=== PATIENT | female | born 1980 | race African-American/Black ===

== ENCOUNTER 2018-01-29 08:12 | Emergency (ER) | payer OTHER ==
[2018-01-29] MEDS ORDERED: MORPHINE 4 MG/ML SYR ONE (08:41)
[2018-01-29] MEDS ORDERED: ONDANSETRON 4 MG/2 ML VIAL ONE (08:41)
[2018-01-29] MEDS ORDERED: NA CHLORIDE 0.9% 1,000 ML ONE (08:41)
[2018-01-29 09:04] LABS: Absolute Lymphocytes (CBC) 1.5 K/uL (0.7-4.9); Absolute Monocytes 0.3 K/uL (0.1-1.3); Absolute Neutrophil 6.5 K/uL (1.8-8.0); Basophils % 0.9 % (0-1.3); Eosinophils % 0.2 % (0-4.4); Hematocrit 47.6 % (36.0-45.0); Lymphocytes % 18.1 % (15.3-44.8); MCH 31.6 pg (27.0-35.0); MCV 92.4 fL (80-100); MPV 8.3 fL (7.6-11.3); Monocytes % 4.1 % (3.3-12.3); RBC Red Blood Cell Count 5.15 M/uL (3.86-4.86)
[2018-01-29 09:43] LABS: ALT/SGPT 22 U/L (12-78); AST/SGOT 20 U/L (15-37); Albumin 4.5 g/dL (3.4-5.0); Alkaline Phosphatase 63 U/L (45-117); BUN Blood Urea Nitrogen 6 mg/dL (7-18); Bicarbonate 27 mmol/L (21-32); Bilirubin Direct < 0.1 mg/dL (0-0.2); Bilirubin Total 0.2 mg/dL (0.2-1.0); Glucose Level 119 mg/dL (74-106); Lipase 256 U/L (73-393); Potassium 3.9 mmol/L (3.5-5.1); Sodium Level 137 mmol/L (136-145)
--- NOTE | 2018-01-29 11:09 | RAD REPORT ---
EXAM DESCRIPTION: CT - Stone Protocol - 01/29/2018 11:00 am CLINICAL HISTORY: Flank pain. left sided abdominal pain COMPARISON: No comparisons TECHNIQUE: Axial images were obtained without oral or IV contrast. Lack of contrast limits solid org an and vascular assessment. The [id number] spans the entirety of the system partially obscuring uppermost abdomen and lung bases. Coronal reformatted images were obtained and reviewed. All CT scans are performed using dose optimization technique as appropriate and may include automated exposure control or mA/KV adjustment according to patient size. FINDINGS: The lower lung lopez are clear. Imaged portions of the liver and spleen show no suspicious findings on non-contrast imaging. The panc reas and adrenal glands are normal. No pathologic lymphadenopathy in the abdomen or pelvis. No urinary tract stones or obstructive uropathy. No bowel obstruction, free air, free fluid or abscess. Normal appendix noted. No significant bony abnormality. IMPRESSION: No urinary tract stones or obstructive uropathy.
[2018-01-29] MEDS ORDERED: LISINOPRIL 20 MG TAB ONE (11:14)
[2018-01-29] MEDS ORDERED: AMLODIPINE 5 MG TAB ONE (11:14)
--- NOTE | 2018-01-29 12:36 | ER ---
Nurse's Notes [facility] Name: Kaleigh Tellez Age: 37 yrs Sex: Female : 1980 Arrival Date: 01/29/2018 Time: 08:15 Bed 14 Private MD: None, None Diagnosis: Vomiting Presentation: 01/29 08:23 Presenting complaint: Patient states: has had left sided abd pain since , also iw has been vomiting, has not been able to keep BP med down, denies diarrhea, has been taking PO zofran and phenergan with no relief. Transition of care: patient was not received from another setting of care. Onset of symptoms was January 27, 2018. Risk Assessment: Do you want to hurt yourself or someone else? Patient reports no desire to harm self or others. Initial Sepsis Screen: Does the patient meet any 2 criteria? No. Patient's initial sepsis screen is negative. Does the patient have a suspected source of infection? No. Patient's initial sepsis screen is negative. Care prior to arrival: None. 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 - Social history:: Smoking status: Patient uses tobacco products, 1-2 cigarettes per day. - Ebola Screening: : Patient negative for fever greater than or equal to 101.5 degrees Fahrenheit, and additional compatible Ebola Virus Disease symptoms Patient denies exposure to infectious person Patient denies travel to an Ebola-affected area in the 21 days before illness onset No symptoms or risks identified at this time. Screenin:11 Abuse screen: Denies threats or abuse. Nutritional screening: No deficits noted. tw2 Tuberculosis screening: No symptoms or risk factors identified. Fall Risk None identified. Assessment: 08:30 General: Appears uncomfortable, Behavior is calm, cooperative, appropriate for age. tw2 Pain: Complains of pain in left upper quadrant. Neuro: Level of Consciousness is awake, alert, obeys commands, Oriented to person, place, time, situation. Cardiovascular: Heart tones S1 S2 Capillary refill < 3 seconds Patient's skin is warm and dry. Respiratory: Airway is patent Respiratory effort is even, unlabored, Respiratory pattern is regular, symmetrical, Breath sounds are clear bilaterally. GI: Abdomen is flat, Bowel sounds present X 4 quads. Abd is soft X 4 quads. : No signs and/or symptoms were reported regarding the genitourinary system. EENT: No signs and/or symptoms were reported regarding the EENT system. Derm: No signs and/or symptoms reported regarding the dermatologic system. Musculoskeletal: Capillary refill < 3 seconds, Range of motion: intact in all extremities. 10:05 Reassessment: Patient appears in no apparent distress at this time. Patient and/or tw2 family updated on plan of care and expected duration. Pain level reassessed. Patient is alert, oriented x 3, equal unlabored respirations, skin warm/dry/pink. Reassessment: provider notified iv infiltration, no iv access at this time, MARINA Morales unable to get iv at this time. 11:00 Reassessment: Patient appears in no apparent distress at this time. No changes from tw2 previously documented assessment. Patient and/or family updated on plan of care and expected duration. Pain level reassessed. Patient is alert, oriented x 3, equal unlabored respirations, skin warm/dry/pink. 12:00 Reassessment: Patient appears in no apparent distress at this time. No changes from tw2 previously documented assessment. Patient and/or family updated on plan of care and expected duration. Pain level reassessed. Patient is alert, oriented x 3, equal unlabored respirations, skin warm/dry/pink. 13:00 Reassessment: Patient appears in no apparent distress at this time. No changes from tw2 previously documented assessment. Patient and/or family updated on plan of care and expected duration. Pain level reassessed. Patient is alert, oriented x 3, equal unlabored respirations, skin warm/dry/pink. Vital Signs: 08:26 BP 200 / 139; Pulse 89; Resp 16; Temp 98.2(O); Pulse Ox 98% on R/A; Pain 10/10; iw 09:10 BP 193 / 101; Pulse 79; Resp 17; Pulse Ox 99% on R/A; tw2 11:00 BP 177 / 103; Pulse 79; Resp 17; Pulse Ox 99% on R/A; tw2 12:26 BP 178 / 114; Pulse 77; Resp 18; Pulse Ox 100% on R/A; tw2 ED Course: 08:15 Patient arrived in ED. sb2 08:15 None, None is Private Physician. sb2 08:18 [facility]. jmm 08:18 Loy Ya MD is Attending Physician. jmm 08:25 Triage completed. iw 08:25 Placed in gown. Bed in low position. Call light in reach. Adult w/ patient. Pulse ox tw2 on. NIBP on. Warm blanket given. 08:26 Arm band placed on. iw 08:27 Ann-Marie Page, MARINA is Primary Nurse. tw2 08:45 Missed attempt(s): 22 gauge in left antecubital area. Bleeding controlled, band aid tw2 applied, catheter tip intact. Missed attempt(s): 22 gauge in left antecubital area. Bleeding controlled, band aid applied, catheter tip intact. 08:50 Inserted saline lock: 22 gauge in right antecubital area, using aseptic technique. tw2 ,using aseptic technique. per MARINA Lind Blood collected. 09:55 IV discontinued, intact, bleeding controlled, Pressure dressing applied, iv infiltrated tw2 to RIGHT AC. 10:29 Missed attempt(s): 22 gauge in left antecubital area. using US guided technique by tw2 DAVID Wilson. Bleeding controlled, band aid applied, catheter tip intact. 10:35 Missed attempt(s): 18 gauge in right antecubital area. using US guided technique by tw2 DAVID Menjivar. Bleeding controlled, band aid applied, catheter tip intact. 11:01 CT Stone Protocol In Process Unspecified. EDMS 12:35 Hemant Huerta MD is Referral Physician. jmm 13:09 No provider procedures requiring assistance completed. tw2 Administered Medications: 08:55 Drug: Zofran 4 mg Route: IVP; Site: right antecubital; tw2 10:07 Follow up: Response: No adverse reaction; Nausea is decreased tw2 08:58 Drug: morphine 4 mg Route: IVP; Site: right antecubital; tw 09:45 Follow up: Response: No adverse reaction; Pain is decreased tw 09:01 Drug: NS 0.9% 1000 ml Route: IV; Rate: 1 bolus; Site: right antecubital; tw 11:08 Drug: amLODIPine 5 mg Route: PO; 11:09 Drug: Lisinopril 20 mg Route: PO; Outcome: 12:36 Discharge ordered by . zeny 13: Patient left the ED. 13: Discharged to home ambulatory. 13: Condition: stable 13: Discharge instructions given to patient, Instructed on discharge instructions, follow up and referral plans. medication usage, Demonstrated understanding of instructions, follow-up care, medications, Prescriptions given X 2. Signatures: Dispatcher [employer] EDMS Steve Mendoza PA PA jmm Williams, Irene, RN MARINA iw Ann-Marie Page RN RN tw2 Claudia Webb sb2 Corrections: (The following items were deleted from the chart) 08:30 08:23 Acuity: ARIANE 3 iw
--- NOTE | 2018-01-29 12:36 | EDPHYS ---
Physician Documentation [facility] Name: Kaleigh Tellez Age: 37 yrs Sex: Female : 1980 Arrival Date: 01/29/2018 Time: 08:15 Bed 14 Private MD: None, None ED Physician Loy Ya HPI: 01/29 08:29 This 37 yrs old Black Female presents to ER via Ambulatory with complaints of Abdominal jmm Pain. 08:29 The patient presents with abdominal pain in the left upper quadrant. Onset: The jmm symptoms/episode began/occurred gradually, 4 day(s) ago. Associated signs and symptoms: Pertinent positives: vomiting. The symptoms are described as achy. Modifying factors: The symptoms are alleviated by nothing. This is a 37 year old female with a history of of htn that presents to the ED with left sided abdominal pain and vomiting beginning this past thrusday. Denies diarrhea. Patient states she has had similar episodes in the past with no diagnosis. . 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 - Social history:: Smoking status: Patient uses tobacco products, 1-2 cigarettes per day. - Ebola Screening: : Patient negative for fever greater than or equal to 101.5 degrees Fahrenheit, and additional compatible Ebola Virus Disease symptoms Patient denies exposure to infectious person Patient denies travel to an Ebola-affected area in the 21 days before illness onset No symptoms or risks identified at this time. ROS: 08:29 Constitutional: Negative for fever, chills, and weight loss, Eyes: Negative for injury, jmm pain, redness, and discharge, Cardiovascular: Negative for chest pain, palpitations, and edema, Respiratory: Negative for shortness of breath, cough, wheezing, and pleuritic chest pain. 08:29 Abdomen/GI: Positive for abdominal pain, nausea and vomiting. 08:29 All other systems are negative. Exam: 08:29 Head/Face: atraumatic. Eyes: EOMI, no conjunctival erythema appreciated ENT: Moist [facility] Mucus Membranes Neck: Trachea midline, Supple Chest/axilla: Normal chest wall appearance and motion. Cardiovascular: Regular rate and rhythm. No edema appreciated Respiratory: Normal respirations, no respiratory distress appreciated 08:29 Constitutional: The patient appears alert, awake, uncomfortable. 08:29 Abdomen/GI: Inspection: abdomen appears normal, Bowel sounds: normal, Palpation: soft, mild abdominal tenderness, in the left upper quadrant. 08:29 Back: ROM is normal, CVA tenderness, is absent. 08:29 Musculoskeletal/extremity: ROM: intact in all extremities. 08:29 Skin: Appearance: Color: normal in color. 08:29 Neuro: Orientation: is normal, Mentation: is normal, Memory: is normal. 08:29 Psych: Behavior/mood is pleasant, cooperative. Vital Signs: 08:26 BP 200 / 139; Pulse 89; Resp 16; Temp 98.2(O); Pulse Ox 98% on R/A; Pain 10/10; iw 09:10 BP 193 / 101; Pulse 79; Resp 17; Pulse Ox 99% on R/A; tw2 11:00 BP 177 / 103; Pulse 79; Resp 17; Pulse Ox 99% on R/A; tw2 12:26 BP 178 / 114; Pulse 77; Resp 18; Pulse Ox 100% on R/A; tw2 MDM: 08:26 Patient medically screened. [facility] 10:58 Data reviewed: vital signs, nurses notes, lab test result(s). [facility] 12:35 Counseling: I had a detailed discussion with the patient and/or guardian regarding: the [facility] historical points, exam findings, and any diagnostic results supporting the discharge/admit diagnosis, lab results, the need for outpatient follow up, to return to the emergency department if symptoms worsen or persist or if there are any questions or concerns that arise at home. 12:35 ED course: Patient states feeling better after IVF and antiemetics. Abdomen is soft. CT [facility] negative. I do not currently suspect an acute intraabdominal process. Patient advised to follow up with GI and otherwise given strict return precautions. patient understood and agrees with the plan of care. . 01/29 08:27 Order name: Basic Metabolic Panel; Complete Time: 09:45 [facility] 01/29 08:27 Order name: CBC with Diff; Complete Time: 09:15 [facility] 01/29 08:27 Order name: Creatinine for Radiology; Complete Time: 09:22 [facility] 01/29 08:27 Order name: Hepatic Function; Complete Time: 09:45 [facility] 01/29 08:27 Order name: Lipase; Complete Time: 09:45 [facility] 01/29 08:27 Order name: Test, Serum; Complete Time: 09:37 [facility] 01/29 08:27 Order name: IV Saline Lock; Complete Time: 09:02 [facility] 01/29 10:46 Order name: CT Stone Protocol; Complete Time: 11:10 [facility] 01/29 08:27 Order name: Labs collected and sent; Complete Time: 09:02 [facility] 01/29 11:37 Order name: Vital Signs [facility] Administered Medications: 08:55 Drug: Zofran 4 mg Route: IVP; Site: right antecubital; tw2 10:07 Follow up: Response: No adverse reaction; Nausea is decreased tw2 08:58 Drug: morphine 4 mg Route: IVP; Site: right antecubital; tw2 09:45 Follow up: Response: No adverse reaction; Pain is decreased tw2 09:01 Drug: NS 0.9% 1000 ml Route: IV; Rate: 1 bolus; Site: right antecubital; tw2 11:08 Drug: amLODIPine 5 mg Route: PO; tw2 11:09 Drug: Lisinopril 20 mg Route: PO; tw2 Disposition: 16:39 Co-signature as Attending Physician, Loy Ya MD. rn Disposition: 01/29/18 12:36 Discharged to Home. Impression: Vomiting. - Condition is Stable. - Discharge Instructions: Nausea and Vomiting, Adult. - Prescriptions for Zofran ODT 4 mg Oral tablet,disintegrating - place 1 tablet by TRANSLINGUAL route every 6 hours; 20 tablet. promethazine 25 mg Rectal suppository - insert 1 suppository by RECTAL route every 4 hours; 12 suppository. - Medication Reconciliation Form, Thank You Letter, Antibiotic Education, Prescription Opioid Use form. - Follow up: Private Physician; When: 2 - 3 days; Reason: Recheck today's complaints, Continuance of care, Re-evaluation by your physician. Follow up: Hemant Huerta MD; When: As needed; Reason: Recheck today's complaints, Continuance of care, Re-evaluation by your physician. Signatures: Dispatcher [employer] [facility] Steve Mendoza PA PA jmm Williams, Irene, Loy Rowell RN, MD MD rn Wise, Tara, RN RN tw2 Corrections: (The following items were deleted from the chart) 11:00 09:16 Abdomen Pelvis W Con+CT.RAD.BRZ ordered. [facility] EDNH 13:09 12:36 01/29/2018 12:36 Discharged to Home. Impression: Vomiting. Condition is Stable. tw2 Forms are Medication Reconciliation Form, Thank You Letter, Antibiotic Education, Prescription Opioid Use. Follow up: Private Physician; When: 2 - 3 days; Reason: Recheck today's complaints, Continuance of care, Re-evaluation by your physician. Follow up: Hemant Huerta; When: As needed; Reason: Recheck today's complaints, Continuance of care, Re-evaluation by your physician. zeny
== END 2018-01-29 13:09 | disposition home or self-care (01) ==
LOC: ER 08:12
DX: R11.10 Vomiting, unspecified (principal); I10 Essential (primary) hypertension; F17.210 Nicotine dependence, cigarettes, uncomplicated; Z88.8 Allergy status to other drugs, medicaments and biological substances
CPT/HCPCS: 36415; 74176; 76377; 80048; 80076; 83690; 84703; 85025; 96374; 96375; 99284; J2405; J7030

== ENCOUNTER 2020-12-31 17:28 | Emergency (ER) | payer SELFPAY ==
[2020-12-31 18:58] LABS: Absolute Lymphocytes (CBC) 2.4 K/uL (0.7-4.9); Basophils % 0.7 % (0-1.3); Hematocrit 37.9 % (36.0-45.0); Lymphocytes % 30.7 % (15.3-44.8); MPV 8.6 fL (7.6-11.3); RBC Red Blood Cell Count 4.19 M/uL (3.86-4.86)
[2020-12-31 19:06] LABS: Urine Blood 3+ (Negative); Urine Glucose Negative (Negative); Urine Protein Negative (Negative); Urine Specific Gravity 1.015 (1.005-1.030); Urine pH 7.5 (5.0-7.0)
[2020-12-31 19:13] LABS: Urine Specific Gravity/Preg 1.015 (1.005-1.030)
[2020-12-31] MEDS ORDERED: NA CHLORIDE 0.9% 1,000 ML ONE (19:22)
[2020-12-31] MEDS ORDERED: ACETAMINOPHEN 500 MG TAB ONE (19:22)
[2020-12-31 19:37] LABS: ALT/SGPT 32 U/L (12-78); AST/SGOT 24 U/L (15-37); Albumin 3.7 g/dL (3.4-5.0); Alkaline Phosphatase 79 U/L (45-117); BUN Blood Urea Nitrogen 9 mg/dL (7-18); Bicarbonate 28 mmol/L (21-32); Bilirubin Direct < 0.1 mg/dL (0-0.2); Bilirubin Total 0.2 mg/dL (0.2-1.0); Glucose Level 82 mg/dL (74-106); Lipase 191 U/L (73-393); Potassium 4.4 mmol/L (3.5-5.1); Protein, Total 8.2 g/dL (6.4-8.2); Sodium Level 139 mmol/L (136-145)
[2020-12-31 19:37] LABS: Protime INR 1.08
[2020-12-31 19:55] LABS: Urine Amorphous Sediment 1+ /HPF (NONE SEEN); Urine Bacteria <20 /HPF (<20)
--- NOTE | 2020-12-31 20:09 | RAD REPORT ---
EXAM DESCRIPTION: US - Transvaginal Study Probe - 12/31/2020 7:49 pm CLINICAL HISTORY: left lower adnexal pain COMPARISON: No comparisonsStone Protocol dated 01/29/2018 FINDINGS: The uterus is normal in size, shape and echotexture. The uterus measures 9 cm The endometrial stripe measures 8 mm The right ovary was not visualized. Left ovary measures 2.6 x 3.5 x 1.5 cm with volume of 7 cc. Simpl e appearing left adnexal cyst. Vascular flow present within the left ovary. No significant pelvic ascites. IMPRESSION: The right ovary was not visualized. The left ovary is unremarkable.
--- NOTE | 2020-12-31 21:59 | RAD REPORT ---
EXAM DESCRIPTION: CTAbdomen Pelvis Wo Contrast - 12/31/2020 9:47 pm CLINICAL HISTORY: left lower abdomen pain COMPARISON: Stone Protocol dated 01/29/2018 TECHNIQUE: CT of the abdomen and pelvis was performed. All CT scans are performed using dose optimization technique as appropriate and may include automated exposure control or mA/KV adjustment according to patient size. FINDINGS: Lower chest: No acute abnormality. Liver: No acute abnormality or suspicious lesions. Biliary: No biliary ductal dilatation. Stomach: No significant focal abnormality. Duodenum: No significant focal abnormality. Pancreas: No significant abnormality. Spleen: No significant abnormality. Adrenal: No suspicious lesions. Kidney/ureter: No hydronephrosis. No renal calculi. Retroperitoneum: No retroperitoneal adenopathy. Vascular: No aneurysm. Bowel: No significant focal abnormality. Appendix not definitively identified. No secondary signs of acute appendicitis. Peritoneum: Bilateral inguinal lymphadenopathy, the largest on the left side measuring 2.5 cm. Tiny f at containing umbilical hernia. Bladder: Grossly unremarkable. Reproductive: No adnexal masses. Bones: No acute fracture. Other: n/a IMPRESSION: Inguinal lymphadenopathy, left greater than right. Also noted is inflammatory stranding around the left inguinal lymph node. This may represent lymphadenitis. No inciting etiology is identi fied. Suggest clinical follow-up to ensure resolution. Ultrasound-guided biopsy could be considered i f adenopathy persists.
--- NOTE | 2020-12-31 22:20 | EDPHYS ---
Physician Documentation [facility] Name: Kaleigh Tellez Age: 40 yrs Sex: Female : 1980 Arrival Date: 12/31/2020 Time: 17:33 Bed 8 Private MD: ED Physician Abiel Do HPI: 12/31 18:30 This 40 yrs old Black Female presents to ER via Ambulatory with complaints of Pelvic cp Pain. 18:30 The patient presents with vaginal bleeding that is with clots. Onset: The cp symptoms/episode began/occurred this morning. 18:30 Associated signs and symptoms: Pertinent positives: cramping, nausea, left lower cp abdomen pain that started yesterday, Pertinent negatives: constipation, diarrhea, fever, vomiting. Severity of symptoms: in the emergency department the symptoms are unchanged, despite home interventions. The patient's method of control includes nothing. Patient reports LMP 2 weeks ago, history of HTN but stopped taking prescribed meds. 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 - Social history:: Smoking status: Patient reports the use of cigarette tobacco products, denies chronic smoking, but will smoke occasionally. ROS: 18:35 Constitutional: Negative for body aches, chills, fever, poor PO intake. cp 18:35 Eyes: Negative for injury, pain, redness, and discharge. cp 18:35 ENT: Negative for ear pain, sore throat, difficulty swallowing, difficulty handling secretions. 18:35 Cardiovascular: Negative for chest pain, palpitations. 18:35 Respiratory: Negative for cough, shortness of breath, wheezing. 18:35 Abdomen/GI: Positive for abdominal pain, nausea, Negative for vomiting, diarrhea, constipation. 18:35 Back: Negative for radiated pain. 18:35 : Positive for vaginal bleeding, Negative for urinary symptoms. 18:35 Neuro: Negative for altered mental status, dizziness, headache, weakness. 18:35 All other systems are negative. Exam: 18:40 Constitutional: The patient appears in no acute distress, alert, awake, non-toxic, well cp developed, well nourished, uncomfortable. 18:40 Head/Face: Normocephalic, atraumatic. cp 18:40 Eyes: Periorbital structures: appear normal, Conjunctiva: normal, no exudate, no injection, Sclera: no appreciated abnormality, Lids and lashes: appear normal, bilaterally. 18:40 ENT: External ear(s): are unremarkable, Nose: is normal, Mouth: Lips: moist, Oral mucosa: moist, Posterior pharynx: Airway: no evidence of obstruction, patent. 18:40 Chest/axilla: Inspection: normal. 18:40 Cardiovascular: Rate: normal, Rhythm: regular. 18:40 Respiratory: the patient does not display signs of respiratory distress, Respirations: normal, no use of accessory muscles, no retractions, labored breathing, is not present, Breath sounds: are clear throughout, no decreased breath sounds, no stridor, no wheezing. 18:40 Abdomen/GI: Inspection: abdomen appears normal, Bowel sounds: active, all quadrants, Palpation: soft, in all quadrants, mild abdominal tenderness, in the left lower quadrant, rebound tenderness, is not appreciated, voluntary guarding, is elicited in the left lower quadrant. 18:40 Back: CVA tenderness, is absent. 18:40 Skin: cellulitis, is not appreciated, no rash present. 18:40 Neuro: Orientation: to person, place \T\ time. Mentation: is normal, Motor: moves all fours, strength is normal, Sensation: is normal. Vital Signs: 17:34 BP 208 / 125; Pulse 97; Resp 18; Temp 98.4; Pulse Ox 100% ; Weight 65.77 kg; Height 5 ch5 ft. 1 in. (154.94 cm); Pain 8/10; 19:01 BP 166 / 102; Pulse 94; Resp 16; Pulse Ox 99% on R/A; jt3 17:34 Body Mass Index 27.40 (65.77 kg, 154.94 cm) ch5 MDM: 18:03 Patient medically screened. cp 18:30 Differential diagnosis: dysmenorrhea, ectopic , Neoplasm ovarian cyst, pelvic cp inflammatory disease, ruptured ectopic , uterine fibroids, urinary tract infection, vaginosis. 22:10 Data reviewed: vital signs, nurses notes, lab test result(s), radiologic studies, CT cp scan, ultrasound. 22:10 Counseling: I had a detailed discussion with the patient and/or guardian regarding: the cp historical points, exam findings, and any diagnostic results supporting the discharge/admit diagnosis, lab results, radiology results, the need for outpatient follow up, an OB/Gyne specialist, to return to the emergency department if symptoms worsen or persist or if there are any questions or concerns that arise at home. Response to treatment: the patient's symptoms have mildly improved after treatment, and as a result, I will discharge patient. ED course: VSS. Labs reviewed and H/H stable. Discussed elevated blood pressure and need for f/u. Will treat enlarged lymph nodes with oral antibiotic. Discharge to home for continued monitoring and recommend gynecology f/u. 12/31 18:20 Order name: Basic Metabolic Panel; Complete Time: 20:01 cp 12/31 18:20 Order name: CBC with Diff; Complete Time: 19:20 cp 12/31 19:34 Interpretation: Reviewed. cp 12/31 18:20 Order name: Hepatic Function; Complete Time: 20:01 cp 12/31 20:01 Interpretation: Normal except: GLOB 4.5; A/G 0.8. cp 12/31 18:20 Order name: Lipase; Complete Time: 20:01 cp 12/31 18:20 Order name: PT-INR; Complete Time: 22:06 cp 12/31 18:20 Order name: Ptt, Activated; Complete Time: 22:06 cp 12/31 18:20 Order name: US Transvaginal Study (Probe); Complete Time: 20:11 cp 12/31 18:20 Order name: Urine Microscopic Only; Complete Time: 20:01 cp 12/31 20:01 Interpretation: Normal except: URBC 5-10; SQEPI 5-10. cp 12/31 18:20 Order name: Type And Screen; Complete Time: 22:06 cp 12/31 19:05 Order name: Urine Dipstick-Ancillary; Complete Time: 19:20 EDMS 12/31 19:34 Interpretation: Normal except: UBLD 3+; UPH 7.5. cp 12/31 19:06 Order name: Urine --Ancillary (enter results); Complete Time: 19:20 tt3 12/31 21:22 Order name: CT Abd/Pelvis - Without Contrast; Complete Time: 22:06 cp 12/31 18:20 Order name: IV Saline Lock; Complete Time: 19:23 cp 12/31 18:20 Order name: Labs collected and sent; Complete Time: 19:23 cp 12/31 18:20 Order name: Urine Dipstick-Ancillary (obtain specimen); Complete Time: 19:00 cp 12/31 18:20 Order name: Urine Test (obtain specimen); Complete Time: 19:00 cp Administered Medications: 18:59 Drug: Tylenol 1000 mg Route: PO; jt3 19:22 Drug: NS 0.9% 1000 ml Route: IV; Rate: 1000 ml/hr; Site: left hand; [facility] Disposition: 01/01 03:43 Co-signature as Attending Physician, Abiel Do MD. 7 Disposition Summary: 12/31/20 22:19 Discharge Ordered Location: Home cp Problem: new cp Symptoms: have improved cp Condition: Stable cp Diagnosis - Enlarged lymph nodes, unspecified - lower abdomen cp - Abnormal uterine and vaginal bleeding, unspecified cp - Hypertensive heart disease without heart failure cp Followup: cp - With: Olamide Zafar MD - When: 1 - 2 days - Reason: vaginal bleeding Discharge Instructions: - Discharge Summary Sheet cp - Abnormal Uterine Bleeding cp - Lymphadenopathy cp - Hypertension, Adult cp Forms: - Medication Reconciliation Form cp - Thank You Letter cp - Antibiotic Education cp - Prescription Opioid Use cp Prescriptions: - Clindamycin HCl 300 mg Oral Capsule - take 1 capsule by ORAL route every 6 hours for 10 days; 40 capsule; Refills: 0, cp Product Selection Permitted - Ibuprofen 800 mg Oral Tablet - take 1 tablet by ORAL route every 8 hours As needed take with food; 30 tablet; cp Refills: 0, Product Selection Permitted Signatures: Dispatcher [employer] EDVA Sarthak Lambert PA PA cp Leal, Jahala RN RN jl7 Abiel Do MD MD mh7 Jak Maier RN RN ch5 [facility] RN RN jt3 Corrections: (The following items were deleted from the chart) 12/31 21:22 20:21 Abdomen Pelvis W Con+CT.RAD.BRZ ordered. EDMS EDMS
--- NOTE | 2020-12-31 22:20 | ER ---
Nurse's Notes [facility] Name: Kaleigh Tellez Age: 40 yrs Sex: Female : 1980 Arrival Date: 12/31/2020 Time: 17:33 Bed 8 Private MD: Diagnosis: Enlarged lymph nodes, unspecified-lower abdomen;Abnormal uterine and vaginal bleeding, unspecified;Hypertensive heart disease without heart failure Presentation: 12/31 17:34 Chief complaint: Patient states: Lower abd pain starting yesterday. " I think it is ch5 ovarian cyst" woke up with Vag bleeding. Coronavirus screen: Vaccine status: Patient reports being unvaccinated. Ebola Screen: Patient negative for fever greater than or equal to 101.5 degrees Fahrenheit, and additional compatible Ebola Virus Disease symptoms Patient denies exposure to infectious person. Patient denies travel to an Ebola-affected area in the 21 days before illness onset. No symptoms or risks identified at this time. Initial Sepsis Screen: Does the patient meet any 2 criteria? No. Patient's initial sepsis screen is negative. Does the patient have a suspected source of infection? No. Patient's initial sepsis screen is negative. Risk Assessment: Do you want to hurt yourself or someone else? Patient reports no desire to harm self or others. Onset of symptoms was December 30, 2020. 17:34 Method Of Arrival: Ambulatory [facility] 17:34 Acuity: ARIANE 3 ch5 Triage Assessment: 17:38 General: Appears uncomfortable, Behavior is anxious, crying. Pain: Complains of pain in ch5 right lower quadrant and more severe left lower quadrant. 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 - Social history:: Smoking status: Patient reports the use of cigarette tobacco products, denies chronic smoking, but will smoke occasionally. Screenin:56 Abuse screen: Denies threats or abuse. Denies injuries from another. Nutritional jl7 screening: No deficits noted. Tuberculosis screening: No symptoms or risk factors identified. Fall Risk IV access (20 points). Total Ayala Fall Scale indicates No Risk (0-24 pts). Assessment: 18:59 General: Appears in no apparent distress. Behavior is calm. Pain: Complains of pain in jt3 pelvis Pain radiates to pelvis Pain currently is 6 out of 10 on a pain scale. Quality of pain is described as sharp. : Reports cramping, Pain on the left pelvic region. Pt. endorses vaginal bleeding since yesterday. Denies dizziness. Vital Signs: 17:34 BP 208 / 125; Pulse 97; Resp 18; Temp 98.4; Pulse Ox 100% ; Weight 65.77 kg; Height 5 ch5 ft. 1 in. (154.94 cm); Pain 8/10; 19:01 BP 166 / 102; Pulse 94; Resp 16; Pulse Ox 99% on R/A; jt3 17:34 Body Mass Index 27.40 (65.77 kg, 154.94 cm) ch5 ED Course: 17:33 Patient arrived in ED. ds1 17:37 Triage completed. ch5 17:38 Arm band placed on right wrist. ch5 17:49 Sarthak Lambert PA is PHCP. cp 17:49 Loy Ya MD is Attending Physician. cp 18:04 [facility], RN is Primary Nurse. jt3 18:56 Patient has correct armband on for positive identification. Placed in gown. Bed in low jl7 position. Call light in reach. Side rails up X 1. seal mixing operator on. Pulse ox on. NIBP on. 19:01 No provider procedures requiring assistance completed. jt3 19:21 Abiel Do MD is Attending Physician. cp 19:22 Initial lab(s) drawn, by ky, sent to lab. Inserted saline lock: 22 gauge in right hand, jl7 using aseptic technique. Blood collected. 19:49 US Transvaginal Study (Probe) In Process Unspecified. EDMS 21:48 CT Abd/Pelvis - Without Contrast In Process Unspecified. EDMS 22:18 Olamide Zafar MD is Referral Physician. cp 22:37 IV discontinued, intact, bleeding controlled, No redness/swelling at site. Pressure df1 dressing applied. Administered Medications: 18:59 Drug: Tylenol 1000 mg Route: PO; jt3 19:22 Drug: NS 0.9% 1000 ml Route: IV; Rate: 1000 ml/hr; Site: left hand; jl7 Outcome: 22:19 Discharge ordered by . cp 22:37 Discharged to home ambulatory. df1 22:37 Condition: stable 22:37 Discharge instructions given to patient, Instructed on discharge instructions, follow up and referral plans. medication usage, Demonstrated understanding of instructions, follow-up care, medications, Prescriptions given X 2. 22:38 Patient left the ED. df1 Signatures: Dispatcher [employer] EDMS Viviana Rmaos ds1 Sarthak Lambert PA PA cp Leal, Jahala, RN RN jl7 Jak Maier RN RN ch5 Giovanna Beck df1 [facility] RN RN jt3
[2020-12-31 22:45] VITALS: TEMP 98.4
[2020-12-31 22:46] VITALS: BP 166/102; O2SAT 99
== END 2020-12-31 22:38 | disposition home or self-care (01) ==
LOC: ER 17:28
DX: N93.9 Abnormal uterine and vaginal bleeding, unspecified (principal); R59.0 Localized enlarged lymph nodes; I11.9 Hypertensive heart disease without heart failure; F17.210 Nicotine dependence, cigarettes, uncomplicated; Z88.3 Allergy status to other anti-infective agents; Z88.8 Allergy status to other drugs, medicaments and biological substances
CPT/HCPCS: 36415; 74176; 76830; 80048; 80076; 81003; 81015; 81025; 83690; 85025; 85610; 85730; 86850; 86900; 86901; 99284; J7030

== ENCOUNTER 2021-02-06 08:11 | Inpatient (IN) | payer SELFPAY ==
[~2021-02-06 08:11] MED LIST: LORazepam 2 MG/ML VIAL ONE; RSI MEDICATION KIT IV ONE
[2021-02-06] MEDS ORDERED: NA CHLORIDE 0.9% 2,000 ML ONE (08:20)
[2021-02-06] MEDS ORDERED: propofoL 1,000 MG/100 ML VIAL IV ONE ×2 (08:26→19:52)
[2021-02-06] MEDS ORDERED: MIDAZOLAM HCL 2 MG/2 ML INJ ONE (08:46)
[2021-02-06 08:50] LABS: Urine Blood 3+ (Negative); Urine Glucose Trace (Negative); Urine Protein 3+ (Negative); Urine Specific Gravity >=1.030 (1.005-1.030)
[2021-02-06 08:54] LABS: Absolute Lymphocytes (CBC) 4.9 K/uL (0.7-4.9); Basophils % 0.3 % (0-1.3); Hematocrit 42.4 % (36.0-45.0); Lymphocytes % 9.3 % (15.3-44.8); MPV 7.3 fL (7.6-11.3); RBC Red Blood Cell Count 4.39 M/uL (3.86-4.86)
[2021-02-06 09:03] LABS: Protime INR 1.33
[2021-02-06] MEDS ORDERED: FOSPHENYTOIN PE 500 MG/10 ML VIAL ONE (09:05)
[2021-02-06] MEDS ORDERED: NA CHLORIDE 0.9% 100 ML ONE ×2 (09:05→09:44)
[2021-02-06] MEDS ORDERED: ROCURONIUM 50 MG/5 ML VIAL IV ONE (09:13)
--- NOTE | 2021-02-06 09:13 | RAD REPORT ---
EXAM DESCRIPTION: CT - Head Brain Wo Cont - 02/06/2021 8:58 am CLINICAL HISTORY: Seizure COMPARISON: None TECHNIQUE: Computed axial tomography of the head was obtained. IV contrast was not requested. All CT scans are performed using dose optimization technique as appropriate and may include automated exposure control or mA/KV adjustment according to patient size. FINDINGS: An intracranial bleed is not seen . Subtle low-density area right internal capsule and left caudate The ventricles are normal in caliber. No extra-axial fluid collection is noted. Fluid within the sinuses/ mastoids is not seen. IMPRESSION: Subtle low-density areas right internal capsule and left caudate. These could be acute o r chronic. MRI Brain recommended .
[2021-02-06 09:24] LABS: Albumin 3.8 g/dL (3.4-5.0); Alkaline Phosphatase 288 U/L (45-117); BUN Blood Urea Nitrogen 32 mg/dL (7-18); Bilirubin Direct 0.1 mg/dL (0-0.2); Bilirubin Total 0.2 mg/dL (0.2-1.0); Creatine Phosphokinase 386 U/L (26-192); Glucose Level 158 mg/dL (74-106); Lipase 492 U/L (73-393); Protein, Total 8.5 g/dL (6.4-8.2); Sodium Level 145 mmol/L (136-145)
[2021-02-06 09:26] LABS: Potassium 3.3 mmol/L (3.5-5.1)
[2021-02-06 09:27] LABS: ALT/SGPT 1071 U/L (12-78); AST/SGOT 1312 U/L (15-37); Bicarbonate 13 mmol/L (21-32)
[2021-02-06 09:28] LABS: Amylase 807 U/L (25-115); Troponin (Emerg Dept Use Only) 6.21 ng/mL (0.0-0.045)
[2021-02-06 09:30] LABS: Blood Morphology Comment NOT SEEN (NOT SEEN); Platelet Estimate ADEQ
[2021-02-06] MEDS ORDERED: NA CHLORIDE 0.9% 500 ML ONE (09:30)
[2021-02-06] MEDS ORDERED: NA CHLORIDE 0.9% 1,000 ML ONE ×2 (09:30→14:37)
[2021-02-06 09:31] LABS: Smudge Cells FEW; Toxic Granulation 1+
[2021-02-06 09:38] LABS: Urine Bacteria 20-50 /HPF (<20); Urine Urothelial Cells <5 /HPF (NONE SEEN)
[2021-02-06 09:39] LABS: Urine RBC <5 /HPF (NONE SEEN)
[2021-02-06] MEDS ORDERED: HYDROMORPHONE HCL 1 MG/ML INJ ONE (09:43)
[2021-02-06] MEDS ORDERED: CEFTRIAXONE 1000 MG/VIAL ONE ×2 (09:44→22:38)
[2021-02-06 09:46] LABS: Barbiturates NEGATIVE (NEGATIVE); Benzodiazepines NEGATIVE (NEGATIVE); Cocaine NEGATIVE (NEGATIVE); METHAMPHETAM NEGATIVE (NEGATIVE); Methadone NEGATIVE (NEGATIVE); Opiates NEGATIVE (NEGATIVE); Phencyclidine NEGATIVE (NEGATIVE); THC Cannibis NEGATIVE (NEGATIVE)
[2021-02-06] MEDS ORDERED: VANCOMYCIN 1.25 GM in NA CHLORIDE 0.9% 250 ML IVPB ONE (10:00)
[2021-02-06 10:11] LABS: CSF Glucose 179 mg/dL (40-70)
[2021-02-06 10:12] LABS: Arterial Blood Carboxyhemoglob 1.5 % (0-1.5); Blood Gas Oxyhemoglobin 95.8 % (94-97); Blood O2 Saturation 98.7 % (92-98.5)
[2021-02-06 10:29] LABS: Appearance CLEAR (CLEAR); Body Fluid Source CSF; Body Fluid WBC 2 /mm^3; Color of fluid Colorless (COLORLESS)
--- NOTE | 2021-02-06 10:30 | RAD REPORT ---
EXAM DESCRIPTION: Trace Single View02/06/2021 8:56 am CLINICAL HISTORY: Device placement endotracheal tube placement IMPRESSION: An endotracheal tube has been inserted with its tip in the very proximal right mainstem bronchus.
--- NOTE | 2021-02-06 10:32 | RAD REPORT ---
EXAM DESCRIPTION: Trace Single View02/06/2021 9:57 am CLINICAL HISTORY: Device placement endotracheal tube placement IMPRESSION: An endotracheal tube has been retracted. Tip lies at lexus Nasogastric tube is coiled within the stomach
[2021-02-06 10:34] LABS: Appearance CLEAR (CLEAR); Body Fluid Source CSF; Body Fluid WBC 2 /mm^3; Color of fluid Colorless (COLORLESS); Fluid Total Volume 2 ml
--- NOTE | 2021-02-06 10:34 | RAD REPORT ---
EXAM DESCRIPTION: Trace Single View02/06/2021 9:57 am CLINICAL HISTORY: Shortness of breath FINDINGS: Endotracheal tube with its tip at the lexus. Nasogastric tube is been retracted. The tip lies within the stomach 3.6 centimeters from the GE junct ion Left lateral base is hazy which may indicate atelectasis or infiltrate
[2021-02-06 10:52] LABS: CKMB Creatine Kinase MB 20.6 ng/mL (1.0-3.6)
[2021-02-06] MEDS ORDERED: NOREPINEPHRINE 4mg/D5W 250mL 4 MG/250 ML BAG IV ONE (11:57)
--- NOTE | 2021-02-06 12:13 | ER ---
Nurse's Notes [facility] Name: Kaleigh Tellez Age: 40 yrs Sex: Female : 1980 Arrival Date: 02/06/2021 Time: 08:12 Bed 27 Private MD: Diagnosis: Epileptic seizures related to external causes, not intractable, with status epilepticus;Altered mental status, unspecified;Acute kidney failure, unspecified Presentation: 02/06 08:12 Chief complaint: EMS states: "family found the pt this morning in this condition and jd3 would not wake up. gasping respirations. nasal trumpet applied. posturing noted. unresponsive.". Coronavirus screen: difficulty breathing, Client presents with at least one sign or symptom that may indicate coronavirus-19. Standard/surgical mask placed on the client. Ebola Screen: Patient negative for fever greater than or equal to 101.5 degrees Fahrenheit, and additional compatible Ebola Virus Disease symptoms. Initial Sepsis Screen: Does the patient meet any 2 criteria? Altered Mental Status. HR > 90 bpm. Yes Does the patient have a suspected source of infection? No. Patient's initial sepsis screen is negative. Risk Assessment: Do you want to hurt yourself or someone else? Patient reports no desire to harm self or others. Onset of symptoms was February 06, 2021. 08:12 Method Of Arrival: EMS: [facility] jd3 08:12 Acuity: ARIANE 1 jd3 Triage Assessment: 08:15 Respiratory: the patient has severe shortness of breath. jd3 08:15 Respiratory: Reports pt's family reported the pt would not wake up and was not jd3 breathing well. 18:30 Respiratory: Onset: The symptoms/episode began/occurred this morning. jd3 SURGICAL ENDOSCOPIST: 09:00 LMP N/A - tested negative UPT jd3 Historical: - Allergies: 08:55 Cycline family; jd3 08:55 HYDRALAZINE; jd3 08:55 Minocycline; jd3 08:55 TETRACYCLINES; jd3 - PMHx: 08:55 C Sections; Hypertension; jd3 - Immunization history:: Adult Immunizations unknown. - Social history:: Smoking status: unknown. - Family history:: not pertinent. - Hospitalizations: : No recent hospitalization is reported. Screenin:15 Abuse screen: Denies threats or abuse. Nutritional screening: No deficits noted. jd3 Tuberculosis screening: No symptoms or risk factors identified. Fall Risk None identified. Assessment: 08:15 Reassessment: Pt arrived unresponsive with nasal trumpet in place, snoring al4 respirations, posturing noted. Pt appears in distress, nurses and provider at bedside, prepping for intubation. 08:30 Reassessment: pt appears more relaxed after medication was given, respirations assisted al4 with ventilator, medications infusing through central line, pt is still posturing. 09:00 Reassessment: No changes from previously documented assessment. al4 09:30 Reassessment: posturing stopped, pt appears comfortable, respirations relaxed on al4 ventilator, family at bedside, provider at bedside discussing plan of care with family. medications infusing through central line with no problem. awaiting results. 10:00 Reassessment: No changes from previously documented assessment. Patients family al4 mentioned that patient has been taking "Kratum" and the provider has been made aware. 10:32 General: Appears ill, Behavior is sedated, intubated. Pain: Unable to use pain scale. al4 Patient is intubated. Neuro: Level of Consciousness is sedated, intubated. Oriented to sedated, intubated. Cardiovascular: Heart tones present Capillary refill < 3 seconds Clubbing of nail beds is absent Rhythm is sinus tachycardia. Respiratory: Airway via oral intubation Respiratory effort is assisted with ventilator Ventilator assessment: ET Tube: 7.5 23 cm at gum line. HOB > 30 degrees. Breath sounds are clear bilaterally. GI: Abdomen is non-distended, Bowel sounds present X 4 quads. Abd is soft. : No signs and/or symptoms were reported regarding the genitourinary system. EENT: No signs and/or symptoms were reported regarding the EENT system. Derm: Skin is intact, Skin is dry, Skin is normal, Skin temperature is cool. Musculoskeletal: No signs and/or symptoms reported regarding the musculoskeletal system. 12:00 Reassessment: blood pressure dropping, provider notified. Levophed started. pt with jd3 relaxed respirations on ventilator. central line and IV lines are patent. 12:15 Reassessment: blood pressure improved. provider at bedside talking with hospitalist. pt jd3 with relaxed respirations on ventilator. 12:45 Reassessment: No changes from previously documented assessment. Patient and/or family jd3 updated on plan of care and expected duration. Pain level reassessed. 13:15 Reassessment: No changes from previously documented assessment. Patient and/or family jd3 updated on plan of care and expected duration. Pain level reassessed. pt admitted to ER hold. Vital Signs: 08:19 BP 148 / 102; Pulse 133; Resp 22 A; Pulse Ox 100% on ETT ambu; jd3 08:22 BP 162 / 97; Pulse 135; Resp 23 A; Pulse Ox 100% on ETT vent; jd3 08:23 Weight 85 kg; ll3 08:31 BP 125 / 82; Pulse 137; Resp 28 A; Pulse Ox 100% on ETT vent; jd3 09:20 BP 100 / 69; Pulse 130; Resp 18 S; Pulse Ox 100% on ETT vent; jd3 09:25 BP 106 / 83; Pulse 132; Resp 16 A; Pulse Ox 100% on ETT vent; jd3 10:21 BP 116 / 82; Pulse 111; Resp 16; Temp 95.2; Pulse Ox 100% ; jl7 10:45 BP 108 / 93; Pulse 105; Resp 16 A; Pulse Ox 100% on ETT vent; al4 11:15 BP 101 / 74; Pulse 104; Resp 16 A; Pulse Ox 100% on ETT vent; jd3 11:30 BP 97 / 75; Pulse 101; Resp 16 A; Pulse Ox 100% on ETT vent; jd3 11:45 BP 65 / 39; Pulse 86; Resp 16 A; Pulse Ox 100% on ETT vent; jd3 11:50 BP 63 / 41; Pulse 85; Resp 16 A; Pulse Ox 100% on ETT vent; jd3 12:00 BP 81 / 52; Pulse 92; Resp 16 A; Pulse Ox 100% on ETT vent; jd3 12:05 BP 105 / 82; Pulse 94; Resp 16 A; Pulse Ox 100% on ETT vent; jd3 12:15 BP 108 / 91; Pulse 95; Resp 14 A; Pulse Ox 100% on ETT vent; jd3 12:30 BP 107 / 86; Pulse 96; Resp 16; Pulse Ox 100% ; jl7 12:45 BP 113 / 90; Pulse 96; Resp 16; Pulse Ox 100% ; jl7 13:00 BP 113 / 97; Pulse 98; Resp 16 A; Pulse Ox 100% on 30% FiO2 ETT vent; jl7 13:15 BP 121 / 94; Pulse 99; Resp 14; Pulse Ox 100% ; jl7 13:30 BP 113 / 92; Pulse 98; Resp 14; Pulse Ox 100% ; jl7 13:45 BP 121 / 99; Pulse 98; Resp 14; Pulse Ox 100% ; jl7 14:00 BP 118 / 93; Pulse 103; Resp 14 A; Pulse Ox 100% on 30% FiO2 ETT vent; jl7 14:15 BP 119 / 94; Pulse 98; Resp 15; Pulse Ox 100% ; jl7 14:30 BP 127 / 92; Pulse 100; Resp 14; Pulse Ox 100% ; jl7 14:45 BP 128 / 99; Pulse 100; Resp 14; Temp 99.2(R); Pulse Ox 100% ; jl7 10:21 pt placed on JAYLEN hugger jl7 14:45 JAYLEN Hugger turned off jl7 ED Course: 08:12 Patient arrived in ED. ds1 08:12 Maintain EMS IV. Dressing intact. Good blood return noted. Site clean \\T\\ dry. Gauge \\T\\ sean 3 site: 20 G left AC. 08:14 Loy Ya MD is Attending Physician. eb 08:17 Arm band placed on. EKG completed in triage. Results shown to MD. jd3 08:18 Assisted provider with intubation using 7.5 mm ETT via oral route. ET tube secured at jd3 23cm at the teeth. Set up intubation tray. Intubated by Loy Ya MD Placement verified by CO2 detector w/ + color change, auscultating bilateral breath sounds, CXR, Patient tolerated well. 08:24 Assisted provider with central line placement. Set up central line tray. Triple lumen jd3 line placed in right femoral. Line placed by Loy Ya MD Placement verified by blood return, Dressed with Tegaderm, Blood was collected. Patient tolerated well. 08:27 Patient has correct armband on for positive identification. Bed in low position. mh5 quality assurance monitor body on. Pulse ox on. NIBP on. 08:27 EKG done, by ED staff, reviewed by Loy Ya MD. 5 08:50 Urine Drug Screen Sent. 5 08:50 Amylase, Serum Sent. 5 08:50 Amylase Sent. 5 08:50 Basic Metabolic Panel Sent. mh5 08:50 Blood Culture Adult (2) Sent. mh5 08:50 CBC with Diff Sent. mh5 08:50 CPK Sent. mh5 08:50 Ckmb Sent. mh5 08:50 LFT's Sent. mh5 08:50 Lactate Sent. mh5 08:50 Lipase Sent. mh5 08:50 Procalcitonin Sent. mh5 08:50 Protime (+inr) Sent. mh5 08:50 Ptt, Activated Sent. mh5 08:50 Troponin (emerg Dept Use Only) Sent. mh5 08:51 Urine Microscopic Only Sent. mh5 08:51 Urine collected:. Schofield cath inserted, using sterile technique, 16 Fr., by ED staff, 5 balloon inflated, to gravity drainage, urine specimen collected. 08:55 Triage completed. jd3 08:56 Chest Single View XRAY In Process Unspecified. EDMS 08:58 CT Head Brain wo Cont In Process Unspecified. EDMS 09:05 NGT: inserted 14 Fr. via left nare. verified placement of air over stomach, verified jl7 return of gastric contents, Placement verified by X-ray, to intermittent suction. Returned gastric contents. Patient tolerated well. 09:57 XRAY Chest (1 view) In Process Unspecified. EDMS 09:57 CXR XRAY In Process Unspecified. EDMS 10:00 Mckinley Eller is Primary Nurse. al4 10:16 Yasmin Neumann, RN is Primary Nurse. jl7 10:20 Primary Nurse role handed off by Yasmin Neumann RN jl7 10:20 Jayson Mejia RN is Primary Nurse. jl7 12:11 Leatha Carrillo MD is Hospitalizing Provider. rn 12:15 Assist provider with lumbar puncture: Set up LP tray. Performed by Loy Ya MD CSF jd3 is clear. Puncture site dressed with 4X4s, Procedure was successful. Patient tolerated well. 13:15 Patient admitted, IV remains in place. jd3 20:46 Primary Nurse role handed off by Jayson Mejia, MARINA cs9 22:55 Charity Álvarez is Primary Nurse. tw5 02/08 07:59 Primary Nurse role handed off by Charity Álvarez bd 14:08 Echocardiogram with doppler done by biofuels technology development manager. tc Administered Medications: 02/06 08:12 Drug: Ativan (LORazepam) 2 mg Route: IVP; Site: left antecubital; jd3 08:14 Follow up: Response: No change in condition jl7 08:14 Drug: Ativan (LORazepam) 2 mg Route: IVP; Site: left antecubital; jd3 08:17 Drug: Etomidate 20 mg Route: IVP; Site: left antecubital; jd3 08:20 Follow up: Response: No adverse reaction jl7 08:17 Drug: Succinylcholine 100 mg Route: IVP; Site: left antecubital; jd3 08:25 Follow up: Response: No adverse reaction jl7 08:22 Drug: NS 0.9% (30 ml/kg) 30 ml/kg Route: IV; Rate: bolus; Site: left antecubital; jd3 10:30 Follow up: Response: No adverse reaction; IV Status: Completed infusion; IV Intake: 7 2500ml 08:31 Drug: Propofol 5 mcg/kg/min Route: IV; Rate: calculated rate; Site: left antecubital; jd3 22:56 Follow up: Rate change 20 mcg/kg/min tw5 08:50 Drug: Versed (midazolam) 3 mg {Note: 3 given per verbal order.} Route: IVP; Site: left jd3 antecubital; 10:28 Follow up: Response: No adverse reaction; No change in condition jl7 09:13 Drug: Fosphenytoin 1 grams Route: IVPB; Site: right femoral; jd3 09:30 Follow up: Response: No adverse reaction; IV Status: Completed infusion jl7 09:15 Drug: Rocuronium 50 mg Route: IVP; Site: right femoral; jd3 09:17 Follow up: Response: No adverse reaction; Marked relief of symptoms jl7 10:00 Drug: Dilaudid (HYDROmorphone) 1 mg Route: IVP; Site: right femoral; al4 19:13 Follow up: Response: No adverse reaction; RASS: Alert and Calm (0) jd3 10:01 Drug: Rocephin (cefTRIAXone) 2 grams Route: IV; Rate: calculated rate; Site: right al4 femoral; 10:27 Follow up: Response: No adverse reaction; IV Status: Completed infusion jl7 10:18 Drug: vancoMYCIN 15 mg/kg Route: IVPB; Site: right femoral; al4 10:30 Follow up: Response: No adverse reaction; IV Status: Completed infusion jd3 12:00 Drug: Levophed (norepinephrine) (4 mg/250 mL D5W 4 mcg/min Route: IV; Rate: calculated jd3 rate; Site: right femoral; 13:00 Follow up: Response: No adverse reaction; IV Status: Infusion continued upon admission jd3 14:42 Drug: NS 0.9% 1000 ml Route: IV; Rate: 1 bolus; Site: left antecubital; jd3 15:40 Follow up: Response: No adverse reaction; IV Status: Completed infusion; IV Intake: jd3 1000ml Intake: 10:30 IV: 2500ml; Total: 2500ml. jl7 15:40 IV: 1000ml; Total: 3500ml. jd3 Outcome: 12:12 Decision to Hospitalize by Provider. rn 19:03 Admitted to ER Hold. [facility]. jd3 19:03 Condition: stable 19:03 Instructed on the need for admit. 02/15 20:02 Patient left the ED. mw2 Signatures: Dispatcher [employer] EDMS Cathy Henry Demi ds1 Loy Ya MD MD rn Callis, Tiffany, newspaper inserter EKG Ttc Shivani Irwin 5 Yasmin Neumann RN RN jl7 Jayson Mejia RN RN jd3 Onelia Biggs mw2 Marium Brown Tiffany 5 Shari John 9 Eloisa Kern RN RN 3 Mckinley Eller al4 Corrections: (The following items were deleted from the chart) 12 09:14 08:50 Versed (midazolam) 3 mg IVP in left antecubital jd3 jd3 10:19 09:05 NGT: inserted 16 Fr. other via OG verified placement of air over stomach, to jl7 intermittent suction. Patient tolerated well. jd3 12:16 12:11 Levophed (norepinephrine) (4 mg/250 mL D5W 4 mcg/min IV at calculated rate in jd3 right femoral jd3 19:13 10:26 Response: No adverse reaction jl7 jd3
--- NOTE | 2021-02-06 12:13 | EDPHYS ---
Physician Documentation [facility] Name: Kaleigh Tellez Age: 40 yrs Sex: Female : 1980 Arrival Date: 02/06/2021 Time: 08:12 Bed 27 Private MD: ED Physician Loy Ya HPI: 02/06 08:31 This 40 yrs old Black Female presents to ER via Unassigned with complaints of Seizure. rn 08:31 The patient presents after having a possible seizure episode. Character of seizure(s): rn Loss of consciousness: the patient experienced loss of consciousness, Motor activity: generalized, Incontinence: none, Circulation: the patient did not experience evidence of pulse disturbance. Seizure onset: the onset is not known. Associated injury: The patient did not suffer any apparent associated injury. Current symptoms: decreased level of consciousness. It is unknown whether or not the patient has had similar symptoms in the past. The patient has not recently seen a physician. EMS reports called out for unresponsiveness. Daughter here and states patient was out of it since last night. Patient is known to take pain medication and Ambien that has not prescribed her. No known trauma. No story of illness. Family unable to wake up patient this morning. EMS reports posturing and seizure-like activity the entire time that they have had her. They obtained a line and tried Narcan without response. No other medication given. EMS placed nasal trumpet but was not intubated or being bagged.. [employer]: 09:00 LMP N/A - tested negative UPT jd3 Historical: - Allergies: 08:55 Cycline family; jd3 08:55 HYDRALAZINE; jd3 08:55 Minocycline; jd3 08:55 TETRACYCLINES; jd3 - PMHx: 08:55 C Sections; Hypertension; jd3 - Immunization history:: Adult Immunizations unknown. - Social history:: Smoking status: unknown. - Family history:: not pertinent. - Hospitalizations: : No recent hospitalization is reported. ROS: 08:31 Unable to obtain ROS due to obtunded state. rn Exam: 08:31 Constitutional: This is a well developed, well nourished patient who is unresponsive, rn nasal trumpet in place, with stiff extremities and seizure-like activity Head/Face: Normocephalic, atraumatic. Eyes: Pupils 6 mm, reactive, deviation to the right ENT: Dry mucous membranes Neck: Trachea midline, no masses palpated Cardiovascular: Tachycardic, regular, no pulse deficits Respiratory: Sonorous respirations, nasal trumpet in place Abdomen/GI: Soft, nondistended Skin: Warm, dry MS/ Extremity: Pulses equal, no cyanosis. Neuro: GCS of 3, no response to pain, stiff extremities with decerebrate posturing. 09:57 ECG was reviewed by the Attending Physician. rn Vital Signs: 08:19 BP 148 / 102; Pulse 133; Resp 22 A; Pulse Ox 100% on ETT ambu; jd3 08:22 BP 162 / 97; Pulse 135; Resp 23 A; Pulse Ox 100% on ETT vent; jd3 08:23 Weight 85 kg; ll3 08:31 BP 125 / 82; Pulse 137; Resp 28 A; Pulse Ox 100% on ETT vent; jd3 09:20 BP 100 / 69; Pulse 130; Resp 18 S; Pulse Ox 100% on ETT vent; jd3 09:25 BP 106 / 83; Pulse 132; Resp 16 A; Pulse Ox 100% on ETT vent; jd3 10:21 BP 116 / 82; Pulse 111; Resp 16; Temp 95.2; Pulse Ox 100% ; jl7 10:45 BP 108 / 93; Pulse 105; Resp 16 A; Pulse Ox 100% on ETT vent; al4 11:15 BP 101 / 74; Pulse 104; Resp 16 A; Pulse Ox 100% on ETT vent; jd3 11:30 BP 97 / 75; Pulse 101; Resp 16 A; Pulse Ox 100% on ETT vent; jd3 11:45 BP 65 / 39; Pulse 86; Resp 16 A; Pulse Ox 100% on ETT vent; jd3 11:50 BP 63 / 41; Pulse 85; Resp 16 A; Pulse Ox 100% on ETT vent; jd3 12:00 BP 81 / 52; Pulse 92; Resp 16 A; Pulse Ox 100% on ETT vent; jd3 12:05 BP 105 / 82; Pulse 94; Resp 16 A; Pulse Ox 100% on ETT vent; jd3 12:15 BP 108 / 91; Pulse 95; Resp 14 A; Pulse Ox 100% on ETT vent; jd3 12:30 BP 107 / 86; Pulse 96; Resp 16; Pulse Ox 100% ; jl7 12:45 BP 113 / 90; Pulse 96; Resp 16; Pulse Ox 100% ; jl7 13:00 BP 113 / 97; Pulse 98; Resp 16 A; Pulse Ox 100% on 30% FiO2 ETT vent; jl7 13:15 BP 121 / 94; Pulse 99; Resp 14; Pulse Ox 100% ; jl7 13:30 BP 113 / 92; Pulse 98; Resp 14; Pulse Ox 100% ; jl7 13:45 BP 121 / 99; Pulse 98; Resp 14; Pulse Ox 100% ; jl7 14:00 BP 118 / 93; Pulse 103; Resp 14 A; Pulse Ox 100% on 30% FiO2 ETT vent; jl7 14:15 BP 119 / 94; Pulse 98; Resp 15; Pulse Ox 100% ; jl7 14:30 BP 127 / 92; Pulse 100; Resp 14; Pulse Ox 100% ; jl7 14:45 BP 128 / 99; Pulse 100; Resp 14; Temp 99.2(R); Pulse Ox 100% ; jl7 10:21 pt placed on JAYLEN hugger jl7 14:45 JAYLEN Hugger turned off jl7 Procedures: 08:28 Intubation: Ventilated with 100% NRB prior to procedure. O2 saturation prior to engraver ornamental design was 97 %. Intubated orally using # 4 Barbara blade with 7.5 mm ETT. was successful on first attempt. Cricoid pressure applied during procedure. Tube secured with ETT herrera at right side of mouth measured 23 cm at teeth. Placement verified by CO2 detector with (+) color change, auscultating bilateral breath sounds, O2 saturation after procedure was 100 %. Patient tolerated well. Central Line: the site was prepped with Betadine, in sterile fashion, a triple lumen catheter was inserted, in the right femoral vein, in 1 attempts. placement was verified, by blood return, the site was dressed with 4X4s, Tegaderm, using sterile technique, the patient tolerated the procedure, well. 09:33 Lumbar Puncture: Patient placed in left lateral decubitus position. Prepped with rn Betadine. Draped using sterile technique. Collected 8 ml's of clear fluid. Sample sent to lab. Puncture site dressed with band aid, Patient tolerated well. MDM: 08:27 Patient medically screened. rn 10:33 ED course: Family of patient came back in and states patient also known to chronically rn use kratom. Kratom could explain the hepatotoxicity and seizures that we are seeing. Elevated white blood cell count, CSF so far looks negative. Drug screen negative but kratom would not pop up and that his drug screen. Antibiotics administered given elevated white blood cell count but could just be secondary to either withdrawal or drug intoxication and seizures.. 10:45 ED course: Pt no longer with seizure activity. Vital signs have improved. Seemed to rn coincide with the fosphenytoin administration.. 12:10 Differential diagnosis: cerebral vascular accident, drug overdose, cardiac arrhythmia, rn seizure. Data reviewed: vital signs, nurses notes, lab test result(s), EKG, radiologic studies, CT scan, plain films, and as a result, I will admit patient. Counseling: I had a detailed discussion with the patient and/or guardian regarding: the historical points, exam findings, and any diagnostic results supporting the discharge/admit diagnosis, lab results, radiology results, the need for further work-up and treatment in the hospital. Response to treatment: the patient's symptoms have mildly improved after treatment, and as a result, I will admit patient. Admission orders: after a detailed discussion of the patient's condition and case, the admit orders are written by me. 12 08:23 Order name: Amylase, Serum ll3 12 08:23 Order name: Basic Metabolic Panel; Complete Time: 12:04 ll3 12 08:23 Order name: Blood Culture Adult (2) ll3 12 08:23 Order name: CBC with Diff; Complete Time: 09:34 ll3 02/06 08:23 Order name: CPK; Complete Time: 12:04 ll3 12 08:23 Order name: Ckmb; Complete Time: 12:04 ll3 1204 08:23 Order name: LFT's; Complete Time: 12:04 ll3 12 08:23 Order name: Lactate; Complete Time: 09:34 ll3 12 08:23 Order name: Lipase; Complete Time: 12:04 ll3 12 08:23 Order name: Procalcitonin; Complete Time: 09:34 ll3 12 08:23 Order name: Protime (+inr); Complete Time: 09:34 ll3 02/06 08:23 Order name: Ptt, Activated; Complete Time: 09:34 ll3 12/ 08:23 Order name: Troponin (emerg Dept Use Only); Complete Time: 12:04 ll3 12/04 08:23 Order name: Urine Microscopic Only; Complete Time: 10:10 ll3 / 08:24 Order name: Amylase; Complete Time: 12:04 EDMS 12 08:27 Order name: Urine Drug Screen; Complete Time: 10:10 rn 12/04 08:28 Order name: SARS-COV-2 RT PCR (Document "Date of Onset" if Symptomatic); Complete Time: rn 10:10 02/06 08:35 Order name: ABG; Complete Time: 10:30 eb 12/04 08:50 Order name: Urine Dipstick-Ancillary; Complete Time: 08:50 EDMS 02/06 08:56 Order name: Urine --Ancillary (enter results); Complete Time: 09:34 eb 12/04 09:03 Order name: Manual Differential; Complete Time: 09:34 EDMS 02/06 09:33 Order name: Csf Culture; Complete Time: 02:44 rn 04 09:33 Order name: Fluid Cell Count,Body; Complete Time: 10:35 rn /04 09:33 Order name: Spinal Fluid Profile; Complete Time: 12:04 rn 12/04 09:35 Order name: LAB Add On eb 02/06 09:36 Order name: Acetaminophen Level; Complete Time: 12:04 EDMS 04 09:40 Order name: Urine Culture; Complete Time: 02:44 EDMS 02/06 12:14 Order name: Glucose, Ancillary Testing EDFL 02/06 12:33 Order name: Lactate Sepsis 2 HR Follow-up; Complete Time: 07:08 EDMS 02/06 13:26 Order name: CKMB Creatine Kinase MB; Complete Time: 07:08 EDMS 02/06 13:26 Order name: Osmolality, Serum; Complete Time: 07:08 EDMS 02/06 13:29 Order name: Basic Metabolic Panel; Complete Time: 07:08 EDMS 02/06 13:29 Order name: Alcohol Serum/Plasma; Complete Time: 07:08 EDMS 02/06 13:29 Order name: Methylmalonic Acid; Complete Time: 02:44 EDMS 02/06 13:52 Order name: Ur Protein; Complete Time: 02:44 EDMS 02/06 14:00 Order name: Comprehensive Metabolic Panel EDMS 02/06 14:00 Order name: Comprehensive Metabolic Panel; Complete Time: 07:08 EDMS 02/06 14:00 Order name: Creatine Phosphokinase EDMS 02/06 14:00 Order name: Creatine Phosphokinase; Complete Time: 07:08 EDMS 02/06 14:00 Order name: Creatine Phosphokinase EDMS 02/06 14:00 Order name: Creatine Phosphokinase; Complete Time: 02:44 EDMS 02/06 14:00 Order name: Lactate EDMS 02/06 14:00 Order name: Lactate; Complete Time: 07:08 EDMS 02/06 14:00 Order name: Lipase EDMS 02/06 14:00 Order name: Lipase; Complete Time: 07:08 EDMS 02/06 14:00 Order name: Magnesium EDMS 02/06 14:00 Order name: Magnesium; Complete Time: 07:08 EDMS 02/06 14:00 Order name: CBC with Automated Diff EDMS 02/06 14:00 Order name: CBC with Automated Diff; Complete Time: 07:08 EDMS 02/06 14:01 Order name: NT PRO-BNP EDMS 02/06 14:01 Order name: NT PRO-BNP; Complete Time: 07:08 EDMS 02/06 14:01 Order name: Phosphorus EDMS 02/06 14:01 Order name: Phosphorus; Complete Time: 07:08 EDMS 02/06 14:01 Order name: Protime (+INR) EDMS 02/06 14:01 Order name: Protime (+INR); Complete Time: 07:08 EDMS 02/06 14:01 Order name: PTT, Activated Partial Thromb EDMS 02/06 14:01 Order name: PTT, Activated Partial Thromb; Complete Time: 07:08 EDMS 02/06 14:01 Order name: Troponin I EDMS 02/06 14:01 Order name: Troponin I; Complete Time: 07:08 EDMS 02/06 14:01 Order name: Troponin I EDMS 02/06 14:01 Order name: Troponin I; Complete Time: 02:44 EDMS 02/06 14:02 Order name: Uric Acid; Complete Time: 07:08 EDMS 02/07 05:20 Order name: ABG Arterial Blood Gas; Complete Time: 07:08 EDMS 02/07 07:31 Order name: Gram Stain--Aerobic Bottle EDMS 02/07 16:22 Order name: Glucose, Ancillary Testing; Complete Time: 02:44 EDMS 02/07 23:30 Order name: Glucose, Ancillary Testing; Complete Time: 02:44 EDMS 02/08 04:55 Order name: CBC with Automated Diff; Complete Time: 02:44 EDMS 02/08 05:08 Order name: Lactate; Complete Time: 02:44 EDMS 02/08 05:47 Order name: Procalcitonin; Complete Time: 02:44 EDMS 02/08 06:20 Order name: Comprehensive Metabolic Panel; Complete Time: 02:44 EDMS 02/08 06:20 Order name: Phosphorus; Complete Time: 02:44 EDMS 02/08 06:20 Order name: Creatine Phosphokinase; Complete Time: 02:44 EDMS 02/08 06:20 Order name: Troponin I; Complete Time: 02:44 EDMS 02/08 06:20 Order name: NT PRO-BNP; Complete Time: 02:44 EDMS 02/08 06:20 Order name: Magnesium; Complete Time: 02:44 EDMS 02/08 09:49 Order name: Vancomycin Level Trough; Complete Time: 02:44 EDMS 02/08 13:30 Order name: Glucose, Ancillary Testing; Complete Time: 02:44 EDMS 02/08 15:33 Order name: Phenytoin (Dilantin) Level; Complete Time: 02:44 EDMS 02/08 18:20 Order name: Glucose, Ancillary Testing; Complete Time: 02:44 EDMS 02/08 21:29 Order name: Potassium; Complete Time: 02:44 EDMS 02/08 23:53 Order name: Glucose, Ancillary Testing; Complete Time: 02:44 EDMS 02/09 05:24 Order name: Glucose, Ancillary Testing; Complete Time: 02:44 EDMS 02/09 05:50 Order name: CBC with Automated Diff; Complete Time: 02:44 EDMS 02/09 05:57 Order name: Comprehensive Metabolic Panel; Complete Time: 02:44 EDMS 02/09 05:57 Order name: Phosphorus; Complete Time: 02:44 EDMS 02/09 05:57 Order name: Magnesium; Complete Time: 02:44 EDMS 02/09 06:00 Order name: ABG Arterial Blood Gas; Complete Time: 02:44 EDMS 02/09 13:29 Order name: Hemoglobin; Complete Time: 02:44 EDMS 02/09 13:29 Order name: Hematocrit; Complete Time: 02:44 EDMS 02/09 13:30 Order name: Glucose, Ancillary Testing; Complete Time: 02:44 EDMS 02/09 18:29 Order name: Glucose, Ancillary Testing; Complete Time: 02:44 EDMS 02/10 00:50 Order name: Glucose, Ancillary Testing; Complete Time: 02:44 EDMS 02/10 02:08 Order name: UR POTASSIUM; Complete Time: 02:44 EDMS 02/10 02:08 Order name: UR SODIUM; Complete Time: 02:44 EDMS 02/10 02:12 Order name: Osmolality, Urine; Complete Time: 02:44 EDMS 02/10 04:58 Order name: CBC with Automated Diff; Complete Time: 02:44 EDMS 02/10 05:12 Order name: Miscellaneous Test Lab EDMS 02/10 05:20 Order name: Comprehensive Metabolic Panel; Complete Time: 02:44 EDMS 02/10 05:20 Order name: Renal Panel; Complete Time: 02:44 EDMS 02/10 05:20 Order name: Magnesium; Complete Time: 02:44 EDMS 02/10 05:20 Order name: Thyroid Stimulating Hormone; Complete Time: 02:44 EDMS 02/10 05:54 Order name: Osmolality, Serum; Complete Time: 02:44 EDMS 02/10 10:48 Order name: Blood Culture EDMS 02/10 12:23 Order name: Glucose, Ancillary Testing; Complete Time: 02:44 EDMS 02/10 15:22 Order name: Osmolality, Serum; Complete Time: 02:44 EDMS 02/10 19:00 Order name: Glucose, Ancillary Testing; Complete Time: 02:44 EDMS 02/10 22:51 Order name: KEPPRA (LEVETIRACETAM); Complete Time: 02:44 EDMS 02/11 01:09 Order name: Glucose, Ancillary Testing; Complete Time: 02:44 EDMS 02/11 04:33 Order name: CBC with Automated Diff EDMS 02/11 04:49 Order name: Comprehensive Metabolic Panel EDMS 02/11 04:49 Order name: Renal Panel EDMS 02/11 04:49 Order name: Magnesium EDMS 02/11 15:04 Order name: Osmolality, Serum EDMS 02/12 06:08 Order name: Renal Panel EDMS 02/12 06:08 Order name: Magnesium EDMS 02/12 16:13 Order name: Osmolality, Serum EDMS 02/13 05:58 Order name: Renal Panel EDMS 02/13 05:58 Order name: Magnesium EDMS 02/13 06:21 Order name: Protein Electo w/M Armani Serum EDMS 02/13 15:15 Order name: Osmolality, Serum EDMS 02/13 15:53 Order name: Aldosterone EDMS 02/06 08:23 Order name: Chest Single View XRAY; Complete Time: 10:30 ll3 02/06 08:23 Order name: Accucheck; Complete Time: 08:28 ll3 02/06 08:23 Order name: Cardiac monitoring; Complete Time: 08:29 ll3 02/06 08:23 Order name: EKG - Nurse/Tech; Complete Time: 08:28 ll3 02/06 08:23 Order name: IV Saline Lock - Large Bore; Complete Time: 08:28 ll3 02/06 08:23 Order name: Labs collected and sent; Complete Time: 08:50 ll3 02/06 08:23 Order name: O2 Per Protocol; Complete Time: 08:50 ll3 02/06 08:23 Order name: O2 Sat Monitoring; Complete Time: 08:50 ll3 02/06 08:23 Order name: Urine Dipstick-Ancillary (obtain specimen); Complete Time: 08:50 ll3 02/06 08:27 Order name: CT Head Brain wo Cont; Complete Time: 09:34 rn 02/06 09:33 Order name: LP Consents; Complete Time: 09:35 rn 02/06 09:33 Order name: LP Setup; Complete Time: 09:35 rn 02/06 09:41 Order name: XRAY Chest (1 view); Complete Time: 10:35 rn 02/06 09:51 Order name: CXR XRAY; Complete Time: 10:35 eb 02/06 14:00 Order name: CONS Physician Consult EDMS 02/06 14:00 Order name: CONS Physician Consult EDMS 02/06 14:00 Order name: CONS Physician Consult EDMS 02/06 14:00 Order name: NPO EDMS 02/06 14:02 Order name: Head Brain Wo Cont EDMS 02/06 14:02 Order name: Head Brain Wo Cont; Complete Time: 02:44 EDMS 02/06 14:02 Order name: Chest Single View; Complete Time: 02:44 EDMS 02/07 12:03 Order name: XRAY Chest (1 view) jl7 02/07 13:02 Order name: RAD; Complete Time: 02:44 EDMS 02/07 13:06 Order name: US; Complete Time: 02:44 EDMS 02/07 13:06 Order name: US; Complete Time: 02:44 EDMS 02/08 09:20 Order name: RAD; Complete Time: 02:44 EDMS 02/09 07:43 Order name: RAD; Complete Time: 02:44 EDMS 02/09 08:27 Order name: RAD; Complete Time: 02:44 EDMS 02/09 09:32 Order name: RAD; Complete Time: 02:44 EDMS 02/09 18:54 Order name: RAD; Complete Time: 02:44 EDMS 02/09 21:02 Order name: CT; Complete Time: 02:44 EDMS 02/10 08:20 Order name: RAD; Complete Time: 02:44 EDMS 02/10 08:21 Order name: RAD; Complete Time: 02:44 EDMS 02/11 14:16 Order name: RAD EDMS 02/11 16:57 Order name: MRI EDMS 02/11 17:00 Order name: MRI EDMS 02/12 08:08 Order name: MRI EDMS 02/13 18:50 Order name: CT EDMS 02/14 05:36 Order name: Renal Panel EDMS 02/14 05:36 Order name: Magnesium EDMS 02/15 04:51 Order name: Basic Metabolic Panel EDMS 02/15 04:51 Order name: Magnesium EDMS EC:57 Rate is 133 beats/min. Rhythm is regular. QRS [place] is Normal. NM interval is normal. rn QRS interval is normal. QT interval is normal. No Q waves. T waves are Normal. No ST changes noted. Clinical impression: Sinus tachycardia and PVCs. Interpreted by me. Reviewed by me. Administered Medications: 08:12 Drug: Ativan (LORazepam) 2 mg Route: IVP; Site: left antecubital; jd3 08:14 Follow up: Response: No change in condition 7 08:14 Drug: Ativan (LORazepam) 2 mg Route: IVP; Site: left antecubital; jd3 08:17 Drug: Etomidate 20 mg Route: IVP; Site: left antecubital; jd3 08:20 Follow up: Response: No adverse reaction jl7 08:17 Drug: Succinylcholine 100 mg Route: IVP; Site: left antecubital; jd3 08:25 Follow up: Response: No adverse reaction jl7 08:22 Drug: NS 0.9% (30 ml/kg) 30 ml/kg Route: IV; Rate: bolus; Site: left antecubital; jd3 10:30 Follow up: Response: No adverse reaction; IV Status: Completed infusion; IV Intake: jl7 2500ml 08:31 Drug: Propofol 5 mcg/kg/min Route: IV; Rate: calculated rate; Site: left antecubital; jd3 22:56 Follow up: Rate change 20 mcg/kg/min tw5 08:50 Drug: Versed (midazolam) 3 mg {Note: 3 given per verbal order.} Route: IVP; Site: left jd3 antecubital; 10:28 Follow up: Response: No adverse reaction; No change in condition jl7 09:13 Drug: Fosphenytoin 1 grams Route: IVPB; Site: right femoral; jd3 09:30 Follow up: Response: No adverse reaction; IV Status: Completed infusion jl7 09:15 Drug: Rocuronium 50 mg Route: IVP; Site: right femoral; jd3 09:17 Follow up: Response: No adverse reaction; Marked relief of symptoms jl7 10:00 Drug: Dilaudid (HYDROmorphone) 1 mg Route: IVP; Site: right femoral; al4 19:13 Follow up: Response: No adverse reaction; RASS: Alert and Calm (0) jd3 10:01 Drug: Rocephin (cefTRIAXone) 2 grams Route: IV; Rate: calculated rate; Site: right al4 femoral; 10:27 Follow up: Response: No adverse reaction; IV Status: Completed infusion jl7 10:18 Drug: vancoMYCIN 15 mg/kg Route: IVPB; Site: right femoral; al4 10:30 Follow up: Response: No adverse reaction; IV Status: Completed infusion jd3 12:00 Drug: Levophed (norepinephrine) (4 mg/250 mL D5W 4 mcg/min Route: IV; Rate: calculated jd3 rate; Site: right femoral; 13:00 Follow up: Response: No adverse reaction; IV Status: Infusion continued upon admission jd3 14:42 Drug: NS 0.9% 1000 ml Route: IV; Rate: 1 bolus; Site: left antecubital; jd3 15:40 Follow up: Response: No adverse reaction; IV Status: Completed infusion; IV Intake: jd3 1000ml Disposition Summary: 02/06/21 12:12 Hospitalization Ordered Hospitalization Status: Inpatient Admission rn Provider: Leatha Carrillo rn Condition: Fair rn Problem: new rn Symptoms: have improved rn Bed/Room Type: Standard rn Location: Telemetry/MedSurg (Inpatient)(02/15/21 16:51) 1 Room Assignment: [facility](02/15/21 16:51) [facility] Diagnosis - Epileptic seizures related to external causes, not intractable, with status rn epilepticus - Altered mental status, unspecified rn - Acute kidney failure, unspecified rn Forms: - Medication Reconciliation Form rn - SBAR form athletic training internship time excluding procedures: 12:10 Critical care time: Bedside Care: 55 minutes, Consultation: 5 minutes, Family rn Intervention: 15 minutes. Total time: 75 minutes Signatures: Dispatcher [employer] EDMS Loy Ya MD MD rn Davies, Jonathon RN RN jd3 Robert Archer RN RN Eloisa Garcia, RN RN ll3 Mckinley Eller Jahala RN jl7 Charity Álvarez tw5 Corrections: (The following items were deleted from the chart) 09:32 08:28 URINE DRUG SCREEN+CHEM UR.LAB.BRZ ordered. EDMS EDMS 13:50 13:29 Urine Creatinine, 24 Hour ordered. EDMS EDMS 13:50 13:29 Urine Protein, 24 HR ordered. EDMS EDMS 13:57 13:26 Uric Acid ordered. EDMS EDMS 15:18 12:12 Intensive Care Unit rn ja1 15:18 12:12 rn barby1 15:18 15:18 ja1 ja1 15:19 15:18 HLD3 ja1 ja1 02/15 16:51 1204 15:18 [facility] ER HOLD ja1 ja1 02/15 16:51 1204 15:19 ERHOLD- [place] [id number]
--- NOTE | 2021-02-06 13:00 | P.HP ---
Certification for Inpatient Patient admitted to: Inpatient With expected LOS: >2 Midnights Practitioner: I am a practitioner with admitting privileges, knowledge of patient current condition, hospital course, and medical plan of care. Services: Services provided to patient in accordance with Admission requirements found in Title 42 Section 412.3 of the Code of Federal Regulations Patient History Date of Service: 02/06/21 Reason for admission: Status epilepticus History of Present Illness: Patient is a 40yo who was admitted to the hospital with persistent seizures. Patient has a recent history of CBD Kratom usage. Last night, it was noted that she was very tired and not really acting appropriately. The family was concerned but let her sleep on the couch. They woke up to see her seizing while she was on the couch. She was unresponsive and EMS was notified. She has no history of seizure disorder. EMS brought her into the hospital and she was intubated as she was having numerous seizures which were uncontrolled. She was given Keppra and fosphenytoin. Her seizures finally stopped. Currently, she is on a propofol drip. She is also slightly hypotensive. She is severely acidotic as well as acute renal and liver failure. Patient be admitted for further evaluation. Allergies minocycline Allergy (Unverified 10/13/16 12:36) Unknown Tetracyclines Allergy (Verified 02/06/21 16:02) Anaphylaxis HYDRALAZINE Allergy (Uncoded 10/13/16 12:36) Unknown - Past Medical/Surgical History Past Medical History: Unable to obtain Past Surgical History: Unable to obtain - Family History Father Family History: Reviewed- Non-Contributory - Social History Smoking Status: Former smoker Alcohol use: No CD- Drugs: No Review of Systems is unable to be obtained Physical Examination - Vital Signs Temperature: 98 F Blood Pressure: 140/80 Pulse: 80 Respirations: 18 Pulse Ox (%): 95 - Physical Exam General: Other (intubated and sedated) HEENT: Atraumatic, PERRLA, Mucous membr. moist/pink, EOMI, Sclerae nonicteric Neck: Supple, 2+ carotid pulse no bruit, No LAD, Without JVD or thyroid abnormality Respiratory: Clear to auscultation bilaterally, Normal air movement Cardiovascular: Regular rate/rhythm, Normal S1 S2, No murmurs Gastrointestinal: Normal bowel sounds, Soft and benign, Non-distended, No tenderness Musculoskeletal: No clubbing, No swelling, No tenderness Integumentary: No rashes Neurological: Normal tone, Sensation intact, Abnormal gait, Abnormal speech, Abnormal strength, Abnormal cranial nerve function, Abnormal affect Lymphatics: No axilla or inguinal lymphadenopathy - Studies Laboratory Data (last 24 hrs) 02/06/21 08:33: PT 15.3 H, INR 1.33, APTT 31.4 02/06/21 08:33: WBC 53.20 H*, Hgb 12.7, Hct 42.4, Plt Count 372 02/06/21 08:33: Sodium 145, Potassium 3.3 L, BUN 32 H, Creatinine 2.51 H, Glucose 158 H, Total Bilirubin 0.2, AST 1312 H*, ALT 1071 H*, Alkaline Phosphatase 288 H, Amylase 807 H*, Lipase 492 H Microbiology Data (last 24 hrs): 02/06/21 09:47 Cerebral Spinal Fluid Gram Stain - Final Assessment & Plan - Problems (Diagnosis) (1) Status epilepticus Current Visit: Yes Status: Acute (2) Acute respiratory failure Current Visit: Yes Status: Acute (3) Elevated LFTs Current Visit: Yes Status: Acute (4) Acute renal insufficiency Current Visit: Yes Status: Acute (5) Elevated troponin Current Visit: Yes Status: Acute (6) Elevated CPK Current Visit: Yes Status: Acute - Plan 1. Anti epileptics 2. Continue with mechanical ventilation 3. Neurology and Pulmonary consultation 4. Aggressive IV hydration with bicarb drip 5. Monitor acidosis 6. Wean off Levophed 7. Continue with propofol drip 8. Repeat CT in the morning 9. Nephrology consultation appreciated 10. Spoke with Cardiology regarding elevated troponin which is likely related to status epilepticus 11. GI and DVT prophylaxis - Advance Directives Does patient have a Living Will: No Does patient have a Durable POA for Healthcare: No
[2021-02-06] MEDS ORDERED: ALBUTEROL 2.5 MG/3 ML NEB SOL NEB PRN (13:42)
[2021-02-06] MEDS ORDERED: IPRATROPIUM BROM 0.5MG/2.5ML NEB PRN (13:42)
[2021-02-06] MEDS ORDERED: ACETAMINOPHEN 500 MG TAB PO PRN (13:50)
[2021-02-06] MEDS ORDERED: ONDANSETRON 4 MG/2 ML VIAL IV PRN (13:50)
[2021-02-06] MEDS ORDERED: D5W 1,000 ML with NA BICARB 8.4% 100 MEQ IV SCH ×2 (14:00)
[2021-02-06] MEDS ORDERED: NACHLORIDE 0.45% 1,000 ML with NA BICARB 8.4% 75 MEQ IV SCH ×2 (14:00)
[2021-02-06 14:20] LABS: Potassium 3.9 mmol/L (3.5-5.1); Uric Acid 9.1 mg/dL (2.6-6.0)
[2021-02-06] MEDS ORDERED: NOREPINEPHRINE 4 MG in D5W 250 ML IV SCH (16:00)
[2021-02-06] MEDS: levETIRAcetam 1,000 MG in NA CHLORIDE 0.9% 100 ML IV SCH (16:10)
--- NOTE | 2021-02-06 16:43 | PN ---
Date of Progress Note: 02/06/2021 Reason For Consultation: Elevated BUN and creatinine, acidosis, electrolyte imbalance. History Of Present Illness: All the information has been obtained from the record as patient being intubated, also secondary to altered mental status and seizure. History Of Present Illness: This is 40-year-old female with significant past medical history negative apparently. The patient approached to the hospital because found with seizure. Upon arrival to the hospital, the patient had altered mental status. The patient found to have severe leukocytosis and elevated BUN and creatinine, creatinine 2.5, GFR 26. Reviewing the record couple of days ago, the patient was in the ER last month and at that time, on December 23, creatinine 0.7, normal GFR. This time patient had a creatinine 2.5, elevation in AST, ALT with severe acidosis. No major elevation in CK. The patient had a bicarb of 13. Apparently, the patient had been taking CBD with Kratom. No other history can be obtained. Has no family by bedside. Past Medical History: As above. Allergies: ALLERGIES TO MINOCYCLINE, HYDRALAZINE. Past Surgical History: None obtainable. Family History: None obtainable. Review of Systems: None obtainable. Social History: Active smoker, active drug abuse. Occasional alcohol. Physical Examination: Vital Signs: When I saw the patient; the patient on vent. Blood pressure 140/80, pulse of 80, afebrile. Chest: Clear to auscultation. Heart: S1, S2. Regular. Abdomen: Soft, nontender. Extremities: No edema. Neuro: The patient sedated, on vent. Pupil equal, reactive. Laboratory Data: Back in December; sodium 138, creatinine 0.7, GFR above 90. H and H 12.5/37. On this admission lab; WBC 53.2, H and H 12.7/42, sodium 145, potassium 3.3, bicarb 13, chloride 108, anion gap is 24, BUN 32, creatinine 2.5, GFR 26, calcium 8.2, albumin is 3.8, AST 1312, ALT 1071. Alkaline phosphatase 288, CK 386. ABG; pH 7.22, CO2 34, O2 154, base access -12. INR 1.3. Lactic acid 14.7. Urinalysis; +3 blood, PC ratio pending. Urine drug screen was negative. Alcohol level was 0. Tylenol less than 2. LP was negative for WBC, glucose 179, protein 39. Current Medication: The patient on ceftriaxone, vancomycin, breathing treatment, Keppra. Assessment And Plan: Acute kidney injury, unknown etiology, possible toxic acute tubular necrosis, questionable with the presence of acidosis, altered mental status. No thrombocytopenia, to rule out any intoxication. I am going to go ahead and send for urine osmolality and to calculate any osmolar gap and we will try to maintain better volume control. We will bolus the patient with normal saline and we will follow up. 1. Acidosis, high anion gap with intoxication and elevation in LFT. We will need to rule out any ethylene glycol. We going to go ahead and send for a serum osmolality and we will follow up if there is an osmolar gap. The patient is going to need urgent dialysis. We will follow up lab. I am going to start the patient on bicarb drip. 2. Hypertension, currently blood pressure maintained good. We will continue fluid resuscitation and we will follow up. 3. Intoxication secondary to CBD. We will follow up toxicology evaluation as above. 4. Hypokalemia, we will supplement. 5. Altered mental status, LP negative, high anion gap, to rule out any ethylene glycol. Alcohol level within normal limits. We will follow up osmolar gap and we will follow up. time spend exam the patient face to face , placing order , reviewing the data of lab and radiology , discussing with the staff including nusing , discussing with other kurtz member including hospitalist and other eyewear consultant 65 min CHAY Voice ID: [id number] Report ID: [id number] SHANTANU
[2021-02-06] MEDS ORDERED: FOSPHENYTOIN PE 100 MG/2 ML VIAL ONE (17:40)
[2021-02-06] MEDS: FOSPHENYTOIN PE 100 MG/2 ML VIAL IV SCH (17:47)
[2021-02-06] MEDS: CEFTRIAXONE 1,000 MG in NA CHLORIDE 0.9% 50 ML IVPB SCH (21:00)
[2021-02-06] MEDS ORDERED: NA CHLORIDE 0.9% 50 ML ONE (22:38)
[2021-02-06] MEDS ORDERED: propofoL 1,000 MG/100 ML VIAL IV SCH (23:45)
[2021-02-07] MEDS: propofoL 1,000 MG/100 ML VIAL IV PRN ×3 (01:41→22:05)
[2021-02-07] MEDS ORDERED: LEVETIRACETAM 500 MG/5 ML VIAL IV ONE (04:13)
[2021-02-07] MEDS ORDERED: FOSPHENYTOIN PE 100 MG/2 ML VIAL ONE ×4 (04:13→23:07)
[2021-02-07] MEDS ORDERED: NA CHLORIDE 0.9% 200 ML ONE (04:17)
[2021-02-07] MEDS: levETIRAcetam 1,000 MG in NA CHLORIDE 0.9% 100 ML IV SCH ×2 (04:29→15:00)
[2021-02-07] MEDS: FOSPHENYTOIN PE 100 MG/2 ML VIAL IV SCH ×3 (05:14→17:00)
[2021-02-07 05:17] LABS: Absolute Lymphocytes (CBC) 2.1 K/uL (0.7-4.9); Basophils % 0.2 % (0-1.3); Hematocrit 29.8 % (36.0-45.0); MPV 7.3 fL (7.6-11.3); RBC Red Blood Cell Count 3.32 M/uL (3.86-4.86)
[2021-02-07 05:18] LABS: Blood Gas Oxyhemoglobin 95.8 % (94-97); Blood O2 Saturation 98.2 % (92-98.5)
[2021-02-07 05:24] LABS: Protime INR 1.31
[2021-02-07] MEDS ORDERED: propofoL 1,000 MG/100 ML VIAL IV ONE ×5 (05:29→21:55)
[2021-02-07 05:59] LABS: Albumin 2.6 g/dL (3.4-5.0); Bilirubin Total 0.2 mg/dL (0.2-1.0); Magnesium 2.1 mg/dL (1.8-2.4); Phosphorus 1.8 mg/dL (2.5-4.9); Potassium 3.1 mmol/L (3.5-5.1); Protein, Total 5.8 g/dL (6.4-8.2)
[2021-02-07 06:06] LABS: Troponin I 14.5 ng/mL (0.0-0.045)
[2021-02-07] MEDS ORDERED: HYDROMORPHONE HCL 1 MG/ML INJ IV ONE ×2 (07:20→23:04)
[2021-02-07] MEDS ORDERED: HYDROMORPHONE HCL 1 MG/ML INJ ONE ×2 (07:28→23:06)
--- NOTE | 2021-02-07 07:56 | RAD REPORT ---
EXAM DESCRIPTION: RAD - Chest Single View - 02/07/2021 6:23 am CLINICAL HISTORY: pneumonia COMPARISON: February 06 TECHNIQUE: AP portable chest image was obtained 02/07/2021 6:23 am in supine position. FINDINGS: Endotracheal tube tip is top of the aortic arch 3.5 cm above the lexus, good position. NG tube extends well into the stomach. Lung volumes remain low. No new or progressive lung parenchymal process. Minimal left base haziness remains. Heart and vasculature are normal. No measurable pleural effusion and no pneumothorax. No acute bony abnormality seen. No acute aortic findings suspected. IMPRESSION: ET tube remains in good position. NG tube is now in good position midportion of the stom ach. Minimal haziness in the left lung base remains. No new or progressive lung parenchymal process.
[2021-02-07] MEDS: ENOXAPARIN 40 MG/0.4 ML SQ SCH (09:00)
[2021-02-07] MEDS: CEFTRIAXONE 1,000 MG in NA CHLORIDE 0.9% 50 ML IVPB SCH ×2 (09:00→19:59)
[2021-02-07] MEDS ORDERED: Nicardipine/NS 25 MG/250 ML KIT IV ONE ×2 (09:09→17:22)
[2021-02-07] MEDS ORDERED: CEFTRIAXONE 1000 MG/VIAL ONE ×2 (09:09→19:57)
[2021-02-07] MEDS ORDERED: ENOXAPARIN 40 MG/0.4 ML SQ ONE (09:09)
[2021-02-07] MEDS ORDERED: NA CHLORIDE 0.9% 50 ML ONE ×2 (09:10→19:57)
[2021-02-07] MEDS ORDERED: NA CHLORIDE 0.9% 0 ML ONE (09:40)
[2021-02-07] MEDS ORDERED: dilTIAZem HCL 25 MG/5 ML VIAL IV ONE (09:40)
[2021-02-07] MEDS: VANCOMYCIN 1.5 GM in NA CHLORIDE 0.9% 500 ML IVPB SCH (10:00)
[2021-02-07] MEDS ORDERED: ASPIRIN EC 81 MG TAB PO ONE (10:13)
[2021-02-07] MEDS ORDERED: CLOPIDOGREL 75 MG TABLET PO ONE (10:13)
[2021-02-07] MEDS ORDERED: FENTANYL CITR 100 MCG/2 ML ONE ×2 (10:25→19:29)
[2021-02-07] MEDS: FENTANYL CITR 100 MCG/2 ML IV PRN ×3 (10:30→20:45)
[2021-02-07] MEDS ORDERED: Nicardipine in Saline, Iso-Osm 20 MG/200 ML IV.SOLN. IV SCH (11:00)
[2021-02-07] MEDS ORDERED: D5W 1,000 ML IV SCH (11:00)
[2021-02-07] MEDS ORDERED: ASPIRIN 81 MG CHEWABLE TABLET ONE (11:19)
[2021-02-07] MEDS ORDERED: CLOPIDOGREL 75 MG TABLET ONE (11:19)
[2021-02-07] MEDS ORDERED: D5W 1,000 ML IV ONE (11:19)
[2021-02-07] MEDS ORDERED: POTASSIUM 25 MEQ EFFERV TAB ONE (12:06)
[2021-02-07] MEDS ORDERED: LORazepam 2 MG/ML VIAL IV ONE (12:10)
[2021-02-07] MEDS ORDERED: LORazepam 2 MG/ML VIAL ONE ×2 (12:15→21:55)
--- NOTE | 2021-02-07 13:01 | RAD REPORT ---
EXAM DESCRIPTION: RAD - Chest Single View - 02/07/2021 12:39 pm CLINICAL HISTORY: NGT COMPARISON: February 07 TECHNIQUE: AP portable chest image was obtained 02/07/2021 12:39 pm . FINDINGS: NG/ OG tube has been placed or repositioned. Side port and tip of the tube are in the mid and distal stomach, respectively. ET tube tip is T4 level approximately 4.5 cm above the lexus. No new or progressive lung parenchymal finding. Heart and vasculature are normal. No measurable pleur al effusion and no pneumothorax. No acute bony abnormality seen. No acute aortic findings suspected. IMPRESSION: NG/OG tube is in good position mid to distal stomach Remainder the chest is stable from earlier imaging.
--- NOTE | 2021-02-07 13:05 | RAD REPORT ---
EXAM DESCRIPTION: - CP - 02/07/2021 12:50 pm CLINICAL HISTORY: CVA COMPARISON: No comparisons TECHNIQUE: Real-time sonographic evaluation of bilateral carotid and vertebral systems was performed . Che scale and Doppler interrogation were performed with waveform tracing bilaterally. FINDINGS: Normal high resistance waveforms are noted in both external carotid arteries. The common c arotid arteries and internal carotid arteries show normal low resistance waveforms. No significant plaque formation is seen. Peak systolic and end diastolic velocity values and the ICA/ CCA ratios are in the non-hemodynamically significant range. Antegrade flow seen in both vertebral arteries. Velocity values and ratios were recorded and are retained in the patient's imaging records. IMPRESSION: No significant atherosclerotic changes noted. No evidence of a hemodynamically significant stenosis.
--- NOTE | 2021-02-07 13:06 | RAD REPORT ---
EXAM DESCRIPTION: US - Extrem Venous W Compress Juvencio - 02/07/2021 12:51 pm CLINICAL HISTORY: DVT COMPARISON: None. TECHNIQUE: Real-time sonographic evaluation of the bilateral lower extremity common femoral, superfi cial femoral, popliteal and posterior tibial veins was performed. FINDINGS: Normal compressibility, flow augmentation, phasic flow and spontaneous flow are identified in the left and right lower extremity common femoral, superficial femoral, popliteal and posterior t ibial veins. No intraluminal filling defects seen. IMPRESSION: No DVT in either lower extremity.
[2021-02-07] MEDS ORDERED: POTASSIUM 25 MEQ EFFERV TAB PO ONE (13:33)
[2021-02-07] MEDS ORDERED: POTASS/SODIUM PHOSPHATE 1 PKT POWD.PACK PO ONE (13:42)
[2021-02-07] MEDS: D5W 1,000 ML IV SCH (14:00)
[2021-02-07] MEDS ORDERED: LORazepam 2 MG/ML VIAL IV PRN (14:05)
--- NOTE | 2021-02-07 14:16 | P.PN ---
Subjective Date of Service: 02/07/21 Patient is more awake and moving around. Blood pressure is elevated. Started on a Cardene drip. Continue anti epileptics. Renal function is stable. Liver function is improving. Cultures show 1/4 bottle positive for gram-positive cocci. Echocardiogram pending. Carotid Doppler and venous Doppler have been negative. CT scan showed multiple infarcts. EEG in the morning. Review of Systems is unable to be obtained (Patient is intubated and sedated) Physical Examination - Vital Signs Temperature: 98 F Blood Pressure: 140/80 Pulse: 80 Respirations: 18 Pulse Ox (%): 95 - Physical Exam General: Other (Patient is intubated and sedated) HEENT: Other (ET tube in place. OG tube in place) Neck: Supple Respiratory: Clear to auscultation bilaterally, Normal air movement Cardiovascular: Regular rate/rhythm, Normal S1 S2 Gastrointestinal: Normal bowel sounds, Soft and benign, Non-distended, No tenderness, No rebound, No guarding Musculoskeletal: No clubbing, No swelling Integumentary: No rashes Neurological: Abnormal strength, Abnormal cranial nerve function Lymphatics: No axilla or inguinal lymphadenopathy - Studies Microbiology Data (last 24 hrs): 02/06/21 09:47 Cerebral Spinal Fluid Gram Stain - Final Assessment & Plan - Problems (Diagnosis) (1) Status epilepticus Current Visit: Yes Status: Acute (2) Acute respiratory failure Current Visit: Yes Status: Acute (3) Elevated LFTs Current Visit: Yes Status: Acute (4) Acute renal insufficiency Current Visit: Yes Status: Acute (5) Elevated troponin Current Visit: Yes Status: Acute (6) Elevated CPK Current Visit: Yes Status: Acute (7) Acute CVA (cerebrovascular accident) Current Visit: Yes Status: Acute - Plan 1. Continue with Anti epileptics 2. Continue with mechanical ventilation; pulmonary consultation appreciated 3. Neurology and Nephrology consultation appreciated 4. Continue with IV hydration 5. Acidosis has improved. 6. Patient has been weaned off of Levophed 7. Continue with propofol drip; start Ativan and fentanyl 8. CT scan shows multi infarcts; started on anti-platelet therapy and statin therapy 9. Renal function and liver function improving 10. continue IV antibiotic therapies; rule out vegetation and possible endocarditis with an echocardiogram; 11. GI and DVT prophylaxis Discharge Plan: Assisted Plan to discharge in: Greater than 2 days - Advance Directives Does patient have a Living Will: No Does patient have a Durable POA for Healthcare: No - Code Status/Comfort Care Code Status Assessed: Yes Code Status: Full Code Critical Care: Yes Time Spent Managing PTS Care (In Minutes): 45
--- NOTE | 2021-02-07 14:18 | RAD REPORT ---
EXAM DESCRIPTION: CT - Head Brain Wo Cont - 02/07/2021 6:49 am ADDENDUM #1 Urgent finding reported to Dr. Myles at 02/07/2021 5:41 AM HEARING INSTRUMENT SPECIALIST Electronically signed by: Jak Winn 02/07/2021 6:55 AM HEARING INSTRUMENT SPECIALIST End of Addendum EXAM DESCRIPTION: CT of the head without contrast CLINICAL HISTORY: Sz COMPARISON: 02/06/2021 TECHNIQUE: Axial CT of the head obtained from the skull apex to the skull base without contrast. Thi s exam was performed according to our departmental dose-optimization program, which includes automate d exposure control, adjustment of the mA and/or kV according to patient size and/or use of iterative reconstruction technique. FINDINGS: No acute intracranial hemorrhage identified. Interval development of well-circumscribed hy podensities involving the anterior left centrum semiovale and the left posterior malcolm radiata. . In terval progression of hypodensities in the bilateral basal ganglia and bilateral cerebellum. Regions likely represent areas of cytotoxic edema. Interval distention involving the temporal horn of the lat eral ventricles. No significant midline shift. The visualized paranasal sinuses and the mastoid air cells are relatively well aerated. No skull fr acture identified. Visualized orbits and globes are unremarkable. Excellent visualization of NG tub e. IMPRESSION: 1. Interval development of well-circumscribed hypodensities involving the anterior lef t centrum semiovale and the left posterior malcolm radiata. Interval progression of hypodensities in t he bilateral basal ganglia and bilateral cerebellum. Regions likely represent areas of cytotoxic reilly a. These findings are concerning for acute or subacute infarction. MRI of the brain recommended. 2. Interval distention involving the temporal horn of the lateral ventricles. This may indicate dev eloping communicating hydrocephalus. Electronically signed by: Jak Winn 02/07/2021 5:59 AM HEARING INSTRUMENT SPECIALIST Due to temporary technical issues with the PACS/Fluency reporting system, reports are being signed by the in house radiologists without review as a courtesy to insure prompt reporting. The interpreting radiologist is fully responsible for the content of the report.
[2021-02-07] MEDS ORDERED: POTASSIUM PHOS 10 MM in NA CHLORIDE 0.9% 250 ML IV ONE (14:30)
[2021-02-07 14:48] LABS: UR PROTEIN 27.3 mg/dL (<11.9)
[2021-02-07 14:58] LABS: UR CREAT < 13.0 mg/dL (20-320)
--- NOTE | 2021-02-07 15:44 | PN ---
Date of Progress Note: 02/07/2021 Subjective: The patient was admitted with altered mental status, intoxication. The patient was found to have multiple stroke, physical exam, and acidosis with acute kidney injury. Yesterday, was started on bicarb drip. Start hydration. Kidney function has been normalized. Physical Examination: Vital Signs: Blood pressure 140/80, pulse of 80, afebrile. The patient had good urine output. Chest: Clear to auscultation. Heart: S1, S2, regular. Abdomen: Soft, nontender. Extremities: No edema. Neuro: The patient still sedated. Laboratory Data: WBC 17.5, H and H 9.8/28.8. Sodium 149, potassium 3.1, bicarb 23, BUN 30, creatinine 1.1, GFR of 65, calcium of 7, phosphorus 1.8. Alkaline phosphatase 108. CK is 1662. Albumin 2.6, corrected calcium is 8.2. Current Medications: The patient on include; 1. Aspirin. 2. Periactin. 3. Vancomycin. 4. Plavix. 5. Lovenox. 6. Keppra. 7. Breathing treatment. 8. D5. Assessment And Plan: 1. Acute kidney injury secondary to toxic acute tubular necrosis, poor perfusion. Acute tubular necrosis recovered, resolved, looked to me normal volume. We will decrease IV fluid. 2. Hypernatremia. Continue D5. 3. Acidosis, high anion gap, metabolic acidosis secondary to lactic acidosis, status post bicarb drip, recovered, resolved. 4. Hypokalemia, hypophosphatemia. We will supplement. 5. Altered mental status secondary to cerebrovascular accident. We will follow up with Neurology and primary. time spend exam the patient face to face , placing order , reviewing the data of lab and radiology , discussing with the staff including nusing , discussing with other kurtz member including hospitalist and other new vehicle sales consultant 45 min IVY/SAHIL Voice ID: [id number] Report ID: [id number] SHANTANU
[2021-02-07 16:12] VITALS: BMI 34.9
[2021-02-07] MEDS ORDERED: POTASS/SODIUM PHOSPHATE 1 PKT POWD.PACK ONE (17:10)
[2021-02-07] MEDS: LORazepam 2 MG/ML VIAL IV PRN (22:05)
[2021-02-08] MEDS: FOSPHENYTOIN PE 100 MG/2 ML VIAL IV SCH ×3 (00:36→17:00)
[2021-02-08] MEDS: levETIRAcetam 1,000 MG in NA CHLORIDE 0.9% 100 ML IV SCH ×3 (02:23→17:35)
[2021-02-08] MEDS: propofoL 1,000 MG/100 ML VIAL IV PRN ×4 (02:26→20:43)
[2021-02-08] MEDS ORDERED: propofoL 1,000 MG/100 ML VIAL IV ONE ×4 (02:26→19:49)
[2021-02-08] MEDS ORDERED: HYDROMORPHONE HCL 2 MG/ML inj ONE (04:19)
[2021-02-08] MEDS: HYDROMORPHONE HCL 1 MG/ML INJ IV PRN ×4 (04:20→20:35)
[2021-02-08 04:44] LABS: Hematocrit 31.9 % (36.0-45.0); RBC Red Blood Cell Count 3.54 M/uL (3.86-4.86)
[2021-02-08 04:45] LABS: Absolute Lymphocytes (CBC) 3.2 K/uL (0.7-4.9); Basophils % 0.7 % (0-1.3); Lymphocytes % 24.2 % (15.3-44.8); MPV 8.1 fL (7.6-11.3)
[2021-02-08] MEDS ORDERED: D5W 1,000 ML IV ONE (05:09)
[2021-02-08] MEDS: D5W 1,000 ML IV SCH (05:10)
[2021-02-08 06:17] LABS: Albumin 2.9 g/dL (3.4-5.0); Bilirubin Total 0.3 mg/dL (0.2-1.0); Phosphorus 2.6 mg/dL (2.5-4.9); Protein, Total 6.7 g/dL (6.4-8.2)
[2021-02-08 06:18] LABS: Potassium 3.2 mmol/L (3.5-5.1)
[2021-02-08 06:19] LABS: Magnesium 1.8 mg/dL (1.8-2.4); Troponin I 4.39 ng/mL (0.0-0.045)
[2021-02-08] MEDS ORDERED: FENTANYL CITR 100 MCG/2 ML ONE (08:14)
[2021-02-08] MEDS ORDERED: CEFTRIAXONE 1000 MG/VIAL ONE (08:15)
[2021-02-08] MEDS ORDERED: CLOPIDOGREL 75 MG TABLET ONE (08:15)
[2021-02-08] MEDS ORDERED: ASPIRIN EC 81 MG TAB PO ONE (08:15)
[2021-02-08] MEDS ORDERED: ENOXAPARIN 40 MG/0.4 ML SQ ONE (08:16)
[2021-02-08] MEDS ORDERED: FOSPHENYTOIN PE 100 MG/2 ML VIAL ONE ×2 (08:16→17:39)
[2021-02-08] MEDS ORDERED: NA CHLORIDE 0.9% 50 ML ONE (08:17)
[2021-02-08] MEDS ORDERED: KCL 20 MEQ/100 mL IVPB 40 MEQ/200 ML BAG IV ONE (08:18)
[2021-02-08] MEDS: KCL 20 MEQ/100 mL IVPB 20 MEQ/100 ML BAG IV SCH ×2 (08:22→10:19)
[2021-02-08] MEDS: CEFTRIAXONE 1,000 MG in NA CHLORIDE 0.9% 50 ML IVPB SCH (08:25)
[2021-02-08] MEDS: ENOXAPARIN 40 MG/0.4 ML SQ SCH (08:26)
[2021-02-08] MEDS: CLOPIDOGREL 75 MG TABLET PO SCH (08:27)
[2021-02-08] MEDS: FENTANYL CITR 100 MCG/2 ML IV PRN (08:27)
[2021-02-08] MEDS: ASPIRIN EC 81 MG TAB PO SCH (08:27)
[2021-02-08] MEDS: FAMOTIDINE 20 MG/2 ML VIAL IV SCH ×2 (09:00→21:00)
--- NOTE | 2021-02-08 09:20 | RAD REPORT ---
EXAM DESCRIPTION: RAD - Chest Single View - 02/08/2021 6:03 am CLINICAL HISTORY: pneumonia Chest pain. COMPARISON: Chest Single View dated 02/07/2021; Chest Single View dated 02/07/2021; Chest Single View dated 02/06/2021; Chest Single View dated 02/06/2021 FINDINGS: Portable technique limits examination quality. Endotracheal tube tip is about 1 cm above the level of the superior aortic arch, considered adequate placement. Enteric tube descends into the stomach. The lungs are clear. The heart is normal in size.
[2021-02-08] MEDS ORDERED: HYDROMORPHONE HCL 1 MG/ML INJ ONE ×3 (09:31→19:48)
[2021-02-08] MEDS ORDERED: SUCCINYLCHOLINE 20 MG/ML (10 ML) IV ONE (11:19)
[2021-02-08] MEDS ORDERED: ETOMIDATE 20 MG/10 ML VIAL IV ONE (11:19)
[2021-02-08] MEDS: VANCOMYCIN 1.5 GM in NA CHLORIDE 0.9% 500 ML IVPB SCH (11:29)
[2021-02-08] MEDS ORDERED: VITAL HP 1,000 ML BOT RTH SCH (12:00)
--- NOTE | 2021-02-08 12:26 | P.CNS ---
Date of Consult: 02/08/21 Reason for Consult: Respiratory failure respiratory failure seizures Chief Complaint: Status epilepticus History of Present Illness: Patient is 40 years old patient is 40 years of age admitted to the hospital with persistent seizures he was taking some synthetic product was intubated currently on a propofol drip stable unable to move her right side Allergies Tetracyclines Allergy (Severe, Verified 02/07/21 20:19) Anaphylaxis minocycline Allergy (Unknown, Verified 02/07/21 20:19) Unknown hydralazine Allergy (Verified 02/07/21 20:25) unknown - Past Medical/Surgical History -: hypertension -: - Family History Father Family History: Reviewed- Non-Contributory - Social History Smoking Status: Current some day smoker Alcohol use: No CD- Drugs: No Caffeine use: No Place of Residence: Home Review of Systems is unable to be obtained Physical Examination Temp Pulse Resp BP Pulse Ox 97.7 F 78 15 161/111 H 100 02/08/21 07:00 02/08/21 10:00 02/08/21 10:00 02/08/21 10:00 02/08/21 10:00 General: Unresponsive Respiratory: Clear to auscultation bilaterally, Friction rub Cardiovascular: Normal S1 S2 - Problems (1) Status epilepticus Current Visit: Yes Status: Acute Plan: Patient is 40 years patient is 40 years of age admitted with seizures apparently she was using some synthetic products that may have triggered these events hemodynamically stable according to the nurses unable to move her right side plan to wean her off the propofol use sedation on a as needed basis repeat CT scan repeat CT scan shows cerebral infarction blood culture positive for strep pneumonia chest x-ray is clear plan to wean off the ventilator if possible Dobbhoff for tube feeds dietary consult DC vancomycin continue with Rocephin once a day lumbar puncture did not show any evidence of DATA PROCESSING SYSTEMS CONSULTANT infection
[2021-02-08] MEDS ORDERED: METOPROLOL TARTRATE 5 MG/5 ML INJ IV ONE ×2 (12:36→19:48)
[2021-02-08] MEDS: METOPROLOL TARTRATE 5 MG/5 ML INJ IV PRN ×2 (12:37→19:50)
[2021-02-08] MEDS ORDERED: LORazepam 2 MG/ML VIAL ONE ×2 (15:07→19:48)
[2021-02-08] MEDS: LORazepam 2 MG/ML VIAL IV PRN ×2 (15:10→19:50)
--- NOTE | 2021-02-08 16:49 | P.PN ---
Subjective Date of Service: 02/08/21 Primary Care Provider: none Chief Complaint: Status epilepticus Subjective: Other (Patient remains intubated and sedated) Physical Examination - Vital Signs Temperature: 97.7 F Blood Pressure: 191/125 Pulse: 108 Respirations: 15 Pulse Ox (%): 100 - Studies Microbiology Data (last 24 hrs): 02/06/21 08:45 Clean Catch Urine [place] Count - Final No growth. 02/06/21 08:45 Clean Catch Urine - Final No growth. Assessment & Plan Discharge Plan: Home Plan to discharge in: Greater than 2 days Physician Review Additional Text: COVID: CT Scan: Physical exam: General: Other (Patient is intubated and sedated) HEENT: Other (ET tube in place. OG tube in place) Neck: Supple Respiratory: Clear to auscultation bilaterally, Normal air movement Cardiovascular: Regular rate/rhythm, Normal S1 S2 Gastrointestinal: Normal bowel sounds, Soft and benign, Non-distended, No tender ness, No rebound, No guarding Musculoskeletal: No clubbing, No swelling Integumentary: No rashes Neurological: Patient is sedated. Lymphatics: No axilla or inguinal lymphadenopathy Impression: Status epilepticus Acute respiratory failure Elevated Troponin likely ischemic demand HTN uncontrolled Acute CVA Acute renal failure Acute liver failure Bacteremia-Strep. pneumonia Plan: 1. Continue with Anti epileptics-Keppra/fosphenytoin. Will discuss with Neurology. 2. Continue with mechanical ventilation; pulmonary consultation appreciated. On Rocephin to cover for infection 3. Continue with Nephrology recommendations and IV FLuids. Renal function improved. 4. Off Levophed. 5. Provide Metoprolol IV. Maintain BP around 160-180 sys. May need to get back on Cardene drip if BP extremely elevated. 6. Continue with propofol drip 7. CT scan shows multi infarcts; started on anti-platelet therapy and statin therapy. Will need MRI once extubated. Will need PT/OT/Speech. 8. Renal function and liver function improving 9. Will check ECHO; 10. GI and DVT prophylaxis DVT prophylaxis: Lovenox Code status: Full code Advanced care planning: Spoke to Mother. Will continue with plan above. Time Spent Managing Pts Care (In Minutes): 55
--- NOTE | 2021-02-08 20:36 | CON ---
Reason For Consultation: Consultation called because of status epilepticus. History Of Present Illness: Ms Ordoñez is a 40-year-old patient with a long history of using Kratom and CBD for anxiety since at least 5 years, who comes after being found unresponsive for somewhere around 3 hours. She apparently the night before, which is on the 05 of February, was acting strange and not appropriate and was falling asleep. She slept on the couch and later on the f augustiny noted, they woke up, they found her seizing on the couch. However, length of time that she was found was not clear. It may have been around 3 hours or so. At [facility], has continued seizures. She was intubated and treated with fosphenytoin, Keppra and with a propofol drip after int ubation stopped seizures. She did have marked severe acidosis with a very elevated lactic acid. Fou nd to have a white blood cell count of 57,000 and chest x-ray identified infiltrate in her left lung base versus atelectasis. She received IV Rocephin and had pressure support because of her lower bloo d pressure. Her head CT scan x2 eventually identified multiple areas of acute subacute strokes invol ving the anterior left centrum semiovale, the left posterior malcolm radiata bilaterally and the basal ganglia and bilaterally in the cerebellum. The areas were felt to represent cytotoxic edema. It is possible from very overactive continuous activity seen in those parts, perhaps consistent with statu s epilepticus. In addition, there was felt to be interval distention of the temporal horns of the la teral ventricles with worrisome possibility of communicating hydrocephalus. She has not had a brain MRI as she is intubated. Deep vein thrombosis studies that is the Doppler of the lower extremities r evealed negative for deep vein thrombus. Carotid artery ultrasound showed no significant atheroscler otic changes or hemodynamically significant stenosis. She remains intubated at this point and her propofol has been turned off, but she is still not waking up at this point. Past Medical History: As noted. Allergies: MINOCYCLINE, TETRACYCLINE, HYDRALAZINE. Social History: She uses CBD and Kratom for at least 5 years. The patient smokes tobacco. Family History: Noncontributory. Review of Systems: Not possible as she is currently intubated. Physical Examination: Vital Signs: Blood pressure elevated at 191/125, pulse 108, respiratory rate 15, temperature 97.7. Oxygen saturation 100%, intubated mechanically with FiO2 30%. She is 185 pounds, 5 feet 1 inch, BMI 35. General: As noted, Ms. Ordoñez was intubated and not responsive at this point. There is no asymmetry of tone in the upper or lower extremities. Reflexes symmetric. Laboratory Studies: Most recent laboratory studies, her basic metabolic panel shows a low potassium of 3.2, glucose ranged from 102 to 111, calcium 7.3. Lactic acid 0.8. Procalcitonin 6.68. AST 330, ALT 455, alkaline phosphatase 106. Creatine kinase 1481, troponin 4.39, lipase 182. Urine toxicolo gy screen is negative. CSF studies showed glucose elevated to 179 with protein normal at 39, white b lood cells 2, red blood cells, 8 and CSF is clear, colorless, non-xanthochromic. COVID-19 testing ne gative. Assessment: Ms. Ordoñez is a 40-year-old patient with status epilepticus, perhaps related to chronic drug use. She has had evidence of possible pneumonia, she is on antibiotics. Her white blood cell c ount is rapidly normalizing. Her routine electroencephalogram done earlier showed a mild to moderate ly slow background with no epileptic activity identified. Plan: 1.Continue aggressive management of potential pneumonia. Continue with Keppra 500 mg IV twice daily . 2.Continue with fosphenytoin 100 mg IV q.8 hours, deep vein thrombosis prophylaxis with Lovenox 40 m g subcutaneous daily, Plavix 75 mg daily, aspirin 81 mg daily. 3.The patient will be followed while in hospital. GEORGE/SAHIL Voice ID: [id number] Report ID: [id number]
[2021-02-08] MEDS ORDERED: VANCOMYCIN 1.5 GM in NA CHLORIDE 0.9% 500 ML IVPB SCH ×2 (21:00→22:00)
[2021-02-08] MEDS ORDERED: KCL 20 MEQ/100 mL IVPB 20 MEQ/100 ML BAG IV SCH (22:00)
[2021-02-08] MEDS ORDERED: KCL 20 MEQ/100 mL IVPB 20 MEQ/100 ML BAG IV ONE (22:11)
--- NOTE | 2021-02-08 23:57 | PN ---
Date of Progress Note: 02/08/2021 Chief Complaint: Acute kidney injury status post intoxication, altered mental status. Subjective: Patient was found to have multiple strokes. She is obtunded. She does not follow comma nds. She remains intubated. Patient is on IV fluids and she received IV bicarbonate drip. Kidney f unction has improved over last few days. Review of Systems: Unobtainable. Objective: Lungs: Clear to auscultation bilaterally. Heart: S1 and S2. Abdomen: Soft, benign. Extremities: No edema. Impression And Plan: 1.Acute kidney injury secondary to acute tubular necrosis due to renal hypoperfusion. The patient w ill continue IV fluids. Monitor electrolytes. 2.Hypernatremia. Patient was started on D5W. Continue thiamine. 3.Acidosis secondary to lactic acidosis. The patient received bicarbonate drip and completed the bi carbonate drip. Monitor electrolytes and ABG. 4.Hypokalemia, hypophosphatemia. Supplement according to lab results. EB/MODL Voice ID: [id number] Report ID: [id number]
[2021-02-09] MEDS ORDERED: HYDROMORPHONE HCL 1 MG/ML INJ ONE ×6 (00:32→22:20)
[2021-02-09] MEDS ORDERED: FAMOTIDINE 20 MG/2 ML VIAL IV ONE ×3 (00:32→22:04)
[2021-02-09] MEDS ORDERED: FOSPHENYTOIN PE 100 MG/2 ML VIAL ONE ×3 (00:33→17:43)
[2021-02-09] MEDS: HYDROMORPHONE HCL 1 MG/ML INJ IV PRN ×6 (00:34→23:45)
[2021-02-09] MEDS: FAMOTIDINE 20 MG/2 ML VIAL IV SCH ×3 (00:34→22:05)
[2021-02-09] MEDS: FOSPHENYTOIN PE 100 MG/2 ML VIAL IV SCH ×3 (00:37→17:45)
[2021-02-09] MEDS: D5W 1,000 ML IV SCH (01:21)
[2021-02-09] MEDS ORDERED: propofoL 1,000 MG/100 ML VIAL IV ONE (02:02)
[2021-02-09] MEDS: propofoL 1,000 MG/100 ML VIAL IV PRN (02:03)
[2021-02-09] MEDS ORDERED: LORazepam 2 MG/ML VIAL ONE ×7 (03:13→22:20)
[2021-02-09] MEDS: LORazepam 2 MG/ML VIAL IV PRN ×6 (03:19→22:42)
[2021-02-09] MEDS: levETIRAcetam 1,000 MG in NA CHLORIDE 0.9% 100 ML IV SCH ×2 (05:18→17:45)
[2021-02-09 05:32] LABS: Absolute Lymphocytes (CBC) 3.8 K/uL (0.7-4.9); Hematocrit 33.8 % (36.0-45.0); Lymphocytes % 33.2 % (15.3-44.8); MPV 8.3 fL (7.6-11.3); RBC Red Blood Cell Count 3.76 M/uL (3.86-4.86)
[2021-02-09 05:55] LABS: Bilirubin Total 0.3 mg/dL (0.2-1.0); Phosphorus 2.5 mg/dL (2.5-4.9); Potassium 3.5 mmol/L (3.5-5.1); Protein, Total 7.2 g/dL (6.4-8.2)
[2021-02-09 05:56] LABS: Magnesium 1.9 mg/dL (1.8-2.4); Troponin I 2.85 ng/mL (0.0-0.045)
[2021-02-09 05:58] LABS: Arterial Blood Carboxyhemoglob 0.9 % (0-1.5); Blood Gas Oxyhemoglobin 97.1 % (94-97); Blood O2 Saturation 99.1 % (92-98.5)
[2021-02-09] MEDS ORDERED: METOPROLOL TARTRATE 5 MG/5 ML INJ IV ONE ×2 (06:08→12:38)
[2021-02-09] MEDS: METOPROLOL TARTRATE 5 MG/5 ML INJ IV PRN ×2 (06:13→12:39)
--- NOTE | 2021-02-09 06:24 | P.PN ---
Subjective Date of Service: 02/09/21 Primary Care Provider: none Chief Complaint: Status epilepticus Subjective: Other (Patient remains intubated and sedated) Physical Examination - Vital Signs Temperature: 98.6 F Blood Pressure: 180/122 Pulse: 86 Respirations: 14 Pulse Ox (%): 100 - Studies Microbiology Data (last 24 hrs): 02/06/21 08:45 Clean Catch Urine [place] Count - Final No growth. 02/06/21 08:45 Clean Catch Urine - Final No growth. Assessment & Plan Discharge Plan: Home Plan to discharge in: Greater than 2 days Physician Review Additional Text: COVID: negative Initial CT Head: COMPARISON: None TECHNIQUE: Computed axial tomography of the head was obtained. IV contrast was not requested. All CT scans are performed using dose optimization technique as appropriate and may include automated exposure control or mA/KV adjustment according to patient size. FINDINGS: An intracranial bleed is not seen . Subtle low-density area right internal capsule and left caudate The ventricles are normal in caliber. No extra-axial fluid collection is noted. Fluid within the sinuses/ mastoids is not seen. IMPRESSION: Subtle low-density areas right internal capsule and left caudate. These could be acute or chronic. Follow up CT Head: COMPARISON: 02/06/2021 TECHNIQUE: Axial CT of the head obtained from the skull apex to the skull base without contrast. This exam was performed according to our departmental dose- optimization program, which includes automated exposure control, adjustment of the mA and/or kV according to patient size and/or use of iterative reconstruction technique. FINDINGS: No acute intracranial hemorrhage identified. Interval development of well-circumscribed hypodensities involving the anterior left centrum semiovale and the left posterior malcolm radiata. . Interval progression of hypodensities in the bilateral basal ganglia and bilateral cerebellum. Regions likely represent areas of cytotoxic edema. Interval distention involving the temporal horn of the lateral ventricles. No significant midline shift. The visualized paranasal sinuses and the mastoid air cells are relatively well aerated. No skull fracture identified. Visualized orbits and globes are unremarkable. Excellent visualization of NG tube. IMPRESSION: 1. Interval development of well-circumscribed hypodensities involving the anterior left centrum semiovale and the left posterior malcolm radiata. Interval progression of hypodensities in the bilateral basal ganglia and bilateral cerebellum. Regions likely represent areas of cytotoxic edema. These findings are concerning for acute or subacute infarction. MRI of the brain recommended. 2. Interval distention involving the temporal horn of the lateral ventricles. This may indicate developing communicating hydrocephalus. ECHO: MEASUREMENTS (cm) DIASTOLIC (NORMALS) SYSTOLIC (NORMALS) IVSd 1.2 (0.6-1.2) LA Diam 2.3 (1.9-4.0) LVEF 71% LVIDd 3.5 (3.5-5.7) LVIDs 2.1 (2.0-3.5) %FS 40% LVPWd 1.0 (0.6-1.2) Ao Diam 2.8 (2.0-3.7) 2 DIMENSIONAL ASSESSMENT: RIGHT ATRIUM: NORMAL LEFT ATRIUM: NORMAL RIGHT VENTRICLE: NORMAL LEFT VENTRICLE: NORMAL TRICUSPID VALVE: MITRAL VALVE: PULMONIC VALVE: NORMAL AORTIC VALVE: NORMAL PERICARDIAL EFFUSION: NONE AORTIC ROOT: NORMAL LEFT VENTRICULAR WALL MOTION: NORMAL DOPPLER/COLOR FLOW: SEE BELOW. COMMENTS: NORMAL LEFT VENTRICULAR EJECTION FRACTION > 60% WITH NORMAL WALL MOTION. MILD TRICUSPID AND MITRAL REGURGITATION. NO CLEAR VEGETATION IS SEEN ON THIS EXAM. KUB: COMPARISON: No comparisons FINDINGS: NG tube tip overlies the stomach. Right femoral line with tip overlying the L4 vertebral body. The bowel is relatively gasless and without evidence of obstruction. Mild scoliosis. IMPRESSION: Relatively gasless appearance of the abdomen which could be due to decompressed and/or fluid filled bowel. Though not excluded, an ileus or bowel obstruction considered less likely. . Follow up CXR: COMPARISON: Abdomen 1 View (KUB) dated 02/09/2021; Chest Single View dated 02/09/2021; Chest Single View dated 02/08/2021; Chest Single View dated 02/07/2021 FINDINGS: The endotracheal tube has been advanced slightly too far as it sits just above the lexus. This may reflect differences in head positioning from prior as well as inexact measurements by chest radiograph. The enteric tube has also been advanced and is in better positioning. IMPRESSION: Interval advancement of the endotracheal tube. Recommend retraction by approximately 1.5 cm. The enteric tube is in better positioning. Carotid doppler: FINDINGS: Normal high resistance waveforms are noted in both external carotid arteries. The common carotid arteries and internal carotid arteries show normal low resistance waveforms. No significant plaque formation is seen. Peak systolic and end diastolic velocity values and the ICA/CCA ratios are in the non-hemodynamically significant range. Antegrade flow seen in both vertebral arteries. Velocity values and ratios were recorded and are retained in the patient's imaging records. IMPRESSION: No significant atherosclerotic changes noted. No evidence of a hemodynamically significant stenosis. Physical exam: General: Remains intubated and sedated HEENT: Other (ET tube in place. OG tube in place) Neck: Supple Respiratory: Clear to auscultation bilaterally, Normal air movement Cardiovascular: Regular rate/rhythm, Normal S1 S2 Gastrointestinal: Soft. Nondistended. Musculoskeletal: No clubbing, No swelling Integumentary: No rashes Neurological: Patient is sedated. Lymphatics: No axilla or inguinal lymphadenopathy Impression: Status epilepticus Acute respiratory failure Elevated Troponin likely ischemic demand HTN uncontrolled Acute CVA Acute renal failure Acute liver failure Bacteremia-Strep. pneumonia Ileus Plan: Status epilepticus: Continue antibioticsKeppra and fosphenytoin. Will discuss with neurology about plan of care. Patient remains intubated. Patient to be trialed on spontaneous breathing. Recent CT scan shows interval development of hypodensities involving the anterior left centrum semiovale left posterior malcolm radiata. Interval progression of hypodensities in the bilateral basal ganglia and bilateral cerebellum also noted. Regions likely may represent cytotoxic edema. These findings may be concerning for acute/subacute infarct. Interval distention involving the temporal horn of the lateral ventricles may indicate early developing communicating hydrocephalus. May need to recheck CT scan of head. Will discuss further with neurology about plan of care. Still not able to do MRI to further evaluate due to patient's current status. Acute respiratory failure: Patient remains intubated. Sedation decreased to trial on spontaneous breathing. Continue with pulmonology recommendations. Patient remains on IV fluids, IV antibiotic therapy. Elevated Troponin likely ischemic demand: Continue aspirin, Plavix. No plan for intervention. Echocardiogram shows normal ejection fraction. HTN uncontrolled: Continue with IV metoprolol. Maintain blood pressure around 160-180 systolic. Will discuss further with neurology Acute versus subacute CVA: Recheck CT brain. Still not able to do MRI to further evaluate her condition. Will discuss with Acute renal failure: Renal function improving. Continue with nephrology recommendations. Acute liver failure: Function tests improved. Continue monitor closely. Bacteremia-Strep. pneumonia: Continue Rocephin. Repeat blood cultures. Ileus: Hold feedings. Reposition of enteric tube. Continue with low intermitent suction. Keep NPO. Will discuss with Pulmonary/Neurology. Recheck KUB tomorrow. Will check hemoglobin hematocrit. DVT prophylaxis: Lovenox Code status: Full code Advanced care planning: Spoke to Mother. Will continue with plan above. Time Spent Managing Pts Care (In Minutes): 55
--- NOTE | 2021-02-09 06:53 | EEG ---
CHART: [id number] TEST ID#: [id number] DATE OF STUDY: 02/09/2021 THE EEG WAS RECORDED PORTABLE IN THE EMERGENCY ROOM (ICU HOLD) ON A 14 CHANNEL MACHINE. ELECTRODES WERE APPLIED IN THE USUAL MANNER USING THE INTERNATIONAL 10-20 SYSTEM. THE WAKING BACKGROUND RHYTHM IN THIS RECORD CONSISTS OF POORLY DEVELOPED AND POORLY ORGANIZED WAVES OF 6-7 HZ., IN A WIDE DISTRIBUTION WHICH DO NOT ATTENUATE NORMALLY WITH EYE OPENING. MODERATE VOLTAGE 1.5-3 HZ ACTIVITY IS EXPRESSED IN THE FRONTAL, CENTRAL REGIONS AND TEMPORAL REGIONS. DIAPHASIC WAVES ARE EXPRESSED IN THE FRONTAL AND TEMPORAL REGIONS. THERE ARE NO FOCAL OR LATERALIZING FEATURES. NO EPILEPTIFORM ACTIVITY APPEARS. SLEEP DID NOT OCCUR. HYPERVENTILATION WAS NOT PERFORMED. PHOTIC STIMULATION WAS NOT PERFORMED. IMPRESSION: THIS IS A MODERATELY ABNORMAL ROUTINE EEG DUE TO A MODERATELY SLOW BACKGROUND. THIS IS A NON-SPECIFIC FINDING INDICATING THE PRESENCE OF A MODERATE DIFFUSE DISTURBANCE IN CEREBRAL FUNCTION. NO EPILEPTIFORM ACTIVITY WAS RECORDED.
--- NOTE | 2021-02-09 07:14 | ECHO ---
HEIGHT: 5 ft 1 in WEIGHT: 185 lb 0 oz DATE OF STUDY: 02/08/[address]: Leatha Carrillo MD 2-DIMENSIONAL: YES M.MODE: YES DOPPLER: YES COLOR FLOW: YES TDS: NO PORTABLE: YES DEFINITY: NO BUBBLE STUDY: NO DIAGNOSIS: ELEVATED TROPONIN, RULE OUT VEGETATION CARDIAC HISTORY: CATHERIZATION: NO SURGERY: NO PROSTHETIC VALVE: NO PACEMAKER: NO MEASUREMENTS (cm) DIASTOLIC (NORMALS) SYSTOLIC (NORMALS) IVSd 1.2 (0.6-1.2) LA Diam 2.3 (1.9-4.0) LVEF 71% LVIDd 3.5 (3.5-5.7) LVIDs 2.1 (2.0-3.5) %FS 40% LVPWd 1.0 (0.6-1.2) Ao Diam 2.8 (2.0-3.7) 2 DIMENSIONAL ASSESSMENT: RIGHT ATRIUM: NORMAL LEFT ATRIUM: NORMAL RIGHT VENTRICLE: NORMAL LEFT VENTRICLE: NORMAL TRICUSPID VALVE: MITRAL VALVE: PULMONIC VALVE: NORMAL AORTIC VALVE: NORMAL PERICARDIAL EFFUSION: NONE AORTIC ROOT: NORMAL LEFT VENTRICULAR WALL MOTION: NORMAL DOPPLER/COLOR FLOW: SEE BELOW. COMMENTS: NORMAL LEFT VENTRICULAR EJECTION FRACTION > 60% WITH NORMAL WALL MOTION. MILD TRICUSPID AND MITRAL REGURGITATION. NO CLEAR VEGETATION IS SEEN ON THIS EXAM. TECHNOLOGIST: Ambrocio KOCH
--- NOTE | 2021-02-09 07:43 | RAD REPORT ---
EXAM DESCRIPTION: RAD - Chest Single View - 02/09/2021 6:03 am CLINICAL HISTORY: vented COMPARISON: Chest Single View dated 02/08/2021; Chest Single View dated 02/07/2021; Chest Single View dated 02/07/2021; Chest Single View dated 02/06/2021 FINDINGS: Lines: Retracted endotracheal tube which is approximately 3 cm above the superior aspect o f the aortic arch. Recommend advancement by 4 cm for more optimal positioning. NG tube tip overlies t he stomach but which has been retracted as well. Lungs: No evidence of edema or pneumonia. Pleural: No significant pleural effusions or pneumothorax. Cardiac: The heart size is within normal limits. Bones: No acute fractures. Other: IMPRESSION: No acute cardiopulmonary disease. The endotracheal tube and NG tube have been retracted. The endotracheal tube should be advanced by 4 cm for more optimal positioning at the aortic arch. Th e tip of the enteric tube tip overlies the stomach but could also considered advancing by 8 cm for mo re optimal positioning.
[2021-02-09] MEDS ORDERED: POTASSIUM PHOS 10 MM in NA CHLORIDE 0.9% 250 ML IV ONE (08:00)
--- NOTE | 2021-02-09 08:26 | RAD REPORT ---
EXAM DESCRIPTION: RAD - Abdomen 1 View (KUB) - 02/09/2021 8:12 am CLINICAL HISTORY: rule out ileus COMPARISON: No comparisons FINDINGS: NG tube tip overlies the stomach. Right femoral line with tip overlying the L4 vertebral b leann. The bowel is relatively gasless and without evidence of obstruction. Mild scoliosis. IMPRESSION: Relatively gasless appearance of the abdomen which could be due to decompressed and/or f luid filled bowel. Though not excluded, an ileus or bowel obstruction considered less likely. .
[2021-02-09] MEDS: CLOPIDOGREL 75 MG TABLET PO SCH (09:00)
[2021-02-09] MEDS: ASPIRIN EC 81 MG TAB PO SCH (09:00)
[2021-02-09] MEDS ORDERED: NA CHLORIDE 0.9% 0 ML ONE (09:12)
[2021-02-09] MEDS ORDERED: CEFTRIAXONE 1000 MG/VIAL ONE (09:12)
[2021-02-09] MEDS ORDERED: NA CHLORIDE 0.9% 50 ML ONE (09:32)
[2021-02-09] MEDS: CEFTRIAXONE 1,000 MG in NA CHLORIDE 0.9% 50 ML IVPB SCH (09:32)
--- NOTE | 2021-02-09 09:32 | RAD REPORT ---
EXAM DESCRIPTION: RAD - Chest Single View - 02/09/2021 9:23 am CLINICAL HISTORY: Advance ETT 4cm, check placement COMPARISON: Abdomen 1 View (KUB) dated 02/09/2021; Chest Single View dated 02/09/2021; Chest Single Vi ew dated 02/08/2021; Chest Single View dated 02/07/2021 FINDINGS: The endotracheal tube has been advanced slightly too far as it sits just above the lexus. This may reflect differences in head positioning from prior as well as inexact measurements by chest radiograph. The enteric tube has also been advanced and is in better positioning. IMPRESSION: Interval advancement of the endotracheal tube. Recommend retraction by approximately 1.5 cm. The enteric tube is in better positioning.
--- NOTE | 2021-02-09 12:39 | P.PN ---
Subjective Date of Service: 02/09/21 Primary Care Provider: none Chief Complaint: Respiratory failure stroke Patient is a little bit more responsive on deep pain stimulation mother at the bedside has uncontrolled hypertension at home does not take any medications l patient has left-sided paresis Review of Systems is unable to be obtained Physical Examination - Vital Signs Temperature: 98.6 F Blood Pressure: 180/122 Pulse: 86 Respirations: 14 Pulse Ox (%): 100 - Physical Exam General: Other (Responsive to deep pain stimulation) Respiratory: Clear to auscultation bilaterally Cardiovascular: No edema, Normal S1 S2 Gastrointestinal: Normal bowel sounds - Studies Microbiology Data (last 24 hrs): 02/06/21 09:47 Cerebral Spinal Fluid Gram Stain - Final 02/06/21 09:47 Cerebral Spinal Fluid Culture & Sensitivity - Final No growth. 02/06/21 08:45 Clean Catch Urine [place] Count - Final No growth. 02/06/21 08:45 Clean Catch Urine - Final No growth. Assessment & Plan - Problems (Diagnosis) (1) Status epilepticus Current Visit: Yes Status: Acute Plan: Patient is a id this is stable still unresponsive off sedation requiring intermittent p.r.n. 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 IV contrast was not requested. All CT scans are performed using dose optimization technique as appropriate and may include automated exposure control or mA/KV adjustment according to patient size. FINDINGS: An intracranial bleed is not seen . Subtle low-density area right internal capsule and left caudate The ventricles are normal in caliber. No extra-axial fluid collection is noted. Fluid within the sinuses/ mastoids is not seen. IMPRESSION: Subtle low-density areas right internal capsule and left caudate. These could be acute or chronic. Follow up CT Head: COMPARISON: 02/06/2021 TECHNIQUE: Axial CT of the head obtained from the skull apex to the skull base without contrast. This exam was performed according to our departmental dose- optimization program, which includes automated exposure control, adjustment of the mA and/or kV according to patient size and/or use of iterative reconstruction technique. FINDINGS: No acute intracranial hemorrhage identified. Interval development of well-circumscribed hypodensities involving the anterior left centrum semiovale and the left posterior malcolm radiata. . Interval progression of hypodensities in the bilateral basal ganglia and bilateral cerebellum. Regions likely represent areas of cytotoxic edema. Interval distention involving the temporal horn of the lateral ventricles. No significant midline shift. The visualized paranasal sinuses and the mastoid air cells are relatively well aerated. No skull fracture identified. Visualized orbits and globes are unremarkable. Excellent visualization of NG tube. IMPRESSION: 1. Interval development of well-circumscribed hypodensities involving the anterior left centrum semiovale and the left posterior malcolm radiata. Interval progression of hypodensities in the bilateral basal ganglia and bilateral cerebellum. Regions likely represent areas of cytotoxic edema. These findings are concerning for acute or subacute infarction. MRI of the brain recommended. 2. Interval distention involving the temporal horn of the lateral ventricles. This may indicate developing communicating hydrocephalus. ECHO: MEASUREMENTS (cm) DIASTOLIC (NORMALS) SYSTOLIC (NORMALS) IVSd 1.2 (0.6-1.2) LA Diam 2.3 (1.9-4.0) LVEF 71% LVIDd 3.5 (3.5-5.7) LVIDs 2.1 (2.0-3.5) %FS 40% LVPWd 1.0 (0.6-1.2) Ao Diam 2.8 (2.0-3.7) 2 DIMENSIONAL ASSESSMENT: RIGHT ATRIUM: NORMAL LEFT ATRIUM: NORMAL RIGHT VENTRICLE: NORMAL LEFT VENTRICLE: NORMAL TRICUSPID VALVE: MITRAL VALVE: PULMONIC VALVE: NORMAL AORTIC VALVE: NORMAL PERICARDIAL EFFUSION: NONE AORTIC ROOT: NORMAL LEFT VENTRICULAR WALL MOTION: NORMAL DOPPLER/COLOR FLOW: SEE BELOW. COMMENTS: NORMAL LEFT VENTRICULAR EJECTION FRACTION > 60% WITH NORMAL WALL MOTION. MILD TRICUSPID AND MITRAL REGURGITATION. NO CLEAR VEGETATION IS SEEN ON THIS EXAM. KUB: COMPARISON: No comparisons FINDINGS: NG tube tip overlies the stomach. Right femoral line with tip overlying the L4 vertebral body. The bowel is relatively gasless and without evidence of obstruction. Mild scoliosis. IMPRESSION: Relatively gasless appearance of the abdomen which could be due to decompressed and/or fluid filled bowel. Though not excluded, an ileus or bowel obstruction considered less likely. . Follow up CXR: COMPARISON: Abdomen 1 View (KUB) dated 02/09/2021; Chest Single View dated 02/09/2021; Chest Single View dated 02/08/2021; Chest Single View dated 02/07/2021 FINDINGS: The endotracheal tube has been advanced slightly too far as it sits just above the lexus. This may reflect differences in head positioning from prior as well as inexact measurements by chest radiograph. The enteric tube has also been advanced and is in better positioning. IMPRESSION: Interval advancement of the endotracheal tube. Recommend retraction by approximately 1.5 cm. The enteric tube is in better positioning. Carotid doppler: FINDINGS: Normal high resistance waveforms are noted in both external carotid arteries. The common carotid arteries and internal carotid arteries show normal low resistance waveforms. No significant plaque formation is seen. Peak systolic and end diastolic velocity values and the ICA/CCA ratios are in the non-hemodynamically significant range. Antegrade flow seen in both vertebral arteries. Velocity values and ratios were recorded and are retained in the patient's imaging records. IMPRESSION: No significant atherosclerotic changes noted. No evidence of a hemodynamically significant stenosis. Physical exam: General: Remains intubated and sedated HEENT: Other (ET tube in place. OG tube in place) Neck: Supple Respiratory: Clear to auscultation bilaterally, Normal air movement Cardiovascular: Regular rate/rhythm, Normal S1 S2 Gastrointestinal: Soft. Nondistended. Musculoskeletal: No clubbing, No swelling Integumentary: No rashes Neurological: Patient is sedated. Lymphatics: No axilla or inguinal lymphadenopathy Impression: Status epilepticus Acute respiratory failure Elevated Troponin likely ischemic demand HTN uncontrolled Acute CVA Acute renal failure Acute liver failure Bacteremia-Strep. pneumonia Ileus Plan: Status epilepticus: Continue antibioticsKeppra and fosphenytoin. Will discuss with neurology about plan of care. Patient remains intubated. Patient to be trialed on spontaneous breathing. Recent CT scan shows interval development of hypodensities involving the anterior left centrum semiovale left posterior malcolm radiata. Interval progression of hypodensities in the bilateral basal ganglia and bilateral cerebellum also noted. Regions likely may represent cytotoxic edema. These findings may be concerning for acute/subacute infarct. Interval distention involving the temporal horn of the lateral ventricles may indicate early developing communicating hydrocephalus. May need to recheck CT scan of head. Will discuss further with neurology about plan of care. Still not able to do MRI to further evaluate due to patient's current status. Acute respiratory failure: Patient remains intubated. Sedation decreased to trial on spontaneous breathing. Continue with pulmonology recommendations. Patient remains on IV fluids, IV antibiotic therapy. Elevated Troponin likely ischemic demand: Continue aspirin, Plavix. No plan for intervention. Echocardiogram shows normal ejection fraction. HTN uncontrolled: Continue with IV metoprolol. Maintain blood pressure around 160-180 systolic. Will discuss further with neurology Acute versus subacute CVA: Recheck CT brain. Still not able to do MRI to further evaluate her condition. Will discuss with Acute renal failure: Renal function improving. Continue with nephrology recommendations. Acute liver failure: Function tests improved. Continue monitor closely. Bacteremia-Strep. pneumonia: Continue Rocephin. Repeat blood cultures. Ileus: Hold feedings. Reposition of enteric tube. Continue with low intermitent suction. Keep NPO. Will discuss with Pulmonary/Neurology. Recheck KUB tomorrow. Will check hemoglobin hematocrit. DVT prophylaxis: Lovenox Code status: Full code Advanced care planning: Spoke to Mother. Will continue with plan above.
[2021-02-09] MEDS ORDERED: CLONIDINE 0.2 MG/PATCH TD SCH (12:42)
[2021-02-09 13:28] LABS: Hematocrit 34.5 % (36.0-45.0)
[2021-02-09] MEDS ORDERED: HYDRALAZINE HCL 25 MG TABLET PO SCH (14:00)
[2021-02-09] MEDS ORDERED: ENOXAPARIN 40 MG/0.4 ML SQ ONE (17:43)
[2021-02-09] MEDS: ENOXAPARIN 40 MG/0.4 ML SQ SCH (17:44)
[2021-02-09] MEDS: carvediloL 12.5 MG TAB PO SCH (18:00)
--- NOTE | 2021-02-09 18:03 | PN ---
Subjective: The patient was admitted with altered mental status, respiratory failure, hypertension, acute kidney injury with severe acidosis. Apparently, the patient had preeclampsia during the and had to have premature baby at age of 8 months. The patient's workup found to have CVA. The patient had planned for repeated CT today. Kidney function has been normalized. Blood pressure still elevated. Physical Examination: Vital Signs: Blood pressure 182/120, pulse of 86, afebrile. Chest: Clear to auscultation. Heart: S1, S2. Regular. Abdomen: Soft, nontender. Extremity: No edema. Neuro: The patient on vent. Laboratory Data: WBC 11.5, H and H 11.2/33.8. Sodium 142, potassium 3.5, bicarb 22, BUN 8, creatinine 0.9, calcium of 8, phosphorus 2.5, magnesium 1.9, albumin 3, corrected calcium 8.8. Current Medications: The patient on include aspirin, ceftriaxone, Plavix, clonidine 0.2, Dilantin, Pepcid, thiamin. Assessment And Plan: 1. Acute kidney injury secondary to prerenal, recovered, resolved. 2. Proteinuria, nonnephrotic, could be secondary to hypertension with the presence of anemia. I am going to send for serum protein electrophoresis and we will follow up. 3. Hypertension, not controlled. The patient with a history of eclampsia before with the presence of hypokalemia, possibility of hyperaldosteronism. I am going to go ahead and send for aldosterone and plasma renin activity. We will send for urine potassium gradient, transtubular potassium gradient, and we will start the patient on Aldactone. I going to go ahead and increase clonidine to 0.[address] the patient on maintenance beta-arlene. We will follow up the patient. 4. Cerebrovascular accident. We will follow up with Neurology. time spend exam the patient face to face , placing order , reviewing the data of lab and radiology , discussing with the staff including nusing , discussing with other kurtz member including hospitalist and other lean process deployment consultant 45 min CHAY Voice ID: [id number] Report ID: [id number] SHANTANU
--- NOTE | 2021-02-09 18:53 | RAD REPORT ---
EXAM DESCRIPTION: Trace Single View02/09/2021 6:28 pm CLINICAL HISTORY: Device placement endotracheal tube placement IMPRESSION: An endotracheal tube has its tip at the lexus pointing to the right mainstem bronchus. It should be retracted approximately 2 centimeters
--- NOTE | 2021-02-09 21:00 | RAD REPORT ---
EXAM DESCRIPTION: CT - Head Brain W/Wo Con - 02/09/2021 8:32 pm CLINICAL HISTORY: CVA/alteration of consciousness COMPARISON: February 07, 2021 TECHNIQUE: Computed axial tomography of the head was obtained. Unenhanced and enhanced images obtain ed. 50 cc Isovue-[address] scans are performed using dose optimization technique as appropriate and may include automated exposure control or mA/KV adjustment according to patient size. FINDINGS: An intracranial bleed is not seen . The temporal horns of the lateral ventricles bilaterally remain dilated. The third, fourth and remain panda of the lateral ventricles are normal caliber. Low-density areas within the right and left cerebellum, right and left internal capsule, left basal g anglia, left external capsule, periventricular white matter bilaterally, left frontal lobe and clinical research assistant ior right frontal lobe are without significant change from the prior examination. No extra-axial fluid collection is noted. No abnormal enhancement seen Fluid within the sinuses/ mastoids is not seen. IMPRESSION: Bilateral hypodensities involving the cerebrum and cerebellum without significant change from the prior exam. I suspect this is secondary to a metabolic disturbance perhaps extrapontine mye linolysis. Infarction is another consideration. When the patient's condition permits MRI is recommend ed
--- NOTE | 2021-02-09 21:57 | CON ---
Date of Consultation: 02/07/2021 Reason For Consultation: Elevated troponin. History Of Present Illness: Ms. Ordoñez is a 40-year-old with no previous past medical history, came in with a seizure requiring intubation. We were asked to see her because of elevated troponin. Hist ory could not be obtained. The patient had been intubated. Past Medical History: Negative. Review of Systems: Negative. Social History: Negative. Family History: Noncontributory. Physical Examination: General: She was intubated. Vital Signs: Otherwise stable. Afebrile. HEENT: Negative. Neck: Supple. No bruit. Chest: Clear. Cardiac: Revealed a regular rhythm and rate. No murmurs, gallops, or rubs. Abdomen: Benign. Extremities: Revealed no clubbing, cyanosis, or edema. Diagnostic Data: Include an extremity venous study that was negative. She had a carotid Doppler fito t was negative. Chest x-ray was negative. CT scan showed a possible right internal capsule and left caudate stroke. Impression And Plan: 1.Seizure, new onset. 2.Elevated troponin. 3.History of hypertension. 4.Ventilatory support secondary to respiratory failure from status epilepticus. Dr. Stone is invo lved in the case. Echocardiogram will be ordered to rule out wall motion abnormalities. JOSHUA/SAHIL Voice ID: [id number] Report ID: [id number]
--- NOTE | 2021-02-09 22:04 | PN ---
Date of Progress Note: 02/08/2021 The patient had come in with seizure, status epilepticus requiring intubation for ventilatory support , elevated troponin, history of hypertension. Troponin I thought was secondary to demand ischemia fr om the seizure, which we see that very often. Echocardiogram was done showing left ventricular eject ion fraction of 60% with normal wall motion. No vegetation. Had mild mitral and tricuspid regurgita tion. We will sign off her case. This is not an acute coronary syndrome. I agree with present sumaya LEWIS/SAHIL Voice ID: [id number] Report ID: [id number]
[2021-02-10] MEDS ORDERED: D5W 1,000 ML IV ONE (00:31)
[2021-02-10] MEDS ORDERED: FOSPHENYTOIN PE 100 MG/2 ML VIAL ONE ×3 (00:31→17:57)
[2021-02-10] MEDS: D5W 1,000 ML IV SCH (00:33)
[2021-02-10] MEDS: FOSPHENYTOIN PE 100 MG/2 ML VIAL IV SCH ×3 (00:33→18:10)
[2021-02-10] MEDS ORDERED: LORazepam 2 MG/ML VIAL ONE (02:36)
[2021-02-10] MEDS: LORazepam 2 MG/ML VIAL IV PRN (02:54)
[2021-02-10] MEDS ORDERED: HYDROMORPHONE HCL 1 MG/ML INJ ONE ×8 (03:15→23:06)
[2021-02-10] MEDS: HYDROMORPHONE HCL 1 MG/ML INJ IV PRN ×8 (03:18→23:07)
[2021-02-10 04:52] LABS: Absolute Lymphocytes (CBC) 1.7 K/uL (0.7-4.9); Basophils % 0.9 % (0-1.3); Hematocrit 31.2 % (36.0-45.0); Lymphocytes % 20.3 % (15.3-44.8); MPV 8.6 fL (7.6-11.3)
[2021-02-10] MEDS: levETIRAcetam 1,000 MG in NA CHLORIDE 0.9% 100 ML IV SCH ×2 (05:10→18:10)
[2021-02-10 05:19] LABS: Albumin 2.9 g/dL (3.4-5.0); Bilirubin Total 0.5 mg/dL (0.2-1.0); Magnesium 1.9 mg/dL (1.8-2.4); Phosphorus 3.3 mg/dL (2.5-4.9); Potassium 3.2 mmol/L (3.5-5.1); Protein, Total 7.1 g/dL (6.4-8.2); Thyroid Stimulating Hormone 0.837 uIU/mL (0.360-3.740)
[2021-02-10] MEDS: carvediloL 12.5 MG TAB PO SCH (06:00)
--- NOTE | 2021-02-10 06:25 | P.PN ---
Subjective Date of Service: 02/10/21 Primary Care Provider: none Chief Complaint: Respiratory failure stroke Subjective: Other (patient remains intubated) Physical Examination - Vital Signs Temperature: 99.8 F Blood Pressure: 153/105 Pulse: 92 Respirations: 14 Pulse Ox (%): 100 - Studies Microbiology Data (last 24 hrs): 02/06/21 09:47 Cerebral Spinal Fluid Gram Stain - Final 02/06/21 09:47 Cerebral Spinal Fluid Culture & Sensitivity - Final No growth. Assessment & Plan Discharge Plan: Home Plan to discharge in: Greater than 2 days Physician Review Additional Text: COVID: negative Initial CT Head: COMPARISON: None TECHNIQUE: Computed axial tomography of the head was obtained. IV contrast was not requested. All CT scans are performed using dose optimization technique as appropriate and may include automated exposure control or mA/KV adjustment according to patient size. FINDINGS: An intracranial bleed is not seen . Subtle low-density area right internal capsule and left caudate The ventricles are normal in caliber. No extra-axial fluid collection is noted. Fluid within the sinuses/ mastoids is not seen. IMPRESSION: Subtle low-density areas right internal capsule and left caudate. These could be acute or chronic. Follow up CT Head: COMPARISON: 02/06/2021 TECHNIQUE: Axial CT of the head obtained from the skull apex to the skull base without contrast. This exam was performed according to our departmental dose-opt imization program, which includes automated exposure control, adjustment of the mA and/or kV according to patient size and/or use of iterative reconstruction technique. FINDINGS: No acute intracranial hemorrhage identified. Interval development of well-circumscribed hypodensities involving the anterior left centrum semiovale and the left posterior malcolm radiata. . Interval progression of hypodensities in the bilateral basal ganglia and bilateral cerebellum. Regions likely represent areas of cytotoxic edema. Interval distention involving the temporal horn of the lateral ventricles. No significant midline shift. The visualized paranasal sinuses and the mastoid air cells are relatively well aerated. No skull fracture identified. Visualized orbits and globes are unremarkable. Excellent visualization of NG tube. IMPRESSION: 1. Interval development of well-circumscribed hypodensities involving the anterior left centrum semiovale and the left posterior malcolm radiata. Interval progression of hypodensities in the bilateral basal ganglia and bilateral cerebellum. Regions likely represent areas of cytotoxic edema. These findings are concerning for acute or subacute infarction. MRI of the brain recommended. 2. Interval distention involving the temporal horn of the lateral ventricles. This may indicate developing communicating hydrocephalus. ECHO: MEASUREMENTS (cm) DIASTOLIC (NORMALS) SYSTOLIC (NORMALS) IVSd 1.2 (0.6-1.2) LA Diam 2.3 (1.9-4.0) LVEF 71% LVIDd 3.5 (3.5-5.7) LVIDs 2.1 (2.0-3.5) %FS 40% LVPWd 1.0 (0.6-1.2) Ao Diam 2.8 (2.0-3.7) 2 DIMENSIONAL ASSESSMENT: RIGHT ATRIUM: NORMAL LEFT ATRIUM: NORMAL RIGHT VENTRICLE: NORMAL LEFT VENTRICLE: NORMAL TRICUSPID VALVE: MITRAL VALVE: PULMONIC VALVE: NORMAL AORTIC VALVE: NORMAL PERICARDIAL EFFUSION: NONE AORTIC ROOT: NORMAL LEFT VENTRICULAR WALL MOTION: NORMAL DOPPLER/COLOR FLOW: SEE BELOW. COMMENTS: NORMAL LEFT VENTRICULAR EJECTION FRACTION > 60% WITH NORMAL WALL MOTION. MILD TRICUSPID AND MITRAL REGURGITATION. NO CLEAR VEGETATION IS SEEN ON THIS EXAM. KUB: COMPARISON: No comparisons FINDINGS: NG tube tip overlies the stomach. Right femoral line with tip overlying the L4 vertebral body. The bowel is relatively gasless and without evidence of obstruction. Mild scoliosis. IMPRESSION: Relatively gasless appearance of the abdomen which could be due to decompressed and/or fluid filled bowel. Though not excluded, an ileus or bowel obstruction considered less likely. . Carotid doppler: FINDINGS: Normal high resistance waveforms are noted in both external carotid arteries. The common carotid arteries and internal carotid arteries show normal low resistance waveforms. No significant plaque formation is seen. Peak systolic and end diastolic velocity values and the ICA/CCA ratios are in the non-hemodynamically significant range. Antegrade flow seen in both vertebral arteries. Velocity values and ratios were recorded and are retained in the patient's imaging records. IMPRESSION: No significant atherosclerotic changes noted. No evidence of a hemodynamically significant stenosis. Follow up CT Head 02/09/2021: COMPARISON: February 07, 2021 TECHNIQUE: Computed axial tomography of the head was obtained. Unenhanced and enhanced images obtained. 50 cc Isovue-[address] scans are performed using dose optimization technique as appropriate and may include automated exposure control or mA/KV adjustment according to patient size. FINDINGS: An intracranial bleed is not seen . The temporal horns of the lateral ventricles bilaterally remain dilated. The third, fourth and remainder of the lateral ventricles are normal caliber. Low-density areas within the right and left cerebellum, right and left internal capsule, left basal ganglia, left external capsule, periventricular white matter bilaterally, left frontal lobe and posterior right frontal lobe are without significant change from the prior examination. No extra-axial fluid collection is noted. No abnormal enhancement seen Fluid within the sinuses/ mastoids is not seen. IMPRESSION: Bilateral hypodensities involving the cerebrum and cerebellum without significant change from the prior exam. I suspect this is secondary to a metabolic disturbance perhaps extrapontine myelinolysis. Infarction is another consideration. When the patient's condition permits MRI is recommended Follow up CXR 02/10/2021: CLINICAL HISTORY: Device placement endotracheal tube placement IMPRESSION: Endotracheal tube has been retracted and is in good position. Follow up KUB 02/10/2021: CLINICAL HISTORY: Abdomen pain. FINDINGS: The bowel gas pattern is unremarkable. Right femoral catheter has its tip overlying L4. Nasogastric tube within the proximal stomach Physical exam: General: Remains intubated and sedated HEENT: Other (ET tube in place. OG tube in place) Neck: Supple Respiratory: Clear to auscultation bilaterally, Normal air movement Cardiovascular: Regular rate/rhythm, Normal S1 S2 Gastrointestinal: Soft. Nondistended. Musculoskeletal: No clubbing, No swelling Integumentary: No rashes Neurological: Patient is sedated. Lymphatics: No axilla or inguinal lymphadenopathy Impression: Status epilepticus likely related to recent substance abuse Acute respiratory failure Elevated Troponin likely ischemic demand HTN uncontrolled Acute renal failure Acute liver failure Bacteremia-Strep. pneumonia Ileus Plan: Status epilepticus likely related to recent substance abuse: Continue antibioticsKeppra and fosphenytoin. With neurology. Repeat CT scan shows bilateral hypodensities involving the cerebellum and cerebrum. There is no significant change from prior exam. No evidence of acute stroke. This is likely metabolic disturbance related to her use of substance abuse. Continue with current plan of care. Once the patient is extubated will need to get an MRI to further evaluate her condition. Case discussed with pulmonology. Continue to wean off ventilator. KUB shows improvement. Restart tube feeds. Dietary consulted to help with this. Will also start blood pressure medication to maintain blood pressure systolic around 150-170. Will start carvedilol and lisinopril. Will monitor and adjust appropriately. Case also discussed with nephrology. All in agreement with plan of care. Acute respiratory failure: Patient remains intubated. Continue with pulmonology recommendations to wean off. Elevated Troponin likely ischemic demand: Continue aspirin, Plavix. No plan for intervention. Echocardiogram shows normal ejection fraction. HTN uncontrolled: Case discussed with neurology, pulmonology and nephrology. Will start medication for blood pressure. Will start with carvedilol and lisinopril. Maintain blood pressure around 1 50-1 70 systolic then will adjust medication accordingly over the next several days. Acute renal failure: Renal function improving. Continue with nephrology recommendations. Acute liver failure: Liver function improved. Will monitor closely. Bacteremia-Strep. pneumonia: Continue Rocephin. Repeat blood cultures so far negative. Ileus: KUB improved and resolved. Will start tube feeds. Dietary consulted. We will monitor this closely. Hold feedings. Reposition of enteric tube. Continue with low intermitent suction. Keep NPO. Will discuss with Pulmonary/Neurology. Recheck KUB tomorrow. Will check hemoglobin hematocrit. DVT prophylaxis: Lovenox Code status: Full code Advanced care planning: Spoke with mother and yesterday. Continue with above plan of care. Time Spent Managing Pts Care (In Minutes): 55
--- NOTE | 2021-02-10 08:19 | RAD REPORT ---
[facility]14 [facility] CLINICAL HISTORY: Device placement endotracheal tube placement IMPRESSION: Endotracheal tube has been retracted and is in good position.
--- NOTE | 2021-02-10 08:20 | RAD REPORT ---
EXAM DESCRIPTION: RAD - Abdomen 1 View (KUB) - 02/10/2021 7:14 am CLINICAL HISTORY: Abdomen pain. FINDINGS: The bowel gas pattern is unremarkable. Right femoral catheter has its tip overlying L4. Nasogastric tube within the proximal stomach
[2021-02-10] MEDS: ASPIRIN EC 81 MG TAB PO SCH (08:35)
[2021-02-10] MEDS: CLOPIDOGREL 75 MG TABLET PO SCH (08:35)
[2021-02-10] MEDS ORDERED: THIAMINE 200 MG/2 ML INJ ONE (08:44)
[2021-02-10] MEDS ORDERED: NA CHLORIDE 0.9% 50 ML ONE (08:44)
[2021-02-10] MEDS ORDERED: CEFTRIAXONE 1000 MG/VIAL ONE (08:44)
[2021-02-10] MEDS ORDERED: FAMOTIDINE 20 MG/2 ML VIAL IV ONE ×2 (08:44→20:57)
[2021-02-10] MEDS: CEFTRIAXONE 1,000 MG in NA CHLORIDE 0.9% 50 ML IVPB SCH (08:45)
[2021-02-10] MEDS: FAMOTIDINE 20 MG/2 ML VIAL IV SCH ×2 (08:46→23:08)
[2021-02-10] MEDS: THIAMINE 200 MG/2 ML INJ IVP SCH (08:46)
[2021-02-10] MEDS: FOLIC ACID 1 MG in NA CHLORIDE 0.9% 50 ML IV SCH (08:48)
--- NOTE | 2021-02-10 12:40 | PN ---
Date of Progress Note: 02/10/2021 Subjective: The patient was admitted with acute kidney injury, acidosis secondary to poor perfusion, ATN, toxic ATN. The patient had drug use. The patient had hypertension and CVA. Physical Examination: Vital Signs: Blood pressure 169/100. Chest: Clear to auscultation. Heart: S1, S2. Regular. Abdomen: Soft, nontender. Extremity: No edema. Neuro: Opens eyes for pain. Laboratory Data: WBC 8.6, H and H 10.3/31.2. Sodium 142, potassium 3.2, bicarb 24, BUN 7, creatinin e 0.8, calcium 8.2, phosphorus 3.3, albumin 2.9. Corrected calcium is 9. Current Medications: The patient on include; 1.Ceftriaxone. 2.Aspirin. 3.Plavix. 4.Lovenox. 5.Carvedilol 12.5. 6.Clonidine 0.2. 7.Dilantin. 8.Keppra. 9.Breathing treatment. 10.D5. Assessment And Plan: 1.Acute kidney injury secondary to poor perfusion, ATN, toxic ATN, recovered, resolved. 2.Acidosis secondary to renal failure, lactic acidosis, status post bicarb drip. Off bicarb drip. We will monitor. 3.Hypernatremia secondary to third space and GI loss. Continue D5. 4.Hypokalemia. We will supplement. 5.Seizure as by primary. 6.Hypertension with positive family history. Workup is still pending. We will follow up. Continue current treatment. IVY/SAHIL Voice ID: [id number] Report ID: [id number]
[2021-02-10] MEDS ORDERED: D5.45NS W/KCL 20MEQ 0 ML IV ONE (12:53)
[2021-02-10] MEDS ORDERED: D5W 1,000 ML with POTASSIUM CL 20 MEQ IV SCH ×2 (13:00)
[2021-02-10] MEDS ORDERED: D5W IV SCH ×2 (13:30)
[2021-02-10] MEDS ORDERED: KCL IV SCH ×2 (13:30)
[2021-02-10] MEDS ORDERED: ENOXAPARIN 40 MG/0.4 ML SQ ONE (17:56)
[2021-02-10] MEDS ORDERED: carvediloL 6.25 MG TAB ONE (17:56)
[2021-02-10] MEDS ORDERED: carvediloL 6.25 MG TAB PO SCH (18:00)
[2021-02-10] MEDS: ENOXAPARIN 40 MG/0.4 ML SQ SCH (18:09)
[2021-02-10] MEDS: carvediloL 6.25 MG TAB PO SCH (18:10)
[2021-02-10] MEDS ORDERED: lisinopriL 10 MG TAB ONE (20:57)
[2021-02-10] MEDS: lisinopriL 10 MG TAB PO SCH (23:19)
[2021-02-11] MEDS ORDERED: FOSPHENYTOIN PE 100 MG/2 ML VIAL ONE ×3 (00:54→17:28)
[2021-02-11] MEDS: FOSPHENYTOIN PE 100 MG/2 ML VIAL IV SCH ×3 (00:57→17:42)
[2021-02-11] MEDS ORDERED: HYDROMORPHONE HCL 1 MG/ML INJ ONE ×4 (01:51→23:01)
[2021-02-11] MEDS: HYDROMORPHONE HCL 1 MG/ML INJ IV PRN ×5 (01:57→23:02)
[2021-02-11 04:31] LABS: Absolute Lymphocytes (CBC) 2.1 K/uL (0.7-4.9); Basophils % 0.4 % (0-1.3); Hematocrit 29.7 % (36.0-45.0); Lymphocytes % 22.3 % (15.3-44.8); MPV 8.7 fL (7.6-11.3); RBC Red Blood Cell Count 3.34 M/uL (3.86-4.86)
[2021-02-11 04:49] LABS: ALT/SGPT 164 U/L (12-78); AST/SGOT 56 U/L (15-37); Albumin 2.8 g/dL (3.4-5.0); Alkaline Phosphatase 122 U/L (45-117); BUN Blood Urea Nitrogen 11 mg/dL (7-18); Bicarbonate 26 mmol/L (21-32); Bilirubin Total 0.6 mg/dL (0.2-1.0); Glucose Level 110 mg/dL (74-106); Magnesium 2.1 mg/dL (1.8-2.4); Phosphorus 3.1 mg/dL (2.5-4.9); Potassium 3.1 mmol/L (3.5-5.1); Sodium Level 140 mmol/L (136-145)
[2021-02-11] MEDS: carvediloL 6.25 MG TAB PO SCH ×2 (05:24→17:42)
[2021-02-11] MEDS: levETIRAcetam 1,000 MG in NA CHLORIDE 0.9% 100 ML IV SCH ×2 (05:24→17:43)
--- NOTE | 2021-02-11 05:50 | P.PN ---
Subjective Date of Service: 02/11/21 Primary Care Provider: none Chief Complaint: Respiratory failure stroke Physical Examination - Vital Signs Temperature: 97.9 F Blood Pressure: 126/89 Pulse: 79 Respirations: 14 Pulse Ox (%): 100 - Studies Microbiology Data (last 24 hrs): 02/06/21 08:33 Blood - Blood Aerobic Blood Culture - Final Strep Pneumoniae Strep Pneumoniae#2 02/06/21 08:33 Blood - Blood Blood Culture Gram Stain - Final Assessment And Plan - Plan 1. Acute kidney injury secondary to poor perfusion, ATN, toxic ATN, recovered, resolved. 2. Acidosis secondary to renal failure, lactic acidosis, status post bicarb drip. Off bicarb drip. We will monitor. 3. Hypernatremia secondary to third space and GI loss. Continue D5. 4. Hypokalemia. We will supplement. 5. Seizure as by primary. 6. Hypertension with positive family history. Workup is still pending. We will follow up. Continue current treatment.
--- NOTE | 2021-02-11 06:14 | P.PN ---
Subjective Date of Service: 02/11/21 Primary Care Provider: none Chief Complaint: Respiratory failure stroke Subjective: Improving Physical Examination - Vital Signs Temperature: 97.9 F Blood Pressure: 126/89 Pulse: 79 Respirations: 14 Pulse Ox (%): 100 - Studies Microbiology Data (last 24 hrs): 02/06/21 08:33 Blood - Blood Aerobic Blood Culture - Final Strep Pneumoniae Strep Pneumoniae#2 02/06/21 08:33 Blood - Blood Blood Culture Gram Stain - Final Assessment & Plan Discharge Plan: Home Plan to discharge in: Greater than 2 days Physician Review Additional Text: COVID: negative Initial CT Head: COMPARISON: None TECHNIQUE: Computed axial tomography of the head was obtained. IV contrast was not requested. All CT scans are performed using dose optimization technique as appropriate and may include automated exposure control or mA/KV adjustment according to patient size. FINDINGS: An intracranial bleed is not seen . Subtle low-density area right internal capsule and left caudate The ventricles are normal in caliber. No extra-axial fluid collection is noted. Fluid within the sinuses/ mastoids is not seen. IMPRESSION: Subtle low-density areas right internal capsule and left caudate. These could be acute or chronic. Follow up CT Head: COMPARISON: 02/06/2021 TECHNIQUE: Axial CT of the head obtained from the skull apex to the skull base without contrast. This exam was performed according to our departmental dose- optimization program, which includes automated exposure control, adjustment of the mA and/or kV according to patient size and/or use of iterative reconstruction technique. FINDINGS: No acute intracranial hemorrhage identified. Interval development of well-circumscribed hypodensities involving the anterior left centrum semiovale and the left posterior malcolm radiata. . Interval progression of hypodensities in the bilateral basal ganglia and bilateral cerebellum. Regions likely represent areas of cytotoxic edema. Interval distention involving the temporal horn of the lateral ventricles. No significant midline shift. The visualized paranasal sinuses and the mastoid air cells are relatively well aerated. No skull fracture identified. Visualized orbits and globes are unremarkable. Excellent visualization of NG tube. IMPRESSION: 1. Interval development of well-circumscribed hypodensities involving the anterior left centrum semiovale and the left posterior malcolm radiata. Interval progression of hypodensities in the bilateral basal ganglia and bilateral cerebellum. Regions likely represent areas of cytotoxic edema. These findings are concerning for acute or subacute infarction. MRI of the brain recommended. 2. Interval distention involving the temporal horn of the lateral ventricles. This may indicate developing communicating hydrocephalus. ECHO: MEASUREMENTS (cm) DIASTOLIC (NORMALS) SYSTOLIC (NORMALS) IVSd 1.2 (0.6-1.2) LA Diam 2.3 (1.9-4.0) LVEF 71% LVIDd 3.5 (3.5-5.7) LVIDs 2.1 (2.0-3.5) %FS 40% LVPWd 1.0 (0.6-1.2) Ao Diam 2.8 (2.0-3.7) 2 DIMENSIONAL ASSESSMENT: RIGHT ATRIUM: NORMAL LEFT ATRIUM: NORMAL RIGHT VENTRICLE: NORMAL LEFT VENTRICLE: NORMAL TRICUSPID VALVE: MITRAL VALVE: PULMONIC VALVE: NORMAL AORTIC VALVE: NORMAL PERICARDIAL EFFUSION: NONE AORTIC ROOT: NORMAL LEFT VENTRICULAR WALL MOTION: NORMAL DOPPLER/COLOR FLOW: SEE BELOW. COMMENTS: NORMAL LEFT VENTRICULAR EJECTION FRACTION > 60% WITH NORMAL WALL MOTION. MILD TRICUSPID AND MITRAL REGURGITATION. NO CLEAR VEGETATION IS SEEN ON THIS EXAM. KUB: COMPARISON: No comparisons FINDINGS: NG tube tip overlies the stomach. Right femoral line with tip overlying the L4 vertebral body. The bowel is relatively gasless and without evidence of obstruction. Mild scoliosis. IMPRESSION: Relatively gasless appearance of the abdomen which could be due to decompressed and/or fluid filled bowel. Though not excluded, an ileus or bowel obstruction considered less likely. . Carotid doppler: FINDINGS: Normal high resistance waveforms are noted in both external carotid arteries. The common carotid arteries and internal carotid arteries show normal low resistance waveforms. No significant plaque formation is seen. Peak systolic and end diastolic velocity values and the ICA/CCA ratios are in the non-hemodynamically significant range. Antegrade flow seen in both vertebral arteries. Velocity values and ratios were recorded and are retained in the patient's imaging records. IMPRESSION: No significant atherosclerotic changes noted. No evidence of a hemodynamically significant stenosis. Follow up CT Head 02/09/2021: COMPARISON: February 07, 2021 TECHNIQUE: Computed axial tomography of the head was obtained. Unenhanced and enhanced images obtained. 50 cc Isovue-[address] scans are performed using dose optimization technique as appropriate and may include automated exposure control or mA/KV adjustment according to patient size. FINDINGS: An intracranial bleed is not seen . The temporal horns of the lateral ventricles bilaterally remain dilated. The third, fourth and remainder of the lateral ventricles are normal caliber. Low-density areas within the right and left cerebellum, right and left internal capsule, left basal ganglia, left external capsule, periventricular white matter bilaterally, left frontal lobe and posterior right frontal lobe are without significant change from the prior examination. No extra-axial fluid collection is noted. No abnormal enhancement seen Fluid within the sinuses/ mastoids is not seen. IMPRESSION: Bilateral hypodensities involving the cerebrum and cerebellum without significant change from the prior exam. I suspect this is secondary to a metabolic disturbance perhaps extrapontine myelinolysis. Infarction is another consideration. When the patient's condition permits MRI is recommended Follow up CXR 02/10/2021: CLINICAL HISTORY: Device placement endotracheal tube placement IMPRESSION: Endotracheal tube has been retracted and is in good position. Follow up KUB 02/10/2021: CLINICAL HISTORY: Abdomen pain. FINDINGS: The bowel gas pattern is unremarkable. Right femoral catheter has its tip overlying L4. Nasogastric tube within the proximal stomach Physical exam: General: Remains intubated and sedated HEENT: Other (ET tube in place. OG tube in place) Neck: Supple Respiratory: Clear to auscultation bilaterally, Normal air movement Cardiovascular: Regular rate/rhythm, Normal S1 S2 Gastrointestinal: Soft. Nondistended. Musculoskeletal: No clubbing, No swelling Integumentary: No rashes Neurological: Patient is sedated. Lymphatics: No axilla or inguinal lymphadenopathy Impression: Status epilepticus with Lonnie's paralysis on the right side likely related to recent substance abuse/metabolic disturbance Acute respiratory failure Elevated Troponin likely ischemic demand HTN uncontrolled Acute renal failure Acute liver failure Bacteremia-Strep. pneumonia Ileus Plan: Status epilepticus with Lonnie's paralysis on the right side likely related to recent substance abuse/metabolic disturbance: Patient has done well. Patient was to be extubated today. Patient self extubated per nurse. Patient on room air. Will monitor closely. Swallowing to be evaluated. If able to swallow then will proceed with oral intake. Will obtain stroke protocol MRI to further evaluate. Continue antibioticsKeppra and fosphenytoin. Repeat CT head showed bilateral hypodensities involving the cerebrum and cerebellum. This was unchanged from prior exam. This is likely metabolic related to recent substance abuse. Case discussed in detail with neurology. Blood pressure medication initiated. We will continue to monitor and adjust medication. Continue carvedilol and lisinopril. Case discussed with nephrology as well. We need to get physical therapy, Occupational Therapy and speech consulted to help with patient. Acute respiratory failure: Patient self extubated herself this morning. Maintain oxygen above 93%. Elevated Troponin likely ischemic demand: Continue aspirin, Plavix. No plan for intervention. Echocardiogram shows normal ejection fraction. HTN uncontrolled: Case discussed with neurology, pulmonology and nephrology. Continue with carvedilol 6.25 mg 1 pill twice daily and lisinopril 10 mg 1 pill twice daily. Will monitor and adjust medication appropriately. Acute renal failure: Renal function back to baseline. Continue with nephrology recommendations Acute liver failure: Liver function improved. Will monitor closely. Bacteremia-Strep. pneumonia: Continue Rocephin. Repeat blood cultures so far negative. Ileus: KUB improved and resolved. Will evaluate swallowing. If able to take oral intake well then will start nutrition. DVT prophylaxis: Lovenox Code status: Full code Advanced care planning: Spoke with mother and yesterday. Continue with above plan of care. Time Spent Managing Pts Care (In Minutes): 55
[2021-02-11] MEDS ORDERED: carvediloL 6.25 MG TAB ONE (06:42)
[2021-02-11] MEDS: CLOPIDOGREL 75 MG TABLET PO SCH (08:53)
[2021-02-11] MEDS: lisinopriL 10 MG TAB PO SCH ×3 (08:53→20:28)
[2021-02-11] MEDS: ASPIRIN EC 81 MG TAB PO SCH (08:53)
[2021-02-11] MEDS ORDERED: CEFTRIAXONE 1000 MG/VIAL ONE (09:36)
[2021-02-11] MEDS ORDERED: THIAMINE 200 MG/2 ML INJ ONE (09:36)
[2021-02-11] MEDS ORDERED: ENOXAPARIN 40 MG/0.4 ML SQ ONE (09:37)
[2021-02-11] MEDS ORDERED: FAMOTIDINE 20 MG/2 ML VIAL IV ONE ×2 (09:37→20:05)
[2021-02-11] MEDS ORDERED: NA CHLORIDE 0.9% 50 ML ONE (09:39)
[2021-02-11] MEDS: FOLIC ACID 1 MG in NA CHLORIDE 0.9% 50 ML IV SCH (09:42)
[2021-02-11] MEDS ORDERED: METOPROLOL TARTRATE 5 MG/5 ML INJ IV ONE (09:42)
[2021-02-11] MEDS: FAMOTIDINE 20 MG/2 ML VIAL IV SCH ×2 (09:43→20:28)
[2021-02-11] MEDS: ENOXAPARIN 40 MG/0.4 ML SQ SCH (09:43)
[2021-02-11] MEDS: CEFTRIAXONE 1,000 MG in NA CHLORIDE 0.9% 50 ML IVPB SCH (09:43)
[2021-02-11] MEDS: THIAMINE 200 MG/2 ML INJ IVP SCH (09:43)
[2021-02-11] MEDS: METOPROLOL TARTRATE 5 MG/5 ML INJ IV PRN ×2 (09:45→14:12)
[2021-02-11] MEDS ORDERED: lisinopriL 10 MG TAB ONE (12:26)
[2021-02-11] MEDS ORDERED: KCL 20 MEQ/100 mL IVPB 200 ML IV ONE (12:42)
[2021-02-11] MEDS: KCL 20 MEQ/100 mL IVPB 20 MEQ/100 ML BAG IV SCH ×2 (12:43→13:38)
--- NOTE | 2021-02-11 13:05 | PN ---
Date of Progress Note: 02/11/2021 Subjective: The patient was admitted with respiratory failure, acute kidney injury with severe acido sis secondary to CBD ingestion. The patient after hydration with bicarb drip, kidney function has be en improved. The patient did not require any dialysis. The patient had CVA on CT. Physical Examination: Vital Signs: Blood pressure 166/98, pulse of 106, afebrile. Chest: Clear to auscultation. Heart: S1, S2 regular. Abdomen: Soft, nontender. Extremities: No edema. Neuro: Alert. The patient follows commands. The patient self-extubated today. Laboratory Data: H and H 10.2/29.7. Sodium 140, potassium 3.1, bicarb 26, BUN 11, creatinine 0.7, c alcium 8.6, phosphorus 3.1, magnesium 2.1, albumin 2.8, corrected calcium is 9.4. Current Medications: The patient on include: 1.Aspirin. 2.Ceftriaxone. 3.Plavix. 4.Lovenox. 5.Carvedilol 6.25 b.i.d. 6.Lisinopril. 7.Tylenol. 8.Dilantin. 9.Keppra. 10.Breathing treatment. 11.Folic acid. Assessment And Plan: 1.Acute kidney injury secondary to prerenal toxic acute tubular necrosis, recovered, resolved. 2.Hypertension with hypokalemia suspicious of hyperaldosteronism. The patient had history of eclamp tish before waiting for workup plus marine activity and aldosterone. We will follow up. We will star t the patient on spironolactone, the patient will start p.o. We will continue current treatment. 3.Hypokalemia. We will supplement. Start spironolactone. Magnesium within normal limit. 4.Respiratory failure, resolved. 5.Seizure secondary to drug use. We will follow up with the primary. IVY/SAHIL Voice ID: [id number] Report ID: [id number]
[2021-02-11] MEDS ORDERED: LORazepam 2 MG/ML VIAL ONE (13:53)
[2021-02-11] MEDS ORDERED: HYDROCODONE/APAP 7.5/325 MG TAB PO PRN (13:55)
[2021-02-11] MEDS ORDERED: TRAMADOL HCL 50 MG TAB PO PRN (13:55)
[2021-02-11] MEDS ORDERED: METOPROLOL TARTRATE 5 MG/5 ML INJ IV STA (13:56)
[2021-02-11] MEDS: LORazepam 2 MG/ML VIAL IV PRN (14:12)
--- NOTE | 2021-02-11 14:15 | RAD REPORT ---
EXAM DESCRIPTION: RAD - Abdomen 1 View (KUB) - 02/10/2021 9:38 pm CLINICAL HISTORY: Check NGT placement COMPARISON: None. TECHNIQUE: XR ABDOMEN 1 VIEW (KUB) 02/10/2021 9:07 PM TYPE PHOTOGRAPHY SUPERVISOR FINDINGS: Bowel gas pattern is nonspecific. There are no abnormal radiopaque foreign bodies or abnor mal calcifications. Osseous structures are grossly unremarkable. NG tube tip is in the stomach. IMPRESSION: NG tube tip in the stomach. Electronically signed by: Wilmer Bauer MD 02/10/2021 11:05 PM TYPE PHOTOGRAPHY SUPERVISOR Due to temporary technical issues with the PACS/Fluency reporting system, reports are being signed by the in house radiologists without review as a courtesy to insure prompt reporting. The interpreting radiologist is fully responsible for the content of the report.
[2021-02-11] MEDS ORDERED: ONDANSETRON 4 MG/2 ML VIAL ONE (14:16)
[2021-02-11] MEDS ORDERED: HYDROMORPHONE HCL 2 MG/ML inj ONE (14:16)
[2021-02-11] MEDS ORDERED: HYDROMORPHONE HCL 1 MG/ML INJ IV ONE (16:00)
[2021-02-11] MEDS: D5W IV SCH ×2 (16:52)
[2021-02-11] MEDS: KCL IV SCH ×2 (16:52)
--- NOTE | 2021-02-11 16:56 | RAD REPORT ---
EXAM DESCRIPTION: MRI - MRA Head Wo Cont - 02/11/2021 4:23 pm CLINICAL HISTORY: CTA, possible trunk into seizure COMPARISON: MRI brain same date TECHNIQUE: Axial and coronal 3D [id number] image acquisition was performed. 3D rotational images were generated with source and reconstruction images reviewed. Horizontal and vertical axis rotation al views generated using MIP protocol. FINDINGS: Distal vertebral arteries and basilar artery show no focal abnormalities. Posterior cerebr al arteries show no significant disease. The bilateral internal carotid arteries without dissection, stenosis or acute finding. The bilateral A1 segments of the anterior cerebral arteries are narrowed a nd irregular. Slight irregular contour seen in the bilateral anterior cerebral arteries distal to the A1 segments. Only minimal luminal narrowing seen in the bilateral middle cerebral arteries. No aneurysm or vascular malformation. IMPRESSION: Irregular luminal narrowing changes in each anterior cerebral artery and minimal luminal changes in the bilateral middle cerebral arteries. Patient is relatively young for significant atherosclerotic disease. Vasculitis is possible etiology.
--- NOTE | 2021-02-11 16:59 | RAD REPORT ---
EXAM DESCRIPTION: MRI - MRA Neck W/Wo Cont - 02/11/2021 4:23 pm CLINICAL HISTORY: CVA like symptoms, drug induced seizure COMPARISON: MRA head same date, MRA brain same date TECHNIQUE: MR angiography of the cervical vasculature performed. Coronal imaging plane acquisition u tilized. A 19 MultiHance contrast volume was utilized. Coronal reformatted images were generated and reviewed. Vertical axis 3D rotational projections obtained using maximum intensity projection protoco l. FINDINGS: Aortic arch is bovine configuration with no origins stenoses. Vertebral arteries show no o rigin abnormalities. The bilateral common carotid and internal carotid arteries show no dissection, s tenosis, vasculitis or other acute finding. Codominant vertebral arteries also without significant or suspicious finding. Partially imaged subclavian arteries show no abnormalities. IMPRESSION: Negative contrast MRA neck examination.
[2021-02-11] MEDS ORDERED: lisinopriL 20 MG TAB ONE (20:05)
[2021-02-12] MEDS ORDERED: HYDROMORPHONE HCL 1 MG/ML INJ ONE ×5 (01:26→17:40)
[2021-02-12] MEDS ORDERED: FOSPHENYTOIN PE 100 MG/2 ML VIAL ONE ×3 (01:27→17:33)
[2021-02-12] MEDS: HYDROMORPHONE HCL 1 MG/ML INJ IV PRN ×5 (01:28→17:38)
[2021-02-12] MEDS: FOSPHENYTOIN PE 100 MG/2 ML VIAL IV SCH ×3 (01:28→17:37)
[2021-02-12] MEDS: levETIRAcetam 1,000 MG in NA CHLORIDE 0.9% 100 ML IV SCH ×2 (05:30→17:37)
[2021-02-12] MEDS: carvediloL 6.25 MG TAB PO SCH (05:34)
[2021-02-12 06:08] LABS: Albumin 3.1 g/dL (3.4-5.0); BUN Blood Urea Nitrogen 13 mg/dL (7-18); Bicarbonate 26 mmol/L (21-32); Glucose Level 91 mg/dL (74-106); Magnesium 2.1 mg/dL (1.8-2.4); Phosphorus 2.8 mg/dL (2.5-4.9); Potassium 3.3 mmol/L (3.5-5.1); Sodium Level 142 mmol/L (136-145)
--- NOTE | 2021-02-12 06:10 | P.PN ---
Subjective Date of Service: 02/12/21 Primary Care Provider: none Chief Complaint: Respiratory failure stroke Subjective: Other (Patient more alert today.) Physical Examination - Vital Signs Temperature: 98.1 F Blood Pressure: 142/94 Pulse: 101 Respirations: 16 Pulse Ox (%): 99 - Studies Microbiology Data (last 24 hrs): 02/06/21 08:25 Blood - Blood Aerobic Blood Culture - Final No growth in 5 days. 02/06/21 08:25 Blood - Blood Anaerobic Blood Culture - Final No growth in 5 days. 02/06/21 08:33 Blood - Blood Aerobic Blood Culture - Final Strep Pneumoniae Strep Pneumoniae#2 02/06/21 08:33 Blood - Blood Blood Culture Gram Stain - Final 02/06/21 08:33 Blood - Blood Anaerobic Blood Culture - Final No growth in 5 days. Assessment & Plan Discharge Plan: Home Plan to discharge in: Greater than 2 days Physician Review Additional Text: COVID: negative Initial CT Head: COMPARISON: None TECHNIQUE: Computed axial tomography of the head was obtained. IV contrast was not requested. All CT scans are performed using dose optimization technique as appropriate and may include automated exposure control or mA/KV adjustment according to patient size. FINDINGS: An intracranial bleed is not seen . Subtle low-density area right internal capsule and left caudate The ventricles are normal in caliber. No extra-axial fluid collection is noted. Fluid within the sinuses/ mastoids is not seen. IMPRESSION: Subtle low-density areas right internal capsule and left caudate. These could be acute or chronic. Follow up CT Head: COMPARISON: 02/06/2021 TECHNIQUE: Axial CT of the head obtained from the skull apex to the skull base without contrast. This exam was performed according to our departmental dose-optimization program, which includes automated exposure control, adjustment of the mA and/or kV according to patient size and/or use of iterative reconstruction technique. FINDINGS: No acute intracranial hemorrhage identified. Interval development of well-circumscribed hypodensities involving the anterior left centrum semiovale and the left posterior malcolm radiata. . Interval progression of hypodensities in the bilateral basal ganglia and bilateral cerebellum. Regions likely represent areas of cytotoxic edema. Interval distention involving the temporal horn of the lateral ventricles. No significant midline shift. The visualized paranasal sinuses and the mastoid air cells are relatively well aerated. No skull fracture identified. Visualized orbits and globes are unremarkable. Excellent visualization of NG tube. IMPRESSION: 1. Interval development of well-circumscribed hypodensities involving the anterior left centrum semiovale and the left posterior malcolm radiata. Interval progression of hypodensities in the bilateral basal ganglia and bilateral cerebellum. Regions likely represent areas of cytotoxic edema. These findings are concerning for acute or subacute infarction. MRI of the brain recommended. 2. Interval distention involving the temporal horn of the lateral ventricles. This may indicate developing communicating hydrocephalus. ECHO: MEASUREMENTS (cm) DIASTOLIC (NORMALS) SYSTOLIC (NORMALS) IVSd 1.2 (0.6-1.2) LA Diam 2.3 (1.9-4.0) LVEF 71% LVIDd 3.5 (3.5-5.7) LVIDs 2.1 (2.0-3.5) %FS 40% LVPWd 1.0 (0.6-1.2) Ao Diam 2.8 (2.0-3.7) 2 DIMENSIONAL ASSESSMENT: RIGHT ATRIUM: NORMAL LEFT ATRIUM: NORMAL RIGHT VENTRICLE: NORMAL LEFT VENTRICLE: NORMAL TRICUSPID VALVE: MITRAL VALVE: PULMONIC VALVE: NORMAL AORTIC VALVE: NORMAL PERICARDIAL EFFUSION: NONE AORTIC ROOT: NORMAL LEFT VENTRICULAR WALL MOTION: NORMAL DOPPLER/COLOR FLOW: SEE BELOW. COMMENTS: NORMAL LEFT VENTRICULAR EJECTION FRACTION > 60% WITH NORMAL WALL MOTION. MILD TRICUSPID AND MITRAL REGURGITATION. NO CLEAR VEGETATION IS SEEN ON THIS EXAM. KUB: COMPARISON: No comparisons FINDINGS: NG tube tip overlies the stomach. Right femoral line with tip overlying the L4 vertebral body. The bowel is relatively gasless and without evidence of obstruction. Mild scoliosis. IMPRESSION: Relatively gasless appearance of the abdomen which could be due to decompressed and/or fluid filled bowel. Though not excluded, an ileus or bowel obstruction considered less likely. . Carotid doppler: FINDINGS: Normal high resistance waveforms are noted in both external carotid arteries. The common carotid arteries and internal carotid arteries show normal low resistance waveforms. No significant plaque formation is seen. Peak systolic and end diastolic velocity values and the ICA/CCA ratios are in the non-hemodynamically significant range. Antegrade flow seen in both vertebral arteries. Velocity values and ratios were recorded and are retained in the patient's imaging records. IMPRESSION: No significant atherosclerotic changes noted. No evidence of a hemodynamically significant stenosis. Follow up CT Head 02/09/2021: COMPARISON: February 07, 2021 TECHNIQUE: Computed axial tomography of the head was obtained. Unenhanced and enhanced images obtained. 50 cc Isovue-[address] scans are performed using dose optimization technique as appropriate and may include automated exposure control or mA/KV adjustment according to patient size. FINDINGS: An intracranial bleed is not seen . The temporal horns of the lateral ventricles bilaterally remain dilated. The third, fourth and remainder of the lateral ventricles are normal caliber. Low-density areas within the right and left cerebellum, right and left internal capsule, left basal ganglia, left external capsule, periventricular white matter bilaterally, left frontal lobe and posterior right frontal lobe are without significant change from the prior examination. No extra-axial fluid collection is noted. No abnormal enhancement seen Fluid within the sinuses/ mastoids is not seen. IMPRESSION: Bilateral hypodensities involving the cerebrum and cerebellum without significant change from the prior exam. I suspect this is secondary to a metabolic disturbance perhaps extrapontine myelinolysis. Infarction is another consideration. When the patient's condition permits MRI is recommended Follow up CXR 02/10/2021: CLINICAL HISTORY: Device placement endotracheal tube placement IMPRESSION: Endotracheal tube has been retracted and is in good position. Follow up KUB 02/10/2021: CLINICAL HISTORY: Abdomen pain. FINDINGS: The bowel gas pattern is unremarkable. Right femoral catheter has its tip overlying L4. Nasogastric tube within the proximal stomach MRI Brain: FINDINGS: No intracranial hemorrhage is present. No mass effect, diffuse cerebral edema or shift of midline structures. No cerebral sulcal effacement or basilar cistern effacement. Diffusion-weighted imaging shows numerous small to medium sized areas of abnormal diffusion throughout the cerebral hemispheres and in the basal ganglia. There is symmetric abnormal diffusion signal along the medial aspects of the temporal lobes coursing toward the splenium of the corpus callosum. There is less intense diffusion signal abnormality in each cerebellar hemisphere, also symmetric. These areas have hypointense T1 signal. There is corresponding diminished signal on ADC mapping sequence. No brainstem involvement. Lesions are hyperintense on T2/IR sequencing with postcontrast imaging showing a peripheral enhancement pattern in the larger symmetric lesions and some of the larger asymmetric cerebral lesions. The symmetric lesions in the medial temporal lobes do not clearly enhance. Symmetric basal ganglia foci are present. A few lesions in the periventricular white matter left frontal lobe are oriented perpendicular to the lateral ventricle. An acute cortical based infarction is not seen. No extra-axial fluid collections. Che matter- white matter junction is preserved. Signal voids are seen as a normal finding in the major intracranial vessels. No venous sinus thrombosis. No globe or orbital content abnormality. Mastoid air cells and paranasal sinuses are clear. Available history indicates chronic recreational drug usage, possibly psychoactive herb called Kratom. Findings are believed to be constellation of acute and chronic changes related to the recreational drug use as well as changes related to prolonged seizure activity. Many of the smaller non symmetrical cerebral lesions are sequela of acute infarction. The nonenhancing medial temporal lobe changes may be related to localized anoxia from the prolonged seizure. The enhancing symmetrical cerebellum and basal ganglia lesions as well as the asymmetric enhancing cerebral lesions are probably chronic changes related to a metabolic process, possibly the recreational drug. IMPRESSION: Numerous areas of abnormal signal intensity and enhancement scattered throughout the cerebral hemispheres, basal ganglia and cerebellum with both symmetric and non symmetric distribution patterns. The smaller nonenhancing cerebral lesions are probably acute CVA with the medial temporal lobe symmetric signal abnormalities related to anoxic insult from the status epilepticus. The larger, symmetric cerebellum and basal ganglia lesions and the non symmetric larger enhancing lesions are favored to be chronic sequela of the patient's recreational drug usage. Outside consultation is being sought and an addendum will be issued if any additional insight can be provided. MRA Brain: COMPARISON: MRI brain same date TECHNIQUE: Axial and coronal 3D [id number] image acquisition was performed. 3D rotational images were generated with source and reconstruction images reviewed. Horizontal and vertical axis rotational views generated using MIP protocol. FINDINGS: Distal vertebral arteries and basilar artery show no focal abnormalities. Posterior cerebral arteries show no significant disease. The bilateral internal carotid arteries without dissection, stenosis or acute finding. The bilateral A1 segments of the anterior cerebral arteries are narrowed and irregular. Slight irregular contour seen in the bilateral anterior cerebral arteries distal to the A1 segments. Only minimal luminal narrowing seen in the bilateral middle cerebral arteries. No aneurysm or vascular malformation. IMPRESSION: Irregular luminal narrowing changes in each anterior cerebral artery and minimal luminal changes in the bilateral middle cerebral arteries. Patient is relatively young for significant atherosclerotic disease. Vasculitis is possible etiology. MRA Neck: COMPARISON: MRA head same date, MRA brain same date TECHNIQUE: MR angiography of the cervical vasculature performed. Coronal imaging plane acquisition utilized. A 19 MultiHance contrast volume was utilized. Coronal reformatted images were generated and reviewed. Vertical axis 3D rotational projections obtained using maximum intensity projection protocol. FINDINGS: Aortic arch is bovine configuration with no origins stenoses. Vertebral arteries show no origin abnormalities. The bilateral common carotid and internal carotid arteries show no dissection, stenosis, vasculitis or other acute finding. Codominant vertebral arteries also without significant or suspicious finding. Partially imaged subclavian arteries show no abnormalities. IMPRESSION: Negative contrast MRA neck examination. Physical exam: General: Patient more alert and appropriate today. HEENT: Neck supple Respiratory: Clear to auscultation bilaterally, Normal air movement Cardiovascular: Regular rate/rhythm, Normal S1 S2 Gastrointestinal: Soft. Nondistended. Musculoskeletal: No clubbing, No swelling Integumentary: No rashes Neurological: Weakness to the right side still noted Lymphatics: No axilla or inguinal lymphadenopathy Impression: Status epilepticus with Lonnie's paralysis on the right side likely related to recent substance abuse/metabolic disturbance with abnormal MRI brain findings likely related to substance abuse Acute respiratory failure Elevated Troponin likely ischemic demand HTN uncontrolled Acute renal failure Acute liver failure Bacteremia-Strep. pneumonia Ileus Plan: Status epilepticus with Lonnie's paralysis on the right side likely related to recent substance abuse/metabolic disturbance with abnormal MRI brain findings likely related to substance abuse.: Patient doing well at this time. Patient more alert. Still with weakness to the right side. MRI reviewed with neurology and radiology yesterday. MRI showed Numerous areas of abnormal signal intensity and enhancement scattered throughout the cerebral hemispheres, basal ganglia and cerebellum with both symmetric and non symmetric distribution patterns. The smaller nonenhancing cerebral lesions are probably acute CVA with the medial temporal lobe symmetric signal abnormalities related to anoxic insult from the status epilepticus. The larger, symmetric cerebellum and basal ganglia lesions and the non symmetric larger enhancing lesions are favored to be chronic sequela of the patient's recreational drug usage. Outside consultation is being sought and an addendum will be issued if any additional insight can be provided. Await final analysis. Continue antiseizure medicationKeppra and fosphenytoin. Will discuss with neurology about changing over to oral medication. Continue physical therapy and Occupational Therapy. Blood pressure still elevated. Will increase carvedilol. Continue lisinopril. Will add Norvasc. Anticipate home in the next 2 to 3 days once patient is safe to go home. Acute respiratory failure: Patient remains on IV Rocephin. Patient doing well after extubation. Elevated Troponin likely ischemic demand: Continue aspirin and Plavix. Will discuss with neurology about the possibility of discontinuing Plavix. Echocardiogram shows normal ejection fraction. HTN uncontrolled: Case discussed with neurology, pulmonology and nephrology. Will increase carvedilol to 25 mg 1 pill twice daily. Continue lisinopril 20 mg 1 pill twice daily. We will add Norvasc 5 mg 1 pill twice daily. Acute renal failure: Renal function back to baseline. Continue with nephrology recommendations Acute liver failure: Liver function improved. Will monitor closely. Bacteremia-Strep. pneumonia: Continue Rocephin. Repeat blood cultures so far negative. Will discuss with pulmonology about switching over to oral me dication. Ileus: This has resolved. Continue with oral nutrition. DVT prophylaxis: Lovenox Code status: Full code Advanced care planning: Spoke with mother and yesterday. Continue with above plan of care. Time Spent Managing Pts Care (In Minutes): 55
--- NOTE | 2021-02-12 07:23 | P.PN ---
Subjective Date of Service: 02/13/21 Primary Care Provider: none Chief Complaint: Respiratory failure stroke Subjective: Other (No c/o SOB.) Physical Examination - Vital Signs Temperature: 98.1 F Blood Pressure: 142/94 Pulse: 101 Respirations: 16 Pulse Ox (%): 99 - Physical Exam General: Other (appears as her stated age) HEENT: Atraumatic, Normocephalic Neck: Supple Respiratory: Other (symmetric chest expansion) Cardiovascular: No rubs, No murmurs Gastrointestinal: Soft and benign, No guarding Musculoskeletal: No clubbing Integumentary: No warmth Neurological: Normal speech, Normal tone Urinary: Other (no bladder distention) External genitalia: Deferred Rectal: Deferred - Studies Microbiology Data (last 24 hrs): 02/06/21 08:25 Blood - Blood Aerobic Blood Culture - Final No growth in 5 days. 02/06/21 08:25 Blood - Blood Anaerobic Blood Culture - Final No growth in 5 days. 02/06/21 08:33 Blood - Blood Aerobic Blood Culture - Final Strep Pneumoniae Strep Pneumoniae#2 02/06/21 08:33 Blood - Blood Blood Culture Gram Stain - Final 02/06/21 08:33 Blood - Blood Anaerobic Blood Culture - Final No growth in 5 days. Assessment And Plan - Plan # KELLEY 2/2 prerenal state/ATN Resolved [place] po fluid intake Dc albarado when more up and about Monitor renal panel # Htn BP above goal BP meds adjusted # Status epilepticus 2/2 illicit rx use +R sided weakness Head MRI w/ areas of ischemia that's likely seizure related; probable acute CVA. On anti-seizure meds Per Neurology PT/OT # Strep pneumo bactreremia Abx per primary team # Acute liver failure Improved, monitor LFT # Ileus Resolved Feeding tube removed Encourage po intake # Hypokalemia Improving Encourage po intake KCl suppl prn Cont natalee # Dispo Unfunded, dc plan ongoing
--- NOTE | 2021-02-12 08:07 | RAD REPORT ---
EXAM DESCRIPTION: MRI - Brain W/Wo Cont - 02/11/2021 4:23 pm CLINICAL HISTORY: Evaluate for CVA vs drug related/Seizure COMPARISON: MRA Head Wo Cont dated 02/11/2021 TECHNIQUE: Sagittal and axial T1-weighted images were obtained. Axial PD/heavily T2-weighted and T2- FLAIR images were obtained along with axial DWI/ADC mapping sequences. Coronal heavily T2 weighted s equence obtained. Axial and coronal post-contrast T1-weighted images were also obtained. A 19 ml Mul tihance contrast following utilized. FINDINGS: No intracranial hemorrhage is present. No mass effect, diffuse cerebral edema or shift of midline structures. No cerebral sulcal effacement or basilar cistern effacement. Diffusion-weighted imaging shows numerous small to medium sized areas of abnormal diffusion throughou t the cerebral hemispheres and in the basal ganglia. There is symmetric abnormal diffusion signal rubén ng the medial aspects of the temporal lobes coursing toward the splenium of the corpus callosum. Ther e is less intense diffusion signal abnormality in each cerebellar hemisphere, also symmetric. These a reas have hypointense T1 signal. There is corresponding diminished signal on ADC mapping sequence. No brainstem involvement. Lesions are hyperintense on T2/IR sequencing with postcontrast imaging show ing a peripheral enhancement pattern in the larger symmetric lesions and some of the larger asymmetri c cerebral lesions. The symmetric lesions in the medial temporal lobes do not clearly enhance. Symmet ileana basal ganglia foci are present. A few lesions in the periventricular white matter left frontal lo be are oriented perpendicular to the lateral ventricle. An acute cortical based infarction is not seen. No extra-axial fluid collections. Che matter- white matter junction is preserved. Signal voids are seen as a normal finding in the major intracranial ves sels. No venous sinus thrombosis. No globe or orbital content abnormality. Mastoid air cells and paranasal sinuses are clear. Available history indicates chronic recreational drug usage, possibly psychoactive herb called Kratom . Findings are believed to be constellation of acute and chronic changes related to the recreational drug use as well as changes related to prolonged seizure activity. Many of the smaller non symmetrica l cerebral lesions are sequela of acute infarction. The nonenhancing medial temporal lobe changes may be related to localized anoxia from the prolonged seizure. The enhancing symmetrical cerebellum and basal ganglia lesions as well as the asymmetric enhancing cerebral lesions are probably chronic lloyd es related to a metabolic process, possibly the recreational drug. IMPRESSION: Numerous areas of abnormal signal intensity and enhancement scattered throughout the cer ebral hemispheres, basal ganglia and cerebellum with both symmetric and non symmetric distribution pa tterns. The smaller nonenhancing cerebral lesions are probably acute CVA with the medial temporal lobe symmet ileana signal abnormalities related to anoxic insult from the status epilepticus. The larger, symmetric cerebellum and basal ganglia lesions and the non symmetric larger enhancing lesions are favored to be chronic sequela of the patient's recreational drug usage. Outside consultation is being sought and an addendum will be issued if any additional insight can be provided.
[2021-02-12] MEDS ORDERED: CLOPIDOGREL 75 MG TABLET ONE (08:49)
[2021-02-12] MEDS ORDERED: CEFTRIAXONE 1000 MG/VIAL ONE (08:49)
[2021-02-12] MEDS ORDERED: ASPIRIN EC 81 MG TAB PO ONE (08:49)
[2021-02-12] MEDS ORDERED: lisinopriL 20 MG TAB ONE ×2 (08:49→21:32)
[2021-02-12] MEDS ORDERED: ENOXAPARIN 40 MG/0.4 ML SQ ONE (08:50)
[2021-02-12] MEDS ORDERED: FAMOTIDINE 20 MG TAB ONE ×2 (08:50→21:32)
[2021-02-12] MEDS ORDERED: NA CHLORIDE 0.9% 50 ML ONE (08:51)
[2021-02-12] MEDS: THIAMINE 200 MG/2 ML INJ IVP SCH (09:00)
[2021-02-12] MEDS ORDERED: SPIRONOLACTONE 25 MG TABLET ONE (09:00)
[2021-02-12] MEDS: lisinopriL 10 MG TAB PO SCH ×2 (09:00→21:00)
[2021-02-12] MEDS ORDERED: THIAMINE HCL 100 MG TABLET ONE (09:01)
[2021-02-12] MEDS: SPIRONOLACTONE 25 MG TABLET PO SCH (09:11)
[2021-02-12] MEDS: ASPIRIN EC 81 MG TAB PO SCH (09:12)
[2021-02-12] MEDS: FOLIC ACID 1 MG in NA CHLORIDE 0.9% 50 ML IV SCH (09:12)
[2021-02-12] MEDS: ENOXAPARIN 40 MG/0.4 ML SQ SCH (09:13)
[2021-02-12] MEDS: CLOPIDOGREL 75 MG TABLET PO SCH (09:13)
[2021-02-12] MEDS: CEFTRIAXONE 1,000 MG in NA CHLORIDE 0.9% 50 ML IVPB SCH (09:14)
[2021-02-12] MEDS ORDERED: FAMOTIDINE 20 MG/2 ML VIAL IV ONE (09:32)
[2021-02-12] MEDS: FAMOTIDINE 20 MG/2 ML VIAL IV SCH (09:32)
[2021-02-12] MEDS ORDERED: METOPROLOL TARTRATE 5 MG/5 ML INJ IV ONE ×2 (10:46→15:42)
[2021-02-12] MEDS: METOPROLOL TARTRATE 5 MG/5 ML INJ IV PRN ×2 (10:47→15:47)
[2021-02-12] MEDS: D5W IV SCH ×2 (12:04)
[2021-02-12] MEDS: KCL IV SCH ×2 (12:04)
--- NOTE | 2021-02-12 20:16 | PN ---
Subjective: Ms. Delgadillo is actually extubated, in bed, awake. She is able to track with her eyes and speak, although slow to respond to questions. She moves the left side greater than the right. She h as uncle and one of the relative in the room. She denies any pain or any complaints. Objective: Vital Signs: Blood pressure elevated to 192/121, pulse 93, respiratory rate 16, temperat ure 98.1, oxygen saturation 99%. General: Ms. Delgadillo is noted resting in bed, more movement in the left and right upper extremity. Sh laz is able to show a thumbs-up sign on the left side and slowly moved the feet to instruction, but aga in she is responding to questions. She appears tangential, slow to respond and she did say the names of her daughter and son properly and correctly, actually she did not know her location when I asked where she was. Laboratory Studies: Her WBCs are normal at 9.6, hemoglobin 10.2. Her chemistries show low potassium of 3.3, chloride of 109, albumin 3.1. Her Keppra level from the 6th was 14.9 and phenytoin level fr om the 6th was 17. Her brain MRI done yesterday showed extensive changes throughout with diffusion w eighted imaging showing numerous small to medium sized areas of abnormal diffusion in the cerebral he mispheres and basal ganglia. Symmetric abnormal diffusion signal along the medial aspects of the tem poral lobe towards splenium of the corpus callosum. There was less intense diffuse signal abnormalit y in the cerebellar hemispheres and they were symmetric as well. There were also areas of hypodense T1 signal in those areas showing the ischemic event. Brainstem appeared largely spared. There were lesions involving the medial aspect of the temporal lobe as noted. The etiology for these events is unclear. However, the patient does have a history of status epilepticus with around 3 hours of seizi ng and a long history of using psychoactive herb called Kratom, but it is unknown what this does to h er brain in terms of potentially resulting in anoxic or ischemic events. Anyway, the impression was there were acute, subacute and chronic changes throughout the brain left, right and anterior-posterio r. Her magnetic resonance angiogram did show irregular luminal narrowing in each anterior cerebral a rtery. Minimal narrowing in the bilateral middle cerebral arteries. The worry was of a potential va sculitis. MRA of the neck identified no significant abnormalities. Assessment: Ms. Ordoñez is a 40-year-old patient with improving encephalopathy, status post status ep ilepticus with extensive DOWNSTAIRS MAID changes in the white matter and subcortical changes perhaps from prolong ed anoxic injury to the brain during seizure, superimposed on a chronic use of a psychoactive drugs, which may itself has impacted brain function. However, despite these changes, the patient actually i s recovering to the point that she can respond, although slowly and tangentially. She moves the left side greater than the right including upper and lower extremities. Plan: 1.She may require extensive physical, speech and occupational therapy. 2.Continue antiepileptic medications including the Keppra and phenytoin. 3.DVT prophylaxis. 4.Folic acid as indicated. 5.Her blood pressure is controlled and hypertensive medications are to be optimized. 6.Continue with thiamine and folic acid as well. 7.If she is an appropriate candidate, she may be admitted to the inpatient rehabilitation unit for a ggressive physical, occupational, and speech therapy. GEORGE/SAHIL Voice ID: [id number] Report ID: [id number]
[2021-02-12] MEDS ORDERED: AMLODIPINE 5 MG TAB ONE (21:32)
[2021-02-12] MEDS ORDERED: carvediloL 25 MG TAB ONE (21:39)
[2021-02-12] MEDS: AMLODIPINE 5 MG TAB PO SCH (22:01)
[2021-02-12] MEDS: carvediloL 25 MG TAB PO SCH (22:02)
[2021-02-12] MEDS: FAMOTIDINE 20 MG TAB PO SCH (22:02)
[2021-02-13] MEDS ORDERED: METOPROLOL TARTRATE 5 MG/5 ML INJ IV ONE ×3 (00:27→23:27)
[2021-02-13] MEDS ORDERED: FOSPHENYTOIN PE 100 MG/2 ML VIAL ONE ×2 (00:30→06:54)
[2021-02-13] MEDS: FOSPHENYTOIN PE 100 MG/2 ML VIAL IV SCH ×2 (00:32→08:27)
[2021-02-13] MEDS: METOPROLOL TARTRATE 5 MG/5 ML INJ IV PRN ×2 (00:32→23:30)
[2021-02-13] MEDS: HYDROMORPHONE HCL 1 MG/ML INJ IV PRN ×5 (00:57→23:31)
[2021-02-13] MEDS ORDERED: HYDROMORPHONE HCL 1 MG/ML INJ ONE ×5 (00:57→23:27)
[2021-02-13] MEDS ORDERED: METOPROLOL TARTRATE 5 MG/5 ML INJ IV STA (02:36)
[2021-02-13] MEDS: levETIRAcetam 1,000 MG in NA CHLORIDE 0.9% 100 ML IV SCH (05:48)
[2021-02-13 05:58] LABS: BUN Blood Urea Nitrogen 8 mg/dL (7-18); Bicarbonate 26 mmol/L (21-32); Glucose Level 96 mg/dL (74-106); Magnesium 2.1 mg/dL (1.8-2.4); Phosphorus 2.9 mg/dL (2.5-4.9); Potassium 3.4 mmol/L (3.5-5.1); Sodium Level 141 mmol/L (136-145)
--- NOTE | 2021-02-13 06:03 | P.PN ---
Subjective Date of Service: 02/13/21 Primary Care Provider: none Chief Complaint: Respiratory failure stroke Subjective: Improving Physical Examination - Vital Signs Temperature: 98.0 F Blood Pressure: 149/96 Pulse: 65 Respirations: 17 Pulse Ox (%): 100 Assessment & Plan Discharge Plan: Home Plan to discharge in: 48 Hours Physician Review Additional Text: COVID: negative Initial CT Head: COMPARISON: None TECHNIQUE: Computed axial tomography of the head was obtained. IV contrast was not requested. All CT scans are performed using dose optimization technique as appropriate and may include automated exposure control or mA/KV adjustment according to patient size. FINDINGS: An intracranial bleed is not seen . Subtle low-density area right internal capsule and left caudate The ventricles are normal in caliber. No extra-axial fluid collection is noted. Fluid within the sinuses/ mastoids is not seen. IMPRESSION: Subtle low-density areas right internal capsule and left caudate. These could be acute or chronic. Follow up CT Head: COMPARISON: 02/06/2021 TECHNIQUE: Axial CT of the head obtained from the skull apex to the skull base without contrast. This exam was performed according to our departmental dose- optimization program, which includes automated exposure control, adjustment of the mA and/or kV according to patient size and/or use of iterative reconstruction technique. FINDINGS: No acute intracranial hemorrhage identified. Interval development of well-circumscribed hypodensities involving the anterior left centrum semiovale and the left posterior malcolm radiata. . Interval progression of hypodensities in the bilateral basal ganglia and bilateral cerebellum. Regions likely represent areas of cytotoxic edema. Interval distention involving the temporal horn of the lateral ventricles. No significant midline shift. The visualized paranasal sinuses and the mastoid air cells are relatively well aerated. No skull fracture identified. Visualized orbits and globes are unremarkable. Excellent visualization of NG tube. IMPRESSION: 1. Interval development of well-circumscribed hypodensities involving the anterior left centrum semiovale and the left posterior malcolm radiata. Interval progression of hypodensities in the bilateral basal ganglia and bilateral cerebellum. Regions likely represent areas of cytotoxic edema. These findings are concerning for acute or subacute infarction. MRI of the brain recommended. 2. Interval distention involving the temporal horn of the lateral ventricles. This may indicate developing communicating hydrocephalus. ECHO: MEASUREMENTS (cm) DIASTOLIC (NORMALS) SYSTOLIC (NORMALS) IVSd 1.2 (0.6-1.2) LA Diam 2.3 (1.9-4.0) LVEF 71% LVIDd 3.5 (3.5-5.7) LVIDs 2.1 (2.0-3.5) %FS 40% LVPWd 1.0 (0.6-1.2) Ao Diam 2.8 (2.0-3.7) 2 DIMENSIONAL ASSESSMENT: RIGHT ATRIUM: NORMAL LEFT ATRIUM: NORMAL RIGHT VENTRICLE: NORMAL LEFT VENTRICLE: NORMAL TRICUSPID VALVE: MITRAL VALVE: PULMONIC VALVE: NORMAL AORTIC VALVE: NORMAL PERICARDIAL EFFUSION: NONE AORTIC ROOT: NORMAL LEFT VENTRICULAR WALL MOTION: NORMAL DOPPLER/COLOR FLOW: SEE BELOW. COMMENTS: NORMAL LEFT VENTRICULAR EJECTION FRACTION > 60% WITH NORMAL WALL MOTION. MILD TRICUSPID AND MITRAL REGURGITATION. NO CLEAR VEGETATION IS SEEN ON THIS EXAM. KUB: COMPARISON: No comparisons FINDINGS: NG tube tip overlies the stomach. Right femoral line with tip overlying the L4 vertebral body. The bowel is relatively gasless and without evidence of obstruction. Mild scoliosis. IMPRESSION: Relatively gasless appearance of the abdomen which could be due to decompressed and/or fluid filled bowel. Though not excluded, an ileus or bowel obstruction considered less likely. . Carotid doppler: FINDINGS: Normal high resistance waveforms are noted in both external carotid arteries. The common carotid arteries and internal carotid arteries show normal low resistance waveforms. No significant plaque formation is seen. Peak systolic and end diastolic velocity values and the ICA/CCA ratios are in the non-hemodynamically significant range. Antegrade flow seen in both vertebral arteries. Velocity values and ratios were recorded and are retained in the patient's imaging records. IMPRESSION: No significant atherosclerotic changes noted. No evidence of a hemodynamically significant stenosis. Follow up CT Head 02/09/2021: COMPARISON: February 07, 2021 TECHNIQUE: Computed axial tomography of the head was obtained. Unenhanced and enhanced images obtained. 50 cc Isovue-[address] scans are performed using dose optimization technique as appropriate and may include automated exposure control or mA/KV adjustment according to patient size. FINDINGS: An intracranial bleed is not seen . The temporal horns of the lateral ventricles bilaterally remain dilated. The third, fourth and remainder of the lateral ventricles are normal caliber. Low-density areas within the right and left cerebellum, right and left internal capsule, left basal ganglia, left external capsule, periventricular white matter bilaterally, left frontal lobe and posterior right frontal lobe are without significant change from the prior examination. No extra-axial fluid collection is noted. No abnormal enhancement seen Fluid within the sinuses/ mastoids is not seen. IMPRESSION: Bilateral hypodensities involving the cerebrum and cerebellum without significant change from the prior exam. I suspect this is secondary to a metabolic disturbance perhaps extrapontine myelinolysis. Infarction is another consideration. When the patient's condition permits MRI is recommended Follow up CXR 02/10/2021: CLINICAL HISTORY: Device placement endotracheal tube placement IMPRESSION: Endotracheal tube has been retracted and is in good position. Follow up KUB 02/10/2021: CLINICAL HISTORY: Abdomen pain. FINDINGS: The bowel gas pattern is unremarkable. Right femoral catheter has its tip overlying L4. Nasogastric tube within the proximal stomach MRI Brain: FINDINGS: No intracranial hemorrhage is present. No mass effect, diffuse cerebral edema or shift of midline structures. No cerebral sulcal effacement or basilar cistern effacement. Diffusion-weighted imaging shows numerous small to medium sized areas of abnormal diffusion throughout the cerebral hemispheres and in the basal ganglia. There is symmetric abnormal diffusion signal along the medial aspects of the temporal lobes coursing toward the splenium of the corpus callosum. There is less intense diffusion signal abnormality in each cerebellar hemisphere, also symmetric. These areas have hypointense T1 signal. There is corresponding diminished signal on ADC mapping sequence. No brainstem involvement. Lesions are hyperintense on T2/IR sequencing with postcontrast imaging showing a peripheral enhancement pattern in the larger symmetric lesions and some of the larger asymmetric cerebral lesions. The symmetric lesions in the medial temporal lobes do not clearly enhance. Symmetric basal ganglia foci are present. A few lesions in the periventricular white matter left frontal lobe are oriented perpendicular to the lateral ventricle. An acute cortical based infarction is not seen. No extra-axial fluid collections. Che matter- white matter junction is preserved. Signal voids are seen as a normal finding in the major intracranial vessels. No venous sinus thrombosis. No globe or orbital content abnormality. Mastoid air cells and paranasal sinuses are clear. Available history indicates chronic recreational drug usage, possibly psychoactive herb called Kratom. Findings are believed to be constellation of acute and chronic changes related to the recreational drug use as well as changes related to prolonged seizure activity. Many of the smaller non symmetrical cerebral lesions are sequela of acute infarction. The nonenhancing medial temporal lobe changes may be related to localized anoxia from the prolonged seizure. The enhancing symmetrical cerebellum and basal ganglia lesions as well as the asymmetric enhancing cerebral lesions are probably chronic changes related to a metabolic process, possibly the recreational drug. IMPRESSION: Numerous areas of abnormal signal intensity and enhancement scattered throughout the cerebral hemispheres, basal ganglia and cerebellum with both symmetric and non symmetric distribution patterns. The smaller nonenhancing cerebral lesions are probably acute CVA with the medial temporal lobe symmetric signal abnormalities related to anoxic insult from the status epilepticus. The larger, symmetric cerebellum and basal ganglia lesions and the non symmetric larger enhancing lesions are favored to be chronic sequela of the patient's recreational drug usage. Outside consultation is being sought and an addendum will be issued if any additional insight can be provided. MRA Brain: COMPARISON: MRI brain same date TECHNIQUE: Axial and coronal 3D [id number] image acquisition was performed. 3D rotational images were generated with source and reconstruction images reviewed. Horizontal and vertical axis rotational views generated using MIP protocol. FINDINGS: Distal vertebral arteries and basilar artery show no focal abnormalities. Posterior cerebral arteries show no significant disease. The bilateral internal carotid arteries without dissection, stenosis or acute finding. The bilateral A1 segments of the anterior cerebral arteries are narrowed and irregular. Slight irregular contour seen in the bilateral anterior cerebral arteries distal to the A1 segments. Only minimal luminal narrowing seen in the bilateral middle cerebral arteries. No aneurysm or vascular malformation. IMPRESSION: Irregular luminal narrowing changes in each anterior cerebral artery and minimal luminal changes in the bilateral middle cerebral arteries. Patient is relatively young for significant atherosclerotic disease. Vasculitis is possible etiology. MRA Neck: COMPARISON: MRA head same date, MRA brain same date TECHNIQUE: MR angiography of the cervical vasculature performed. Coronal imaging plane acquisition utilized. A 19 MultiHance contrast volume was utilized. Coronal reformatted images were generated and reviewed. Vertical axis 3D rotational projections obtained using maximum intensity projection protocol. FINDINGS: Aortic arch is bovine configuration with no origins stenoses. Vertebral arteries show no origin abnormalities. The bilateral common carotid and internal carotid arteries show no dissection, stenosis, vasculitis or other acute finding. Codominant vertebral arteries also without significant or suspicious finding. Partially imaged subclavian arteries show no abnormalities. IMPRESSION: Negative contrast MRA neck examination. Physical exam: General: Patient more alert and appropriate today. HEENT: Neck supple Respiratory: Clear to auscultation bilaterally, Normal air movement Cardiovascular: Regular rate/rhythm, Normal S1 S2 Gastrointestinal: Soft. Nondistended. Musculoskeletal: No clubbing, No swelling Integumentary: No rashes Neurological: Better strength to the right side. 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 pneumonia Ileus GERD Plan: Status epilepticus with Lonnie's paralysis on the right side likely related to recent substance abuse/metabolic disturbance with abnormal MRI brain findings likely related to substance abuse: Patient improved. Better strength to the r ight side. MRI reviewed with neurology and radiology. MRI showed Numerous areas of abnormal signal intensity and enhancement scattered throughout the cerebral hemispheres, basal ganglia and cerebellum with both symmetric and non symmetric distribution patterns. The smaller nonenhancing cerebral lesions are probably acute CVA with the medial temporal lobe symmetric signal abnormalities related to anoxic insult from the status epilepticus. The larger, symmetric cerebellum and basal ganglia lesions and the non symmetric larger enhancing lesions are favored to be chronic sequela of the patient's recreational drug usage. Outside consultation is being sought and an addendum will be issued if any additional insight can be provided. Await final analysis. Continue antiseizure medication. Will change to oral medication todayKeppra 1000 mg p.o. twice daily and Dilantin 300 mg at bedtime. Recent labs shows therapeutic range. Continue with physical therapy and Occupational Therapy. Encourage ambulation. Medication for blood pressure adjusted with improvement. Wean off pain medication. Continue folic acid. Anticipate home in the next 1 to 2 days if able to ambulate appropriately and safe to discharge. Acute respiratory failure with bacteremia, blood culture positive for strep pneumoniae: Patient has done well. Patient on room air. Will change Rocephin IV to Augmentin. Patient will need 14-day treatment. Currently on day 7. Repeat blood culture so far negative. Elevated Troponin likely ischemic demand: Continue aspirin 80 mg daily. Will discontinue Plavix. Echocardiogram shows normal ejection fraction. HTN uncontrolled: Blood pressure improved. Continue with carvedilol 25 mg 1 pill twice daily, lisinopril 20 mg 1 pill twice daily, and Norvasc 5 mg 1 pill twice daily. Aldactone 25 mg daily added by nephrology. Continue to monitor and adjust medication. Acute renal failure: Renal function back to baseline. Continue with nephrology recommendations Acute liver failure: Liver function improved. Will monitor closely. Ileus: This has resolved. Continue with oral nutrition. GERD: Continue with Pepcid. DVT prophylaxis: Lovenox Code status: Full code Advanced care planning: Home at discharge Time Spent Managing Pts Care (In Minutes): 55
[2021-02-13 06:20] LABS: Albumin, (SPE) 3.5 g/dL (3.8-4.8); Alpha-1-Globulins 0.4 g/dL (0.2-0.3); Alpha-2-Globulins 0.8 g/dL (0.5-0.9); Gamma Globulins 1.1 g/dL (0.8-1.7); INTERPRETATION REPORT
[2021-02-13] MEDS ORDERED: carvediloL 25 MG TAB ONE (06:42)
[2021-02-13] MEDS ORDERED: ASPIRIN EC 81 MG TAB PO ONE (06:52)
[2021-02-13] MEDS ORDERED: FOLIC ACID 1 MG TABLET ONE (06:52)
[2021-02-13] MEDS ORDERED: THIAMINE HCL 100 MG TABLET ONE (06:52)
[2021-02-13] MEDS ORDERED: AMLODIPINE 5 MG TAB ONE ×2 (06:52→20:16)
[2021-02-13] MEDS ORDERED: CLOPIDOGREL 75 MG TABLET ONE (06:53)
[2021-02-13] MEDS ORDERED: FAMOTIDINE 20 MG TAB ONE ×2 (06:53→20:16)
[2021-02-13] MEDS ORDERED: ENOXAPARIN 40 MG/0.4 ML SQ ONE (06:53)
[2021-02-13] MEDS ORDERED: lisinopriL 20 MG TAB ONE ×2 (06:53→20:16)
[2021-02-13] MEDS: KCL 20 MEQ/100 mL IVPB 20 MEQ/100 ML BAG IV SCH ×2 (08:00→10:00)
[2021-02-13] MEDS ORDERED: SPIRONOLACTONE 25 MG TABLET ONE (08:22)
[2021-02-13] MEDS: D5W IV SCH ×2 (08:25)
[2021-02-13] MEDS: KCL IV SCH ×2 (08:25)
[2021-02-13] MEDS: SPIRONOLACTONE 25 MG TABLET PO SCH (08:26)
[2021-02-13] MEDS: ASPIRIN EC 81 MG TAB PO SCH (08:26)
[2021-02-13] MEDS: CLOPIDOGREL 75 MG TABLET PO SCH (08:28)
[2021-02-13] MEDS: ENOXAPARIN 40 MG/0.4 ML SQ SCH (08:28)
[2021-02-13] MEDS: FAMOTIDINE 20 MG TAB PO SCH ×2 (08:28→20:39)
[2021-02-13] MEDS: AMLODIPINE 5 MG TAB PO SCH ×2 (08:28→20:39)
[2021-02-13] MEDS: FOLIC ACID 1 MG TABLET PO SCH (08:28)
[2021-02-13] MEDS: THIAMINE HCL 100 MG TABLET PO SCH (08:29)
[2021-02-13] MEDS ORDERED: CEFTRIAXONE 1000 MG/VIAL ONE (08:40)
[2021-02-13] MEDS ORDERED: NA CHLORIDE 0.9% 50 ML ONE (08:40)
[2021-02-13] MEDS: CEFTRIAXONE 1,000 MG in NA CHLORIDE 0.9% 50 ML IVPB SCH (08:41)
[2021-02-13] MEDS ORDERED: lisinopriL 10 MG TAB ONE ×2 (08:41→10:07)
[2021-02-13] MEDS: lisinopriL 10 MG TAB PO SCH ×2 (09:00→20:38)
[2021-02-13] MEDS: carvediloL 25 MG TAB PO SCH ×2 (10:09→18:43)
--- NOTE | 2021-02-13 18:49 | RAD REPORT ---
EXAM DESCRIPTION: CT - [id number] - 02/13/2021 6:37 pm CLINICAL HISTORY: Trauma, head and neck injury. fall COMPARISON: MRA Head Wo Cont dated 02/11/2021; Brain W/Wo Cont dated 02/11/2021; Head Brain W/Wo Con d ated 02/09/2021 TECHNIQUE: Axial 5 mm thick images of the head were obtained. Axial 2 mm thick images of the cervical spine were obtained with sagittal and coronal reconstruction images generated and reviewed. All CT scans are performed using dose optimization technique as appropriate and may include automated exposure control or mA/KV adjustment according to patient size. FINDINGS: CT HEAD WITHOUT CONTRAST: No acute hemorrhage, hydrocephalus or extra-axial collection is identified.Bilateral small subacute i nfarcts again noted. Loss of bustos-white differentiation in the cerebellum is also noted which was pre sent on the prior MRI. The paranasal sinuses and mastoids are clear.The calvarium is intact. CT CERVICAL SPINE WITHOUT CONTRAST: No fracture or subluxation.No prevertebral soft tissues swelling is identified. IMPRESSION: No evidence of significant trauma to the head or neck. Findings from recent cerebral and cerebellar insults are grossly similar to prior but not as well evaluated on noncontrast head CT.
[2021-02-13] MEDS ORDERED: PHENYTOIN ER 100 MG CAP PO ONE (20:15)
[2021-02-13] MEDS ORDERED: levETIRAcetam 500 MG TAB ONE (20:16)
[2021-02-13] MEDS: AMOX/K CLAV 500 MG TAB PO SCH (20:37)
[2021-02-13] MEDS: PHENYTOIN ER 100 MG CAP PO SCH (20:38)
[2021-02-13] MEDS: levETIRAcetam 500 MG TAB PO SCH (20:38)
--- NOTE | 2021-02-14 00:05 | PN ---
Date of Progress Note: 02/13/2021 Chief Complaint: Acute kidney injury due to prerenal azotemia with nonoliguric urine output in setti ng of respiratory failure and stroke. Review of Systems: Unobtainable. The patient is lethargic. Objective: Lungs: Clear to auscultation bilaterally. Heart: S1, S2. Abdomen: Soft, benign. Extremities: No edema. Impression And Plan: 1.Acute kidney injury secondary to prerenal state with acute tubular necrosis, nonoliguric urine out put, resolved. Continue to monitor fluid balance. discontinue Schofield catheter. 2.Hypertension. Blood pressure is improving. 3.Status epilepticus due to illicit prescription. 4.Right-sided weakness. The patient has been followed by neurologist and she had MRI of the brain d one, which showed areas of ischemia, likely seizure related. 5.Streptococcus pneumonia bacteremia. Antibiotics per primary team. 6.Acutely liver failure, improved. Monitor liver function test. 7.Hypokalemia. Continue spironolactone and supplementation with potassium chloride. KIRK/MODL Voice ID: [id number] Report ID: [id number]
[2021-02-14] MEDS: KCL IV SCH ×4 (03:00→08:22)
[2021-02-14] MEDS: D5W IV SCH ×4 (03:00→08:22)
[2021-02-14] MEDS ORDERED: HYDROMORPHONE HCL 1 MG/ML INJ ONE ×2 (05:15→16:35)
[2021-02-14] MEDS: HYDROMORPHONE HCL 1 MG/ML INJ IV PRN ×2 (05:17→16:39)
[2021-02-14] MEDS: carvediloL 25 MG TAB PO SCH ×2 (05:31→17:04)
[2021-02-14 05:36] LABS: Albumin 3.3 g/dL (3.4-5.0); BUN Blood Urea Nitrogen 8 mg/dL (7-18); Bicarbonate 26 mmol/L (21-32); Glucose Level 98 mg/dL (74-106); Magnesium 1.9 mg/dL (1.8-2.4); Phosphorus 2.9 mg/dL (2.5-4.9); Potassium 3.4 mmol/L (3.5-5.1); Sodium Level 139 mmol/L (136-145)
--- NOTE | 2021-02-14 06:38 | P.PN ---
Subjective Date of Service: 02/14/21 Primary Care Provider: none Chief Complaint: Respiratory failure stroke Subjective: Other (Patient fell out of bed yesterday. CT scan was obtained. This was negative. Patient alert and cooperative this morning. Blood pressure was low.) Physical Examination - Vital Signs Temperature: 97.9 F Blood Pressure: 163/93 Pulse: 95 Respirations: 13 Pulse Ox (%): 99 Assessment & Plan Discharge Plan: Home Plan to discharge in: 48 Hours Physician Review Additional Text: COVID: negative Initial CT Head: COMPARISON: None TECHNIQUE: Computed axial tomography of the head was obtained. IV contrast was not requested. All CT scans are performed using dose optimization technique as appropriate and may include automated exposure control or mA/KV adjustment according to patient size. FINDINGS: An intracranial bleed is not seen . Subtle low-density area right internal capsule and left caudate The ventricles are normal in caliber. No extra-axial fluid collection is noted. Fluid within the sinuses/ mastoids is not seen. IMPRESSION: Subtle low-density areas right internal capsule and left caudate. These could be acute or chronic. Follow up CT Head: COMPARISON: 02/06/2021 TECHNIQUE: Axial CT of the head obtained from the skull apex to the skull base without contrast. This exam was performed according to our departmental dose- optimization program, which includes automated exposure control, adjustment of the mA and/or kV according to patient size and/or use of iterative ernie nstruction technique. FINDINGS: No acute intracranial hemorrhage identified. Interval development of well-circumscribed hypodensities involving the anterior left centrum semiovale and the left posterior malcolm radiata. . Interval progression of hypodensities in the bilateral basal ganglia and bilateral cerebellum. Regions likely represent areas of cytotoxic edema. Interval distention involving the temporal horn of the lateral ventricles. No significant midline shift. The visualized paranasal sinuses and the mastoid air cells are relatively well aerated. No skull fracture identified. Visualized orbits and globes are unremarkable. Excellent visualization of NG tube. IMPRESSION: 1. Interval development of well-circumscribed hypodensities involving the anterior left centrum semiovale and the left posterior malcolm radiata. Interval progression of hypodensities in the bilateral basal ganglia and bilateral cerebellum. Regions likely represent areas of cytotoxic edema. These findings are concerning for acute or subacute infarction. MRI of the brain recommended. 2. Interval distention involving the temporal horn of the lateral ventricles. This may indicate developing communicating hydrocephalus. ECHO: MEASUREMENTS (cm) DIASTOLIC (NORMALS) SYSTOLIC (NORMALS) IVSd 1.2 (0.6-1.2) LA Diam 2.3 (1.9-4.0) LVEF 71% LVIDd 3.5 (3.5-5.7) LVIDs 2.1 (2.0-3.5) %FS 40% LVPWd 1.0 (0.6-1.2) Ao Diam 2.8 (2.0-3.7) 2 DIMENSIONAL ASSESSMENT: RIGHT ATRIUM: NORMAL LEFT ATRIUM: NORMAL RIGHT VENTRICLE: NORMAL LEFT VENTRICLE: NORMAL TRICUSPID VALVE: MITRAL VALVE: PULMONIC VALVE: NORMAL AORTIC VALVE: NORMAL PERICARDIAL EFFUSION: NONE AORTIC ROOT: NORMAL LEFT VENTRICULAR WALL MOTION: NORMAL DOPPLER/COLOR FLOW: SEE BELOW. COMMENTS: NORMAL LEFT VENTRICULAR EJECTION FRACTION > 60% WITH NORMAL WALL MOTION. MILD TRICUSPID AND MITRAL REGURGITATION. NO CLEAR VEGETATION IS SEEN ON THIS EXAM. KUB: COMPARISON: No comparisons FINDINGS: NG tube tip overlies the stomach. Right femoral line with tip overlying the L4 vertebral body. The bowel is relatively gasless and without evidence of obstruction. Mild scoliosis. IMPRESSION: Relatively gasless appearance of the abdomen which could be due to decompressed and/or fluid filled bowel. Though not excluded, an ileus or bowel obstruction considered less likely. . Carotid doppler: FINDINGS: Normal high resistance waveforms are noted in both external carotid arteries. The common carotid arteries and internal carotid arteries show normal low resistance waveforms. No significant plaque formation is seen. Peak systolic and end diastolic velocity values and the ICA/CCA ratios are in the non-hemodynamically significant range. Antegrade flow seen in both vertebral arteries. Velocity values and ratios were recorded and are retained in the patient's imaging records. IMPRESSION: No significant atherosclerotic changes noted. No evidence of a hemodynamically significant stenosis. Follow up CT Head 02/09/2021: COMPARISON: February 07, 2021 TECHNIQUE: Computed axial tomography of the head was obtained. Unenhanced and enhanced images obtained. 50 cc Isovue-[address] scans are performed using dose optimization technique as appropriate and may include automated exposure control or mA/KV adjustment according to patient size. FINDINGS: An intracranial bleed is not seen . The temporal horns of the lateral ventricles bilaterally remain dilated. The third, fourth and remainder of the lateral ventricles are normal caliber. Low-density areas within the right and left cerebellum, right and left internal capsule, left basal ganglia, left external capsule, periventricular white matter bilaterally, left frontal lobe and posterior right frontal lobe are without significant change from the prior examination. No extra-axial fluid collection is noted. No abnormal enhancement seen Fluid within the sinuses/ mastoids is not seen. IMPRESSION: Bilateral hypodensities involving the cerebrum and cerebellum without significant change from the prior exam. I suspect this is secondary to a metabolic disturbance perhaps extrapontine myelinolysis. Infarction is another consideration. When the patient's condition permits MRI is recommended Follow up CXR 02/10/2021: CLINICAL HISTORY: Device placement endotracheal tube placement IMPRESSION: Endotracheal tube has been retracted and is in good position. Follow up KUB 02/10/2021: CLINICAL HISTORY: Abdomen pain. FINDINGS: The bowel gas pattern is unremarkable. Right femoral catheter has its tip overlying L4. Nasogastric tube within the proximal stomach MRI Brain: FINDINGS: No intracranial hemorrhage is present. No mass effect, diffuse cerebral edema or shift of midline structures. No cerebral sulcal effacement or basilar cistern effacement. Diffusion-weighted imaging shows numerous small to medium sized areas of abnormal diffusion throughout the cerebral hemispheres and in the basal ganglia. There is symmetric abnormal diffusion signal along the medial aspects of the temporal lobes coursing toward the splenium of the corpus callosum. There is less intense diffusion signal abnormality in each cerebellar hemisphere, also symmetric. These areas have hypointense T1 signal. There is corresponding diminished signal on ADC mapping sequence. No brainstem involvement. Lesions are hyperintense on T2/IR sequencing with postcontrast imaging showing a peripheral enhancement pattern in the larger symmetric lesions and some of the larger asymmetric cerebral lesions. The symmetric lesions in the medial temporal lobes do not clearly enhance. Symmetric basal ganglia foci are present. A few lesions in the periventricular white matter left frontal lobe are oriented perpendicular to the lateral ventricle. An acute cortical based infarction is not seen. No extra-axial fluid collections. Che matter- white matter junction is preserved. Signal voids are seen as a normal finding in the major intracranial vessels. No venous sinus thrombosis. No globe or orbital content abnormality. Mastoid air cells and paranasal sinuses are clear. Available history indicates chronic recreational drug usage, possibly psychoactive herb called Kratom. Findings are believed to be constellation of acute and chronic changes related to the recreational drug use as well as changes related to prolonged seizure activity. Many of the smaller non symmetrical cerebral lesions are sequela of acute infarction. The nonenhancing medial temporal lobe changes may be related to localized anoxia from the prolonged seizure. The enhancing symmetrical cerebellum and basal ganglia lesions as well as the asymmetric enhancing cerebral lesions are probably chronic changes related to a metabolic process, possibly the recreational drug. IMPRESSION: Numerous areas of abnormal signal intensity and enhancement scattered throughout the cerebral hemispheres, basal ganglia and cerebellum with both symmetric and non symmetric distribution patterns. The smaller nonenhancing cerebral lesions are probably acute CVA with the medial temporal lobe symmetric signal abnormalities related to anoxic insult from the status epilepticus. The larger, symmetric cerebellum and basal ganglia lesions and the non symmetric larger enhancing lesions are favored to be chronic sequela of the patient's recreational drug usage. Outside consultation is being sought and an addendum will be issued if any additional insight can be provided. MRA Brain: COMPARISON: MRI brain same date TECHNIQUE: Axial and coronal 3D [id number] image acquisition was performed. 3D rotational images were generated with source and reconstruction images reviewed. Horizontal and vertical axis rotational views generated using MIP protocol. FINDINGS: Distal vertebral arteries and basilar artery show no focal abnormalities. Posterior cerebral arteries show no significant disease. The bilateral internal carotid arteries without dissection, stenosis or acute finding. The bilateral A1 segments of the anterior cerebral arteries are narrowed and irregular. Slight irregular contour seen in the bilateral anterior cerebral arteries distal to the A1 segments. Only minimal luminal narrowing seen in the bilateral middle cerebral arteries. No aneurysm or vascular malformation. IMPRESSION: Irregular luminal narrowing changes in each anterior cerebral artery and minimal luminal changes in the bilateral middle cerebral arteries. Patient is relatively young for significant atherosclerotic disease. Vasculitis is possible etiology. MRA Neck: COMPARISON: MRA head same date, MRA brain same date TECHNIQUE: MR angiography of the cervical vasculature performed. Coronal imaging plane acquisition utilized. A 19 MultiHance contrast volume was utilized. Coronal reformatted images were generated and reviewed. Vertical axis 3D rotational projections obtained using maximum intensity projection protocol. FINDINGS: Aortic arch is bovine configuration with no origins stenoses. Vertebral arteries show no origin abnormalities. The bilateral common carotid and internal carotid arteries show no dissection, stenosis, vasculitis or other acute finding. Codominant vertebral arteries also without significant or suspicious finding. Partially imaged subclavian arteries show no abnormalities. IMPRESSION: Negative contrast MRA neck examination. Physical exam: General: Patient more alert and appropriate today. HEENT: Neck supple Respiratory: Clear to auscultation bilaterally, Normal air movement Cardiovascular: Regular rate/rhythm, Normal S1 S2 Gastrointestinal: Soft. Nondistended. Musculoskeletal: No clubbing, No swelling Integumentary: No rashes Neurological: Better strength to the right side. 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 pneumonia Ileus GERD Plan: Status epilepticus with Lonnie's paralysis on the right side likely related to recent substance abuse/metabolic disturbance with abnormal MRI brain findings likely related to substance abuse: Patient overall improved. Strength to the right side appears stable but poor. This may be her new baseline. MRI reviewed with neurology and radiology. MRI showed Numerous areas of abnormal signal intensity and enhancement scattered throughout the cerebral hemispheres, basal ganglia and cerebellum with both symmetric and non symmetric distribution patterns. The smaller nonenhancing cerebral lesions are probably acute CVA with the medial temporal lobe symmetric signal abnormalities related to anoxic insult from the status epilepticus. The larger, symmetric cerebellum and basal ganglia lesions and the non symmetric larger enhancing lesions are favored to be chronic sequela of the patient's recreational drug usage. Outside consultation is being sought and an addendum will be issued if any additional insight can be provided. Await final analysis. Case discussed at length with neurology. Continue antiseizure medication. Continue Keppra 1000 mg p.o. twice daily and Dilantin 300 mg at bedtime. Recent labs shows therapeutic range. Continue with physical therapy and occupational Therapy to increase ambulation. Blood pressure was low today. Bolus given. Will make adjustments to medication. Will decrease carvedilol to 12.5 mg 1 pill twice daily. Continue lisinopril, Norvasc. Will discontinue Aldactone. Encourage oral intake. Continue to adjust medication. Continue folic acid. Anticipate improvement over the next 1 to 2 days. Home once patient is able to ambulate appropriately and safe for discharge. I will turn the service over to the hospitalist team tomorrow. I will go plan of care with him. Acute respiratory failure with bacteremia, blood culture positive for strep pneumoniae: Patient has done well. Patient on room air. Continue Augmentin. Patient will need 14-day treatment. Currently on day 7. Repeat blood culture so far negative. Elevated Troponin likely ischemic demand: Continue aspirin 81 mg daily. Plavix discontinued. Echocardiogram shows normal ejection fraction. HTN uncontrolled: Pressure was low today. Will make adjustments to her medication. Will discontinue Aldactone 25 mg daily. Will decrease carvedilol to 12.5 mg 1 pill twice daily. Continue lisinopril 20 mg 1 pill twice daily and Norvasc 5 mg 1 pill twice daily. Continue to adjust medication. Acute renal failure: Renal function back to baseline. Discontinue IV fluids. Continue with nephrology recommendations Acute liver failure: Liver function improved. Will monitor closely. Ileus: This has resolved. Continue with oral nutrition. GERD: Continue with Pepcid. DVT prophylaxis: Lovenox Code status: Full code Advanced care planning: Home at discharge Time Spent Managing Pts Care (In Minutes): 55
[2021-02-14] MEDS: SPIRONOLACTONE 25 MG TABLET PO SCH (08:52)
[2021-02-14] MEDS: lisinopriL 10 MG TAB PO SCH ×2 (08:53→13:34)
[2021-02-14] MEDS: AMLODIPINE 5 MG TAB PO SCH ×3 (08:53→21:03)
[2021-02-14] MEDS ORDERED: FOLIC ACID 1 MG TABLET ONE (09:01)
[2021-02-14] MEDS ORDERED: THIAMINE HCL 100 MG TABLET ONE (09:01)
[2021-02-14] MEDS ORDERED: levETIRAcetam 500 MG TAB ONE ×2 (09:01→20:57)
[2021-02-14] MEDS ORDERED: ASPIRIN EC 81 MG TAB PO ONE (09:01)
[2021-02-14] MEDS ORDERED: FAMOTIDINE 20 MG TAB ONE ×2 (09:01→20:57)
[2021-02-14] MEDS ORDERED: ENOXAPARIN 40 MG/0.4 ML SQ ONE (09:02)
[2021-02-14] MEDS: AMOX/K CLAV 500 MG TAB PO SCH ×2 (09:04→21:05)
[2021-02-14] MEDS: ASPIRIN EC 81 MG TAB PO SCH (09:04)
[2021-02-14] MEDS: FOLIC ACID 1 MG TABLET PO SCH (09:04)
[2021-02-14] MEDS: ENOXAPARIN 40 MG/0.4 ML SQ SCH (09:05)
[2021-02-14] MEDS: FAMOTIDINE 20 MG TAB PO SCH ×2 (09:05→21:03)
[2021-02-14] MEDS: levETIRAcetam 500 MG TAB PO SCH ×2 (09:05→21:03)
[2021-02-14] MEDS: THIAMINE HCL 100 MG TABLET PO SCH (09:05)
[2021-02-14] MEDS ORDERED: carvediloL 25 MG TAB PO SCH (12:00)
[2021-02-14] MEDS ORDERED: METOPROLOL TARTRATE 5 MG/5 ML INJ IV ONE (13:10)
[2021-02-14] MEDS: METOPROLOL TARTRATE 5 MG/5 ML INJ IV PRN (13:11)
[2021-02-14] MEDS ORDERED: AMLODIPINE 5 MG TAB ONE ×2 (13:28→20:57)
[2021-02-14] MEDS ORDERED: lisinopriL 20 MG TAB ONE (13:28)
[2021-02-14] MEDS ORDERED: lisinopriL 10 MG TAB ONE (13:34)
[2021-02-14] MEDS ORDERED: LORazepam 2 MG/ML VIAL ONE (19:00)
[2021-02-14] MEDS: LORazepam 2 MG/ML VIAL IV PRN (19:03)
[2021-02-14] MEDS: DOXAZOSIN 2 MG TAB PO SCH (21:05)
--- NOTE | 2021-02-14 21:06 | PN ---
Date of Progress Note: 02/14/2021 Chief Complaint: Acute kidney injury due to prerenal azotemia. The patient has nonoliguric urine ou tput. Urine output has stabilized. Renal function improved to baseline. Review of Systems: The patient is lethargic, responsive to voice and follow some commands. Objective: Lungs: Clear to auscultation bilaterally. Heart: S1, S2. Abdomen: Soft, benign. Extremities: No edema. Impression And Plan: 1.Acute kidney injury secondary to prerenal azotemia with acute tubular necrosis. Patient received IV fluids and has improved. 2.Hypertension. Overall, is improving and remains elevated. The patient will have p.o. blood press ure medication . 3.Status epilepticus. Patient is followed by neurologist. KIRK/BRYANTL Voice ID: [id number] Report ID: [id number]
[2021-02-14] MEDS ORDERED: PHENYTOIN ER 100 MG CAP PO ONE (21:11)
[2021-02-14] MEDS: PHENYTOIN ER 100 MG CAP PO SCH (21:13)
[2021-02-15] MEDS ORDERED: HYDROMORPHONE HCL 1 MG/ML INJ ONE (00:07)
[2021-02-15] MEDS: HYDROMORPHONE HCL 1 MG/ML INJ IV PRN ×2 (00:08→10:06)
[2021-02-15 04:51] LABS: BUN Blood Urea Nitrogen 13 mg/dL (7-18); Bicarbonate 26 mmol/L (21-32); Glucose Level 85 mg/dL (74-106); Magnesium 2.1 mg/dL (1.8-2.4); Potassium 3.6 mmol/L (3.5-5.1); Sodium Level 138 mmol/L (136-145)
[2021-02-15] MEDS ORDERED: POTASSIUM 25 MEQ EFFERV TAB PO ONE (06:19)
[2021-02-15] MEDS ORDERED: POTASSIUM 25 MEQ EFFERV TAB ONE (06:28)
[2021-02-15] MEDS: carvediloL 25 MG TAB PO SCH ×2 (06:34→17:54)
[2021-02-15] MEDS ORDERED: LORazepam 2 MG/ML VIAL ONE (07:34)
[2021-02-15] MEDS: LORazepam 2 MG/ML VIAL IV PRN ×2 (07:36→23:44)
[2021-02-15] MEDS ORDERED: FOLIC ACID 1 MG TABLET ONE (08:48)
[2021-02-15] MEDS ORDERED: THIAMINE HCL 100 MG TABLET ONE (08:48)
[2021-02-15] MEDS ORDERED: AMLODIPINE 5 MG TAB ONE (08:49)
[2021-02-15] MEDS ORDERED: FAMOTIDINE 20 MG TAB ONE (08:49)
[2021-02-15] MEDS ORDERED: levETIRAcetam 500 MG TAB ONE (08:49)
[2021-02-15] MEDS ORDERED: ASPIRIN EC 81 MG TAB PO ONE (08:49)
[2021-02-15] MEDS ORDERED: lisinopriL 20 MG TAB ONE (08:49)
[2021-02-15] MEDS ORDERED: KCL 20 MEQ/100 mL IVPB 100 ML IV ONE (08:50)
[2021-02-15] MEDS ORDERED: ENOXAPARIN 40 MG/0.4 ML SQ ONE (08:50)
[2021-02-15] MEDS ORDERED: SPIRONOLACTONE 25 MG TABLET ONE (08:53)
[2021-02-15] MEDS: THIAMINE HCL 100 MG TABLET PO SCH (09:00)
[2021-02-15] MEDS: ENOXAPARIN 40 MG/0.4 ML SQ SCH (09:00)
[2021-02-15] MEDS: FOLIC ACID 1 MG TABLET PO SCH (09:00)
[2021-02-15] MEDS: AMLODIPINE 5 MG TAB PO SCH ×2 (09:00→21:11)
[2021-02-15] MEDS ORDERED: KCL 20 MEQ/100 mL IVPB 20 MEQ/100 ML BAG IV ONE (09:00)
[2021-02-15] MEDS: lisinopriL 10 MG TAB PO SCH ×2 (09:00→21:14)
[2021-02-15] MEDS: FAMOTIDINE 20 MG TAB PO SCH ×2 (09:00→21:13)
[2021-02-15] MEDS: DOXAZOSIN 2 MG TAB PO SCH ×2 (09:00→21:09)
[2021-02-15] MEDS: ASPIRIN EC 81 MG TAB PO SCH (09:00)
[2021-02-15] MEDS: AMOX/K CLAV 500 MG TAB PO SCH ×2 (09:00→21:08)
[2021-02-15] MEDS: levETIRAcetam 500 MG TAB PO SCH ×2 (09:00→21:11)
[2021-02-15] MEDS: SPIRONOLACTONE 25 MG TABLET PO SCH (09:00)
[2021-02-15] MEDS ORDERED: HYDROMORPHONE HCL 2 MG/ML inj ONE (09:29)
--- NOTE | 2021-02-15 19:29 | P.PN ---
Subjective Date of Service: 02/15/21 Patient is more awake and moving around. Blood pressure is elevated. Started on a Cardene drip. Continue anti epileptics. Renal function is stable. Liver function is improving. Cultures show 1/4 bottle positive for gram-positive cocci. Echocardiogram pending. Carotid Doppler and venous Doppler have been negative. CT scan showed multiple infarcts. EEG in the morning. Review of Systems 10-point ROS is otherwise unremarkable Physical Examination - Vital Signs Temperature: 98.4 F Blood Pressure: 115/79 Pulse: 98 Respirations: 10 Pulse Ox (%): 99 - Physical Exam General: Alert, In no apparent distress HEENT: Atraumatic, PERRLA, EOMI Neck: Supple, JVD not distended Respiratory: Clear to auscultation bilaterally, Normal air movement Cardiovascular: Regular rate/rhythm, Normal S1 S2 Gastrointestinal: Normal bowel sounds, No tenderness Musculoskeletal: No tenderness Integumentary: No rashes Neurological: Normal speech, Normal tone, Normal affect Lymphatics: No axilla or inguinal lymphadenopathy - Studies Medications List Reviewed: Yes Assessment & Plan - Problems (Diagnosis) (1) Status epilepticus Current Visit: Yes Status: Acute (2) Acute respiratory failure Current Visit: Yes Status: Acute (3) Elevated LFTs Current Visit: Yes Status: Acute (4) Acute renal insufficiency Current Visit: Yes Status: Acute (5) Elevated troponin Current Visit: Yes Status: Acute (6) Elevated CPK Current Visit: Yes Status: Acute (7) Acute CVA (cerebrovascular accident) Current Visit: Yes Status: Acute - Plan 1. Continue with Anti epileptics 2. Continue with PT 3. Neurology and Nephrology consultation appreciated 4. Continue with IV hydration 5. Acidosis has improved. 6. Patients BP stable 7. Continue with pain meds prn 8. CT scan shows multi infarcts; started on anti-platelet therapy and statin therapy 9. Renal function and liver function improving 10. continue IV antibiotic therapies; 11. GI and DVT prophylaxis Discharge Plan: Home Plan to discharge in: Greater than 2 days - Advance Directives Does patient have a Living Will: No Does patient have a Durable POA for Healthcare: No - Code Status/Comfort Care Code Status: Full Code Critical Care: No Time Spent Managing PTS Care (In Minutes): 35
[2021-02-15] MEDS: PHENYTOIN ER 100 MG CAP PO SCH (21:11)
--- NOTE | 2021-02-15 22:35 | PN ---
Date of Progress Note: 02/15/2021 Chief Complaint: Acute kidney injury due to prerenal azotemia. Urine output has stabilized. The tejal thakkar has nonoliguric urine output with acute kidney injury secondary to prerenal azotemia and nonoli guric ATN. Renal function has improved. There was no evidence of rhabdomyolysis. Patient prior to this admission was found to have seizure. Neurology workup was initiated by Neurology team for statu s epilepticus. Review of Systems: Patient is confused. Cannot provide review of systems. Objective: Lungs: Clear to auscultation bilaterally. Heart: S1, S2. Abdomen: Soft, benign. Extremities: No edema. Impression And Plan: 1.Acute kidney injury secondary to prerenal azotemia with acute tubular necrosis related to hypokale cheryle. The patient received IV heparin. The renal function has improved. 2.Hypertension. Overall blood pressure is improving. Patient has multiple blood pressure medicatio ns. Continue current treatment and adjust medication for blood pressure control. 3.Status epilepticus, per Neurology. EB/MODL Voice ID: [id number] Report ID: [id number]
[2021-02-16] MEDS: HYDROMORPHONE HCL 1 MG/ML INJ IV PRN (01:15)
[2021-02-16 05:44] LABS: BUN Blood Urea Nitrogen 16 mg/dL (7-18); Bicarbonate 25 mmol/L (21-32); Glucose Level 83 mg/dL (74-106); Magnesium 2.2 mg/dL (1.8-2.4); Potassium 3.6 mmol/L (3.5-5.1); Sodium Level 140 mmol/L (136-145)
[2021-02-16] MEDS: carvediloL 25 MG TAB PO SCH ×2 (06:51→17:37)
--- NOTE | 2021-02-16 07:44 | RAD REPORT ---
EXAM DESCRIPTION: CT - Head Brain Wo Cont - 02/16/2021 7:31 am CLINICAL HISTORY: Fall, CVA, seizure COMPARISON: Head Brain W/Wo Con dated 02/09/2021; Brain W/Wo Cont dated 02/11/2021; Head C Spine Mpr W o Con dated 02/13/2021 TECHNIQUE: Axial 5 mm thick images of the head were obtained without IV contrast. All CT scans are performed using dose optimization technique as appropriate and may include automated exposure control or mA/KV adjustment according to patient size. FINDINGS: No intracranial hemorrhage has developed. There is no new mass effect, progressive edema o r shift of midline structures. Scattered areas of diminished attenuation are present in the cerebral white matter most notable at approximately 14 mm left parietal lobe. Symmetric low-density in the bas al ganglia again noted persistent from prior imaging. This may have improved slightly when comparing as far back as February 09. Medial temporal lobe hypodensities have improved. There remains diminished density near the splenium of the corpus callosum. Bilateral cerebellum low-density remains. No new c ortical edema or sulcal effacement. No abnormal extra-axial fluid collections. Ventricles are normal size. Mastoid air cells and visualized portions of the paranasal sinuses are clear. No acute bony findings. IMPRESSION: No intracranial hemorrhage has developed. No new mass, progressive edema or shift of mid line structures. Medial temporal lobe and basal ganglia low-density areas have improved. These may have been areas of transitory anoxia related to the prolonged seizure event. Posterior cerebellum hypodensity abnormalities persist but do show some improvement as well. Cerebral white matter ischemic insults are still present.
[2021-02-16] MEDS: FAMOTIDINE 20 MG TAB PO SCH ×2 (08:48→21:28)
[2021-02-16] MEDS: levETIRAcetam 500 MG TAB PO SCH ×2 (08:48→21:29)
[2021-02-16] MEDS: SPIRONOLACTONE 25 MG TABLET PO SCH (08:48)
[2021-02-16] MEDS: ASPIRIN EC 81 MG TAB PO SCH (08:48)
[2021-02-16] MEDS: AMLODIPINE 5 MG TAB PO SCH ×2 (08:48→21:28)
[2021-02-16] MEDS: AMOX/K CLAV 500 MG TAB PO SCH (08:48)
[2021-02-16] MEDS: ENOXAPARIN 40 MG/0.4 ML SQ SCH (08:49)
[2021-02-16] MEDS: FOLIC ACID 1 MG TABLET PO SCH (08:49)
[2021-02-16] MEDS: DOXAZOSIN 2 MG TAB PO SCH ×2 (08:49→21:29)
[2021-02-16] MEDS: lisinopriL 10 MG TAB PO SCH ×2 (08:49→21:28)
[2021-02-16] MEDS: THIAMINE HCL 100 MG TABLET PO SCH (08:49)
--- NOTE | 2021-02-16 08:55 | P.PN ---
Subjective Date of Service: 02/16/21 Primary Care Provider: none Chief Complaint: Respiratory failure stroke Subjective: No new changes Physical Examination - Vital Signs Temperature: 97.9 F Blood Pressure: 136/76 Pulse: 95 Respirations: 16 Pulse Ox (%): 99 - Physical Exam General: Other (appears acutely ill) HEENT: Atraumatic, Normocephalic Neck: Supple Respiratory: Other (symmetric chest expansion) Cardiovascular: No rubs, No murmurs Gastrointestinal: Soft and benign, No guarding Musculoskeletal: No clubbing Integumentary: No warmth Neurological: Normal tone Urinary: Other (no bladder distention) External genitalia: Deferred Rectal: Deferred - Studies Medications List Reviewed: Yes Assessment And Plan - Plan # KELLEY 2/2 prerenal state/ATN Resolved [place] po fluid intake Monitor renal panel # Htn BP meds adjusted # Status epilepticus 2/2 illicit rx use +R sided weakness Head MRI w/ areas of ischemia that's likely seizure related; probable acute CVA. On anti-seizure meds Per Neurology PT/OT # Strep pneumo bactreremia Abx per primary team # Acute liver failure Improved, monitor LFT # Ileus Resolved Feeding tube removed Encourage po intake # Hypokalemia Improving Encourage po intake KCl suppl prn Cont natalee # Dispo Unfunded, dc plan ongoing. Likely dc this Monday.
[2021-02-16] MEDS ORDERED: KCL 20 MEQ/100 mL IVPB 20 MEQ/100 ML BAG IV ONE (09:00)
[2021-02-16] MEDS: AMOX/K CLAV 875 MG TAB PO SCH (21:27)
[2021-02-16] MEDS: PHENYTOIN ER 100 MG CAP PO SCH (21:31)
[2021-02-17] MEDS: HYDROMORPHONE HCL 1 MG/ML INJ IV PRN (00:48)
[2021-02-17 04:14] LABS: Albumin 3.2 g/dL (3.4-5.0); BUN Blood Urea Nitrogen 10 mg/dL (7-18); Bicarbonate 24 mmol/L (21-32); Glucose Level 83 mg/dL (74-106); Magnesium 2.2 mg/dL (1.8-2.4); Phosphorus 3.1 mg/dL (2.5-4.9); Potassium 3.4 mmol/L (3.5-5.1); Sodium Level 140 mmol/L (136-145)
[2021-02-17] MEDS: carvediloL 25 MG TAB PO SCH ×2 (06:32→17:09)
[2021-02-17] MEDS: FAMOTIDINE 20 MG TAB PO SCH ×2 (09:50→22:27)
[2021-02-17] MEDS: DOXAZOSIN 2 MG TAB PO SCH ×2 (09:50→21:00)
[2021-02-17] MEDS: lisinopriL 10 MG TAB PO SCH ×2 (09:50→21:00)
[2021-02-17] MEDS: THIAMINE HCL 100 MG TABLET PO SCH (09:50)
[2021-02-17] MEDS: SPIRONOLACTONE 25 MG TABLET PO SCH (09:50)
[2021-02-17] MEDS: FOLIC ACID 1 MG TABLET PO SCH (09:50)
[2021-02-17] MEDS: ASPIRIN EC 81 MG TAB PO SCH (09:50)
[2021-02-17] MEDS: AMOX/K CLAV 875 MG TAB PO SCH ×2 (09:50→22:26)
[2021-02-17] MEDS: levETIRAcetam 500 MG TAB PO SCH ×2 (09:51→22:26)
[2021-02-17] MEDS: AMLODIPINE 5 MG TAB PO SCH ×2 (09:51→21:00)
[2021-02-17] MEDS: ENOXAPARIN 40 MG/0.4 ML SQ SCH (09:51)
[2021-02-17] MEDS: POTASSIUM CL SA 10 MEQ TAB PO SCH ×2 (11:29→17:10)
--- NOTE | 2021-02-17 12:33 | PN ---
Date of Progress Note: 02/17/2021 Subjective: The patient was admitted with acute kidney injury secondary to toxic ATN, severe acidosi s. The patient did not require any dialysis. The patient had severe UTI, altered mental status with CVA. Blood pressure workup, aldosterone within normal limit. Blood pressure currently controlled. Physical Examination: Vital Signs: Blood pressure 102/73, pulse of 80, afebrile. The patient had good urine output of 950 . Chest: Clear to auscultation. Heart: S1, S2. Regular. Abdomen: Soft, nontender. Extremities: No edema. Neuro: Alert, confused. No focality. Laboratory Data: WBC 9.6, H and H 10.2/29.7. Sodium 140, potassium 3.4, bicarb 24, BUN 10, creatini ne 0.6, GFR above 90, calcium 8.8, phosphorus 3.1, magnesium 2.2. Current Medications: The patient on include; 1.Aspirin. 2.Augmentin. 3.Carvedilol 25 b.i.d. 4.Amlodipine 5 mg b.i.d. 5.Cardura. 6.Lisinopril 20 b.i.d. 7.Spironolactone. 8.Dilantin. 9.Folic acid. 10.Hydromorphone. Assessment And Plan: 1.Acute kidney injury secondary to prerenal, toxic ATN, recovered, resolved. Normal volume. Keep h olding any IV fluid. 2.Secondary hypertension. Workup is still pending. We will follow up. Currently, blood pressure w ell controlled. Continue current regimen. 3.Acidosis secondary to poor perfusion, lactic acidosis, resolved. 4.Hypokalemia. We will supplement. 5.Altered mental status, cerebrovascular accident as by primary and Neurology. MA/MODL Voice ID: [id number] Report ID: [id number]
[2021-02-17] MEDS: PHENYTOIN ER 100 MG CAP PO SCH (22:27)
[2021-02-17 23:38] VITALS: O2SAT 100
[2021-02-17] MEDS: MELATONIN 5 MG TABLET PO PRN (23:55)
--- NOTE | 2021-02-18 00:35 | P.PN ---
Date of Service: 02/16/21 Subjective fell out of bed x 2 this AM. Continue with monitoring neuro status; work with PT; continue with antiepileptics Review of Systems 10-point ROS is otherwise unremarkable Physical Examination - Vital Signs reviewed - Physical Exam General: Alert, In no apparent distress Respiratory: Clear to auscultation bilaterally, Normal air movement Cardiovascular: Regular rate/rhythm, Normal S1 S2 Gastrointestinal: Normal bowel sounds, No tenderness Neurological: Normal speech, Normal tone, Normal affect Assessment & Plan - Problems (Diagnosis) (1) Status epilepticus Current Visit: Yes Status: Acute (2) Acute respiratory failure Current Visit: Yes Status: Acute (3) Elevated LFTs Current Visit: Yes Status: Acute (4) Acute renal insufficiency Current Visit: Yes Status: Acute (5) Elevated troponin Current Visit: Yes Status: Acute (6) Elevated CPK Current Visit: Yes Status: Acute (7) Acute CVA (cerebrovascular accident) Current Visit: Yes Status: Acute - Plan Continue with POC as mentioned below: 1. Continue with Antiepileptics 2. Diet as tolerated 3. Neurology and Nephrology consultation appreciated 4. Hep-Lock IV 5. Acidosis has improved. 6. ST 7. Continue with Ativan as needed 8. Continue with physical therapy 9. Renal function and liver his back to baseline 10.GI and DVT prophylaxis - Advance Directives Does patient have a Living Will: No Does patient have a Durable POA for Healthcare: No - Code Status/Comfort Care Code Status: Full Code
--- NOTE | 2021-02-18 00:36 | P.PN ---
Date of Service: 02/17/21 Subjective Did really well with PT; continue to strengthen and anticipate DC home in 48- 72hrs as strength increases. Review of Systems 10-point ROS is otherwise unremarkable Physical Examination - Vital Signs reviewed - Physical Exam General: Alert, In no apparent distress Respiratory: Clear to auscultation bilaterally, Normal air movement Cardiovascular: Regular rate/rhythm, Normal S1 S2 Gastrointestinal: Normal bowel sounds, No tenderness Neurological: Normal speech, Normal tone, Normal affect; weakness; right foot drop Assessment & Plan - Problems (Diagnosis) (1) Status epilepticus Current Visit: Yes Status: Acute (2) Acute respiratory failure Current Visit: Yes Status: Acute (3) Elevated LFTs Current Visit: Yes Status: Acute (4) Acute renal insufficiency Current Visit: Yes Status: Acute (5) Elevated troponin Current Visit: Yes Status: Acute (6) Elevated CPK Current Visit: Yes Status: Acute (7) Acute CVA (cerebrovascular accident) Current Visit: Yes Status: Acute - Plan Continue with POC as mentioned below: 1. Continue with Anti epileptics 2. Continue with mechanical ventilation; pulmonary consultation appreciated 3. Neurology and Nephrology consultation appreciated 4. Continue with IV hydration 5. Acidosis has improved. 6. Patient has been weaned off of Levophed 7. Continue with propofol drip; start Ativan and fentanyl 8. CT scan shows multi infarcts; started on anti-platelet therapy and statin therapy 9. Renal function and liver function improving 10. continue IV antibiotic therapies; rule out vegetation and possible endocarditis with an echocardiogram; 11. GI and DVT prophylaxis - Advance Directives Does patient have a Living Will: No Does patient have a Durable POA for Healthcare: No - Code Status/Comfort Care Code Status: Full Code
[2021-02-18] MEDS ORDERED: LORAZEPAM 0.5 MG TABLET PO ONE (03:19)
[2021-02-18 04:24] LABS: BUN Blood Urea Nitrogen 13 mg/dL (7-18); Bicarbonate 22 mmol/L (21-32); Glucose Level 92 mg/dL (74-106); Magnesium 2.1 mg/dL (1.8-2.4); Sodium Level 140 mmol/L (136-145)
[2021-02-18] MEDS: carvediloL 25 MG TAB PO SCH ×2 (06:03→17:27)
[2021-02-18] MEDS: levETIRAcetam 500 MG TAB PO SCH ×2 (09:37→21:46)
[2021-02-18] MEDS: SPIRONOLACTONE 25 MG TABLET PO SCH (09:37)
[2021-02-18] MEDS: FOLIC ACID 1 MG TABLET PO SCH (09:37)
[2021-02-18] MEDS: AMLODIPINE 5 MG TAB PO SCH ×2 (09:37→21:47)
[2021-02-18] MEDS: ENOXAPARIN 40 MG/0.4 ML SQ SCH (09:37)
[2021-02-18] MEDS: ASPIRIN EC 81 MG TAB PO SCH (09:37)
[2021-02-18] MEDS: FAMOTIDINE 20 MG TAB PO SCH ×2 (09:37→21:46)
[2021-02-18] MEDS: THIAMINE HCL 100 MG TABLET PO SCH (09:37)
[2021-02-18] MEDS: lisinopriL 10 MG TAB PO SCH ×2 (09:38→21:44)
[2021-02-18] MEDS: DOXAZOSIN 2 MG TAB PO SCH ×2 (09:38→21:00)
[2021-02-18] MEDS: AMOX/K CLAV 875 MG TAB PO SCH ×2 (09:38→21:44)
--- NOTE | 2021-02-18 12:09 | P.PN ---
Subjective Date of Service: 02/18/21 Primary Care Provider: none Chief Complaint: Respiratory failure stroke Subjective: No new changes, No C/O voiced Physical Examination - Vital Signs Temperature: 98.4 F Blood Pressure: 115/79 Pulse: 98 Respirations: 10 Pulse Ox (%): 99 - Physical Exam General: Alert, In no apparent distress, Oriented x3 HEENT: Atraumatic, Normocephalic Respiratory: Clear to auscultation bilaterally, Normal air movement Cardiovascular: Normal pulses, Regular rate/rhythm, Normal S1 S2 Gastrointestinal: Normal bowel sounds, Soft and benign, Non-distended Integumentary: No rashes, No breakdown Neurological: Normal speech, Normal strength at 5/5 x4 extr, Normal tone, Other (right foot droop) - Studies Medications List Reviewed: Yes Assessment And Plan Physician Review Additional Text: COVID: negative Initial CT Head: COMPARISON: None TECHNIQUE: Computed axial tomography of the head was obtained. IV contrast was not requested. All CT scans are performed using dose optimization technique as appropriate and may include automated exposure control or mA/KV adjustment according to patient size. FINDINGS: An intracranial bleed is not seen . Subtle low-density area right internal capsule and left caudate The ventricles are normal in caliber. No extra-axial fluid collection is noted. Fluid within the sinuses/ mastoids is not seen. IMPRESSION: Subtle low-density areas right internal capsule and left caudate. These could be acute or chronic. Follow up CT Head: COMPARISON: 02/06/2021 TECHNIQUE: Axial CT of the head obtained from the skull apex to the skull base without contrast. This exam was performed according to our departmental dose- optimization program, which includes automated exposure control, adjustment of the mA and/or kV according to patient size and/or use of iterative reconstruction technique. FINDINGS: No acute intracranial hemorrhage identified. Interval development of well-circumscribed hypodensities involving the anterior left centrum semiovale and the left posterior malcolm radiata. . Interval progression of hypodensities in the bilateral basal ganglia and bilateral cerebellum. Regions likely represent areas of cytotoxic edema. Interval distention involving the temporal horn of the lateral ventricles. No significant midline shift. The visualized paranasal sinuses and the mastoid air cells are relatively well aerated. No skull fracture identified. Visualized orbits and globes are unremarkable. Excellent visualization of NG tube. IMPRESSION: 1. Interval development of well-circumscribed hypodensities involving the anterior left centrum semiovale and the left posterior malcolm radiata. Interval progression of hypodensities in the bilateral basal ganglia and bilateral cerebellum. Regions likely represent areas of cytotoxic edema. These findings are concerning for acute or subacute infarction. MRI of the brain recommended. 2. Interval distention involving the temporal horn of the lateral ventricles. This may indicate developing communicating hydrocephalus. ECHO: MEASUREMENTS (cm) DIASTOLIC (NORMALS) SYSTOLIC (NORMALS) IVSd 1.2 (0.6-1.2) LA Diam 2.3 (1.9-4.0) LVEF 71% LVIDd 3.5 (3.5-5.7) LVIDs 2.1 (2.0-3.5) %FS 40% LVPWd 1.0 (0.6-1.2) Ao Diam 2.8 (2.0-3.7) 2 DIMENSIONAL ASSESSMENT: RIGHT ATRIUM: NORMAL LEFT ATRIUM: NORMAL RIGHT VENTRICLE: NORMAL LEFT VENTRICLE: NORMAL TRICUSPID VALVE: MITRAL VALVE: PULMONIC VALVE: NORMAL AORTIC VALVE: NORMAL PERICARDIAL EFFUSION: NONE AORTIC ROOT: NORMAL LEFT VENTRICULAR WALL MOTION: NORMAL DOPPLER/COLOR FLOW: SEE BELOW. COMMENTS: NORMAL LEFT VENTRICULAR EJECTION FRACTION > 60% WITH NORMAL WALL MOTION. MILD TRICUSPID AND MITRAL REGURGITATION. NO CLEAR VEGETATION IS SEEN ON THIS EXAM. KUB: COMPARISON: No comparisons FINDINGS: NG tube tip overlies the stomach. Right femoral line with tip overlying the L4 vertebral body. The bowel is relatively gasless and without evidence of obstruction. Mild scoliosis. IMPRESSION: Relatively gasless appearance of the abdomen which could be due to decompressed and/or fluid filled bowel. Though not excluded, an ileus or bowel obstruction considered less likely. . Carotid doppler: FINDINGS: Normal high resistance waveforms are noted in both external carotid a rteries. The common carotid arteries and internal carotid arteries show normal low resistance waveforms. No significant plaque formation is seen. Peak systolic and end diastolic velocity values and the ICA/CCA ratios are in the non-hemodynamically significant range. Antegrade flow seen in both vertebral arteries. Velocity values and ratios were recorded and are retained in the patient's imaging records. IMPRESSION: No significant atherosclerotic changes noted. No evidence of a hemodynamically significant stenosis. Follow up CT Head 02/09/2021: COMPARISON: February 07, 2021 TECHNIQUE: Computed axial tomography of the head was obtained. Unenhanced and enhanced images obtained. 50 cc Isovue-[address] scans are performed using dose optimization technique as appropriate and may include automated exposure control or mA/KV adjustment according to patient size. FINDINGS: An intracranial bleed is not seen . The temporal horns of the lateral ventricles bilaterally remain dilated. The third, fourth and remainder of the lateral ventricles are normal caliber. Low-density areas within the right and left cerebellum, right and left internal capsule, left basal ganglia, left external capsule, periventricular white matter bilaterally, left frontal lobe and posterior right frontal lobe are without significant change from the prior examination. No extra-axial fluid collection is noted. No abnormal enhancement seen Fluid within the sinuses/ mastoids is not seen. IMPRESSION: Bilateral hypodensities involving the cerebrum and cerebellum without significant change from the prior exam. I suspect this is secondary to a metabolic disturbance perhaps extrapontine myelinolysis. Infarction is another consideration. When the patient's condition permits MRI is recommended Follow up CXR 02/10/2021: CLINICAL HISTORY: Device placement endotracheal tube placement IMPRESSION: Endotracheal tube has been retracted and is in good position. Follow up KUB 02/10/2021: CLINICAL HISTORY: Abdomen pain. FINDINGS: The bowel gas pattern is unremarkable. Right femoral catheter has its tip overlying L4. Nasogastric tube within the proximal stomach MRI Brain: FINDINGS: No intracranial hemorrhage is present. No mass effect, diffuse cerebral edema or shift of midline structures. No cerebral sulcal effacement or basilar cistern effacement. Diffusion-weighted imaging shows numerous small to medium sized areas of abnormal diffusion throughout the cerebral hemispheres and in the basal ganglia. There is symmetric abnormal diffusion signal along the medial aspects of the temporal lobes coursing toward the splenium of the corpus callosum. There is less intense diffusion signal abnormality in each cerebellar hemisphere, also symmetric. These areas have hypointense T1 signal. There is corresponding diminished signal on ADC mapping sequence. No brainstem involvement. Lesions are hyperintense on T2/IR sequencing with postcontrast imaging showing a peripheral enhancement pattern in the larger symmetric lesions and some of the larger asymmetric cerebral lesions. The symmetric lesions in the medial temporal lobes do not clearly enhance. Symmetric basal ganglia foci are present. A few lesions in the periventricular white matter left frontal lobe are oriented perpendicular to the lateral ventricle. An acute cortical based infarction is not seen. No extra-axial fluid collections. Che matter- white matter junction is preserved. Signal voids are seen as a normal finding in the major intracranial vessels. No venous sinus thrombosis. No globe or orbital content abnormality. Mastoid air cells and paranasal sinuses are clear. Available history indicates chronic recreational drug usage, possibly psychoactive herb called Kratom. Findings are believed to be constellation of acute and chronic changes related to the recreational drug use as well as changes related to prolonged seizure activity. Many of the smaller non symmetrical cerebral lesions are sequela of acute infarction. The nonenhancing medial temporal lobe changes may be related to localized anoxia from the prolonged seizure. The enhancing symmetrical cerebellum and basal ganglia lesions as well as the asymmetric enhancing cerebral lesions are probably chronic changes related to a metabolic process, possibly the recreational drug. IMPRESSION: Numerous areas of abnormal signal intensity and enhancement scattered throughout the cerebral hemispheres, basal ganglia and cerebellum with both symmetric and non symmetric distribution patterns. The smaller nonenhancing cerebral lesions are probably acute CVA with the medial temporal lobe symmetric signal abnormalities related to anoxic insult from the status epilepticus. The larger, symmetric cerebellum and basal ganglia lesions and the non symmetric larger enhancing lesions are favored to be chronic sequela of the patient's recreational drug usage. Outside consultation is being sought and an addendum will be issued if any additional insight can be provided. MRA Brain: COMPARISON: MRI brain same date TECHNIQUE: Axial and coronal 3D [id number] image acquisition was performed. 3D rotational images were generated with source and reconstruction images reviewed. Horizontal and vertical axis rotational views generated using MIP protocol. FINDINGS: Distal vertebral arteries and basilar artery show no focal abnormalities. Posterior cerebral arteries show no significant disease. The bilateral internal carotid arteries without dissection, stenosis or acute finding. The bilateral A1 segments of the anterior cerebral arteries are narrowed and irregular. Slight irregular contour seen in the bilateral anterior cerebral arteries distal to the A1 segments. Only minimal luminal narrowing seen in the bilateral middle cerebral arteries. No aneurysm or vascular malformation. IMPRESSION: Irregular luminal narrowing changes in each anterior cerebral artery and minimal luminal changes in the bilateral middle cerebral arteries. Patient is relatively young for significant atherosclerotic disease. Vasculitis is possible etiology. MRA Neck: COMPARISON: MRA head same date, MRA brain same date TECHNIQUE: MR angiography of the cervical vasculature performed. Coronal imaging plane acquisition utilized. A 19 MultiHance contrast volume was utilized. Coronal reformatted images were generated and reviewed. Vertical axis 3D rotational projections obtained using maximum intensity projection protocol. FINDINGS: Aortic arch is bovine configuration with no origins stenoses. Vertebral arteries show no origin abnormalities. The bilateral common carotid and internal carotid arteries show no dissection, stenosis, vasculitis or other acute finding. Codominant vertebral arteries also without significant or suspicious finding. Partially imaged subclavian arteries show no abnormalities. IMPRESSION: Negative contrast MRA neck examination. Physical exam: General: Patient more alert and appropriate today. HEENT: Neck supple Respiratory: Clear to auscultation bilaterally, Normal air movement Cardiovascular: Regular rate/rhythm, Normal S1 S2 Gastrointestinal: Soft. Nondistended. Musculoskeletal: No clubbing, No swelling Integumentary: No rashes Neurological: Better strength to the right side. 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 pneumonia Ileus GERD Impression Status epilepticus with Lonnie's paralysis on the right side likely related to recent substance abuse/metabolic disturbance with abnormal MRI brain findings likely related to substance abuse: Patient overall improved. Strength to the right side appears stable but poor. This may be her new baseline. MRI reviewed with neurology and radiology. MRI showed Numerous areas of abnormal signal intensity and enhancement scattered throughout the cerebral hemispheres, basal ganglia and cerebellum with both symmetric and non symmetric distribution patterns. The smaller nonenhancing cerebral lesions are probably acute CVA with the medial temporal lobe symmetric signal abnormalities related to anoxic insult from the status epilepticus. The larger, symmetric cerebellum and basal ganglia lesions and the non symmetric larger enhancing lesions are favored to be chronic sequela of the patient's recreational drug usage. Outside consultation is being sought and an addendum will be issued if any additional insight can be provided. Await final analysis. Case discussed at length with neurology. Continue antiseizure medication. Continue Keppra 1000 mg p.o. twice daily and Dilantin 300 mg at bedtime. Recent labs shows therapeutic range. Continue with physical therapy and occupational Therapy to increase ambulation. Blood pressure was low today. Bolus given. Will make adjustments to medication. Will decrease carvedilol to 12.5 mg 1 pill twice daily. Continue lisinopril, Norvasc. Will discontinue Aldactone. Encourage oral intake. Continue to adjust medication. Continue folic acid. Anticipate improvement over the next 1 to 2 days. Home once patient is able to ambulate appropriately and safe for discharge. I will turn the service over to the hospitalist team tomorrow. I will go plan of care with him. Acute respiratory failure with bacteremia, blood culture positive for strep pneumoniae: Patient has done well. Patient on room air. Continue Augmentin. Patient will need 14-day treatment. Currently on day 7. Repeat blood culture so far negative. Elevated Troponin likely ischemic demand: Continue aspirin 81 mg daily. Plavix discontinued. Echocardiogram shows normal ejection fraction. HTN uncontrolled: Pressure was low today. Will make adjustments to her medicati on. Will discontinue Aldactone 25 mg daily. Will decrease carvedilol to 12.5 mg 1 pill twice daily. Continue lisinopril 20 mg 1 pill twice daily and Norvasc 5 mg 1 pill twice daily. Continue to adjust medication. Acute renal failure: Renal function back to baseline. Discontinue IV fluids. Continue with nephrology recommendations Acute liver failure: Liver function improved. Will monitor closely. Ileus: This has resolved. Continue with oral nutrition. GERD: Continue with Pepcid. - Plan Continue physical therapy Family he has been taught physical therapy moves as patient does not have benefit for SNF Plan to discharge in a.m. after family teaching Continue other plan Continue with POC as mentioned below: 1. Continue with Anti epileptics 2. C continue started on anti-platelet therapy and statin therapy 9. Renal function and liver function improving
--- NOTE | 2021-02-18 14:41 | PN ---
Date of Progress Note: 02/18/2021 Subjective: The patient was admitted with acute kidney injury, severe acidosis. The patient did not require any dialysis. The patient was on bicarb drip. Workup for secondary hypertension still pend ing. The patient was started on blood pressure medications. Blood pressure better controlled. Physical Examination: Vital Signs: Blood pressure 115/79, pulse of 98. Chest: Clear to auscultation. Heart: S1, S2. Regular. Abdomen: Soft, nontender. Extremity: No edema. Neurologic: Alert. Follow command. No focality. Laboratory Data: WBC 9.6, H and H 10.2/29.7. Sodium 140, potassium 4, bicarb 22, BUN 13, creatinine 0.6, calcium 8.9, magnesium 2.1. Current Medications: The patient on include: 1.Aspirin. 2.Augmentin. 3.Lovenox. 4.Amlodipine 5 mg b.i.d. 5.Carvedilol 25 b.i.d. 6.Doxazosin. 7.Lisinopril 20. 8.Spironolactone 25 daily. 9.Keppra. Assessment And Plan: 1.Acute kidney injury secondary to prerenal, recovered, resolved. 2.Acidosis. 3.High anion gap. 4.Metabolic acidosis without any osmolar gap secondary to lactic acidosis, recovered, resolved. 5.Hypernatremia, resolved. 6.Secondary hypertension currently controlled, optimal, waiting for the hormonal workup. Continue current treatment. 7.Cerebrovascular accident as by primary. CHAY Voice ID: [id number] Report ID: [id number]
[2021-02-18] MEDS: PHENYTOIN ER 100 MG CAP PO SCH (21:45)
[2021-02-18] MEDS: MELATONIN 5 MG TABLET PO PRN (21:46)
[2021-02-19] MEDS: carvediloL 25 MG TAB PO SCH (05:25)
--- NOTE | 2021-02-19 06:03 | P.PN ---
Subjective Date of Service: 02/19/21 Primary Care Provider: none Chief Complaint: Respiratory failure stroke Subjective: No new changes Physical Examination - Vital Signs Temperature: 97.6 F Blood Pressure: 148/97 Pulse: 88 Respirations: 17 Pulse Ox (%): 100 - Physical Exam General: In no apparent distress HEENT: Atraumatic, Normocephalic Neck: Supple Respiratory: Clear to auscultation bilaterally Cardiovascular: No rubs, No murmurs Gastrointestinal: Soft and benign, Non-distended Musculoskeletal: No clubbing Integumentary: No warmth Neurological: Normal speech, Normal tone Lymphatics: No axilla or inguinal lymphadenopathy Urinary: Other (no bladder distention) External genitalia: Deferred Rectal: Deferred - Studies Medications List Reviewed: Yes Assessment And Plan - Plan # KELLEY 2/2 prerenal state/ATN Resolved [place] po fluid intake Monitor renal panel # Htn Cont current BP med regimen # Status epilepticus 2/2 illicit rx use +R sided weakness Head MRI w/ areas of ischemia that's likely seizure related; probable acute CVA. On anti-seizure meds Per Neurology PT/OT # Strep pneumo bactreremia Abx per primary team # Acute liver failure Improved, monitor LFT # Ileus Resolved Feeding tube removed Encourage po intake # Hypokalemia Improved Encourage po intake KCl suppl prn Cont natalee # Dispo Unfunded May dc today
[2021-02-19] MEDS: ENOXAPARIN 40 MG/0.4 ML SQ SCH (08:18)
[2021-02-19] MEDS: ASPIRIN EC 81 MG TAB PO SCH (08:18)
[2021-02-19] MEDS: THIAMINE HCL 100 MG TABLET PO SCH (08:19)
[2021-02-19] MEDS: AMOX/K CLAV 875 MG TAB PO SCH (08:19)
[2021-02-19] MEDS: DOXAZOSIN 2 MG TAB PO SCH (08:19)
[2021-02-19] MEDS: lisinopriL 10 MG TAB PO SCH (08:19)
[2021-02-19] MEDS: levETIRAcetam 500 MG TAB PO SCH (08:19)
[2021-02-19] MEDS: AMLODIPINE 5 MG TAB PO SCH (08:19)
[2021-02-19] MEDS: FOLIC ACID 1 MG TABLET PO SCH (08:20)
[2021-02-19] MEDS: SPIRONOLACTONE 25 MG TABLET PO SCH (08:20)
[2021-02-19] MEDS: FAMOTIDINE 20 MG TAB PO SCH (08:20)
--- NOTE | 2021-02-19 14:25 | P.DS ---
Admission Date: 02/06/21 Discharge Date: 02/19/21 Primary Care Provider: none Disposition: ROUTINE DISCHARGE Discharge Condition: FAIR Reason for Admission: Respiratory failure stroke - Problems (1) Acute CVA (cerebrovascular accident) Current Visit: Yes Status: Acute (2) Acute renal insufficiency Current Visit: Yes Status: Acute (3) Status epilepticus Current Visit: Yes Status: Acute Hospital Course: Initial CT Head: COMPARISON: None TECHNIQUE: Computed axial tomography of the head was obtained. IV contrast was not requested. All CT scans are performed using dose optimization technique as appropriate and may include automated exposure control or mA/KV adjustment according to patient size. FINDINGS: An intracranial bleed is not seen . Subtle low-density area right internal capsule and left caudate The ventricles are normal in caliber. No extra-axial fluid collection is noted. Fluid within the sinuses/ mastoids is not seen. IMPRESSION: Subtle low-density areas right internal capsule and left caudate. These could be acute or chronic. Follow up CT Head: COMPARISON: 02/06/2021 TECHNIQUE: Axial CT of the head obtained from the skull apex to the skull base without contrast. This exam was performed according to our departmental dose- optimization program, which includes automated exposure control, adjustment of the mA and/or kV according to patient size and/or use of iterative reconstruction technique. FINDINGS: No acute intracranial hemorrhage identified. Interval development of well-circumscribed hypodensities involving the anterior left centrum semiovale and the left posterior malcolm radiata. . Interval progression of hypodensities in the bilateral basal ganglia and bilateral cerebellum. Regions likely represent areas of cytotoxic edema. Interval distention involving the temporal horn of the lateral ventricles. No significant midline shift. The visualized paranasal sinuses and the mastoid air cells are relatively well aerated. No skull fracture identified. Visualized orbits and globes are unremarkable. Excellent visualization of NG tube. IMPRESSION: 1. Interval development of well-circumscribed hypodensities involving the anterior left centrum semiovale and the left posterior malcolm radiata. Interval progression of hypodensities in the bilateral basal ganglia and bilateral cerebellum. Regions likely represent areas of cytotoxic edema. These findings are concerning for acute or subacute infarction. MRI of the brain recommended. 2. Interval distention involving the temporal horn of the lateral ventricles. This may indicate developing communicating hydrocephalus. ECHO: MEASUREMENTS (cm) DIASTOLIC (NORMALS) SYSTOLIC (NORMALS) IVSd 1.2 (0.6-1.2) LA Diam 2.3 (1.9-4.0) LVEF 71% LVIDd 3.5 (3.5-5.7) LVIDs 2.1 (2.0-3.5) %FS 40% LVPWd 1.0 (0.6-1.2) Ao Diam 2.8 (2.0-3.7) 2 DIMENSIONAL ASSESSMENT: RIGHT ATRIUM: NORMAL LEFT ATRIUM: NORMAL RIGHT VENTRICLE: NORMAL LEFT VENTRICLE: NORMAL TRICUSPID VALVE: MITRAL VALVE: PULMONIC VALVE: NORMAL AORTIC VALVE: NORMAL PERICARDIAL EFFUSION: NONE AORTIC ROOT: NORMAL LEFT VENTRICULAR WALL MOTION: NORMAL DOPPLER/COLOR FLOW: SEE BELOW. COMMENTS: NORMAL LEFT VENTRICULAR EJECTION FRACTION > 60% WITH NORMAL WALL MOTION. MILD TRICUSPID AND MITRAL REGURGITATION. NO CLEAR VEGETATION IS SEEN ON THIS EXAM. KUB: COMPARISON: No comparisons FINDINGS: NG tube tip overlies the stomach. Right femoral line with tip overlying the L4 vertebral body. The bowel is relatively gasless and without evidence of obstruction. Mild scoliosis. IMPRESSION: Relatively gasless appearance of the abdomen which could be due to decompressed and/or fluid filled bowel. Though not excluded, an ileus or bowel obstruction considered less likely. . Carotid doppler: FINDINGS: Normal high resistance waveforms are noted in both external carotid arteries. The common carotid arteries and internal carotid arteries show normal low resistance waveforms. No significant plaque formation is seen. Peak systolic and end diastolic velocity values and the ICA/CCA ratios are in the non-hemodynamically significant range. Antegrade flow seen in both vertebral arteries. Velocity values and ratios were recorded and are retained in the patient's imaging records. IMPRESSION: No significant atherosclerotic changes noted. No evidence of a hemodynamically significant stenosis. Follow up CT Head 02/09/2021: COMPARISON: February 07, 2021 TECHNIQUE: Computed axial tomography of the head was obtained. Unenhanced and enhanced images obtained. 50 cc Isovue-[address] scans are performed using dose optimization technique as appropriate and may include automated exposure control or mA/KV adjustment according to patient size. FINDINGS: An intracranial bleed is not seen . The temporal horns of the lateral ventricles bilaterally remain dilated. The third, fourth and remainder of the lateral ventricles are normal caliber. Low-density areas within the right and left cerebellum, right and left internal capsule, left basal ganglia, left external capsule, periventricular white matter bilaterally, left frontal lobe and posterior right frontal lobe are without significant change from the prior examination. No extra-axial fluid collection is noted. No abnormal enhancement seen Fluid within the sinuses/ mastoids is not seen. IMPRESSION: Bilateral hypodensities involving the cerebrum and cerebellum without significant change from the prior exam. I suspect this is secondary to a metabolic disturbance perhaps extrapontine myelinolysis. Infarction is another consideration. When the patient's condition permits MRI is recommended Follow up CXR 02/10/2021: CLINICAL HISTORY: Device placement endotracheal tube placement IMPRESSION: Endotracheal tube has been retracted and is in good position. Follow up KUB 02/10/2021: CLINICAL HISTORY: Abdomen pain. FINDINGS: The bowel gas pattern is unremarkable. Right femoral catheter has its tip overlying L4. Nasogastric tube within the proximal stomach MRI Brain: FINDINGS: No intracranial hemorrhage is present. No mass effect, diffuse cerebral edema or shift of midline structures. No cerebral sulcal effacement or basilar cistern effacement. Diffusion-weighted imaging shows numerous small to medium sized areas of abnormal diffusion throughout the cerebral hemispheres and in the basal ganglia. There is symmetric abnormal diffusion signal along the medial aspects of the temporal lobes coursing toward the splenium of the corpus callosum. There is less intense diffusion signal abnormality in each cerebellar hemisphere, also symmetric. These areas have hypointense T1 signal. There is corresponding diminished signal on ADC mapping sequence. No brainstem involvement. Lesions are hyperintense on T2/IR sequencing with postcontrast imaging showing a peripheral enhancement pattern in the larger symmetric lesions and some of the larger asymmetric cerebral lesions. The symmetric lesions in the medial temporal lobes do not clearly enhance. Symmetric basal ganglia foci are present. A few lesions in the periventricular white matter left frontal lobe are oriented perpendicular to the lateral ventricle. An acute cortical based infarction is not seen. No extra-axial fluid collections. Che matter- white matter junction is preserved. Signal voids are seen as a normal finding in the major intracranial vessels. No venous sinus thrombosis. No globe or orbital content abnormality. Mastoid air cells and paranasal sinuses are clear. Available history indicates chronic recreational drug usage, possibly psychoactive herb called Kratom. Findings are believed to be constellation of acute and chronic changes related to the recreational drug use as well as changes related to prolonged seizure activity. Many of the smaller non symmetrical cerebral lesions are sequela of acute infarction. The nonenhancing medial temporal lobe changes may be related to localized anoxia from the prolonged seizure. The enhancing symmetrical cerebellum and basal ganglia lesions as well as the asymmetric enhancing cerebral lesions are probably chronic changes related to a metabolic process, possibly the recreational drug. IMPRESSION: Numerous areas of abnormal signal intensity and enhancement scattered throughout the cerebral hemispheres, basal ganglia and cerebellum with both symmetric and non symmetric distribution patterns. The smaller nonenhancing cerebral lesions are probably acute CVA with the medial temporal lobe symmetric signal abnormalities related to anoxic insult from the status epilepticus. The larger, symmetric cerebellum and basal ganglia lesions and the non symmetric larger enhancing lesions are favored to be chronic sequela of the patient's recreational drug usage. Outside consultation is being sought and an addendum will be issued if any additional insight can be provided. MRA Brain: COMPARISON: MRI brain same date TECHNIQUE: Axial and coronal 3D [id number] image acquisition was performed. 3D rotational images were generated with source and reconstruction images reviewed. Horizontal and vertical axis rotational views generated using MIP protocol. FINDINGS: Distal vertebral arteries and basilar artery show no focal abnormalities. Posterior cerebral arteries show no significant disease. The bilateral internal carotid arteries without dissection, stenosis or acute finding. The bilateral A1 segments of the anterior cerebral arteries are narrowed and irregular. Slight irregular contour seen in the bilateral anterior cerebral arteries distal to the A1 segments. Only minimal luminal narrowing seen in the bilateral middle cerebral arteries. No aneurysm or vascular malformation. IMPRESSION: Irregular luminal narrowing changes in each anterior cerebral artery and minimal luminal changes in the bilateral middle cerebral arteries. Patient is relatively young for significant atherosclerotic disease. Vasculitis is possible etiology. MRA Neck: COMPARISON: MRA head same date, MRA brain same date TECHNIQUE: MR angiography of the cervical vasculature performed. Coronal imaging plane acquisition utilized. A 19 MultiHance contrast volume was utilized. Coronal reformatted images were generated and reviewed. Vertical axis 3D rotational projections obtained using maximum intensity projection protocol. FINDINGS: Aortic arch is bovine configuration with no origins stenoses. Vertebral arteries show no origin abnormalities. The bilateral common carotid and internal carotid arteries show no dissection, stenosis, vasculitis or other acute finding. Codominant vertebral arteries also without significant or suspicious finding. Partially imaged subclavian arteries show no abnormalities. IMPRESSION: Negative contrast MRA neck examination. Physical exam: General: Patient more alert and appropriate today. HEENT: Neck supple Respiratory: Clear to auscultation bilaterally, Normal air movement Cardiovascular: Regular rate/rhythm, Normal S1 S2 Gastrointestinal: Soft. Nondistended. Musculoskeletal: No clubbing, No swelling Integumentary: No rashes Neurological: Better strength to the right side. 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 She was subsequently noted to have MRI findings of acute infarct with right hemiparesis. Her hospital course treatment included intubation with mechanical ventilation, presence of strep pneumonia bacteremia as well as demand- mediated ischemia in setting of hypertensive urgency and acute renal failure. She also noted to have a transient period of abdominal ileus which resolved. Her renal function has returned to baseline. Patient continues to have gait instability due to right hemiparesis. She was evaluated by PT and continued physical therapy during hospitalization. Initial plan was to discharge patient to SNF but due to insurance reasons patient was unable to be accepted at any facility. Family has been taught basic physical therapy maneuvers and will be assisting patient with ambulation prior to insurance approval for SNF as outpatient. Patient still exhibits mild cognitive impairment but expected to continue to improve with continued physical therapy. She will be discharged home under care of family today Vital Signs/Physical Exam: Temp Pulse Resp BP Pulse Ox 97.8 F 95 H 16 124/67 100 02/19/21 12:00 02/19/21 12:00 02/19/21 12:00 02/19/21 12:00 02/19/21 12:00 Laboratory Data at Discharge: WBC 9.60 K/uL (4.3-10.9) 02/11/21 03:55 Hgb 10.2 g/dL (12.0-15.0) L 02/11/21 03:55 Hct 29.7 % (36.0-45.0) L 02/11/21 03:55 Plt Count 181 K/uL (152-406) 02/11/21 03:55 PT 15.1 SECONDS (9.5-12.5) H 02/07/21 05:00 INR 1.31 02/07/21 05:00 APTT 29.8 SECONDS (24.3-36.9) 02/07/21 05:00 Sodium 140 mmol/L (136-145) 02/18/21 03:27 Potassium 4.0 mmol/L (3.5-5.1) 02/18/21 03:27 BUN 13 mg/dL (7-18) 02/18/21 03:27 Creatinine 0.69 mg/dL (0.55-1.3) 02/18/21 03:27 Glucose 92 mg/dL (74-106) 02/18/21 03:27 Uric Acid 9.1 mg/dL (2.6-6.0) H 02/06/21 13:52 Phosphorus 3.1 mg/dL (2.5-4.9) 02/17/21 03:19 Phosphorus Cancelled 02/17/21 03:19 Magnesium 2.1 mg/dL (1.8-2.4) 02/18/21 03:27 Total Bilirubin 0.6 mg/dL (0.2-1.0) 02/11/21 03:55 AST 56 U/L (15-37) H 02/11/21 03:55 ALT 164 U/L (12-78) H 02/11/21 03:55 Alkaline Phosphatase 122 U/L (45-117) H 02/11/21 03:55 Troponin I 2.85 ng/mL (0.0-0.045) H* 02/09/21 05:10 Amylase 807 U/L (25-115) H* 02/06/21 08:33 Lipase 182 U/L (73-393) 02/07/21 05:00 Home Medications: Amlodipine [Norvasc*] 5 mg PO BID #60 tab 02/19/21 Amox/Clavulanate [Augmentin 875-125 Tab*] 875 mg PO BID #3 tab 02/19/21 Doxazosin [Cardura*] 1 mg PO BID #30 tab 02/19/21 Famotidine [Pepcid*] 20 mg PO BID #60 tab 02/19/21 Melatonin 10 mg PO BEDTIME PRN PRN #30 tablet 02/19/21 PHENYTOIN ER Cap [Dilantin ER Cap*] 300 mg PO BEDTIME #60 cap 02/19/21 Spironolactone [Aldactone*] 25 mg PO DAILY #30 tab 02/19/21 Thiamine HCl [Vitamin B-1*] 100 mg PO DAILY #30 tablet 02/19/21 carvediloL [Coreg*] 25 mg PO BID 6AM 6PM #60 tab 02/19/21 levETIRAcetam [Keppra*] 1,000 mg PO BID #120 tab 02/19/21 lisinopriL [Prinivil*] 20 mg PO BID #60 tab 02/19/21 New Medications: Spironolactone [Aldactone*] 25 mg PO DAILY #30 tab Amox/Clavulanate [Augmentin 875-125 Tab*] 875 mg PO BID #3 tab Doxazosin [Cardura*] 1 mg PO BID #30 tab carvediloL [Coreg*] 25 mg PO BID 6AM 6PM #60 tab PHENYTOIN ER Cap [Dilantin ER Cap*] 300 mg PO BEDTIME #60 cap levETIRAcetam [Keppra*] 1,000 mg PO BID #120 tab Melatonin 10 mg PO BEDTIME PRN PRN #30 tablet PRN Reason: Insomnia Amlodipine [Norvasc*] 5 mg PO BID #60 tab Famotidine [Pepcid*] 20 mg PO BID #60 tab lisinopriL [Prinivil*] 20 mg PO BID #60 tab Thiamine HCl [Vitamin B-1*] 100 mg PO DAILY #30 tablet Diet: Low sodium Activity: assit with ambulation Followup: NONE,NONE [Primary Care Provider] - Time spent managing pt's care (in minutes): 35
[2021-02-19 23:19] VITALS: BP 148/97; TEMP 97.6
== END 2021-02-19 15:15 | disposition home or self-care (01) | DRG 64 ==
LOC: ER 08:11 → ERHOLD 13:42 → 4TH 02-15 20:15
PROVIDERS: ADMIT Hospitalist; ATTEND Internal Medicine
PROC: 5A1955Z Respiratory Ventilation, Greater than 96 Consecutive Hours (ICD-10-PCS; principal; 2021-02-06)
PROC: 0BH17EZ Insertion of Endotracheal Airway into Trachea, Via Natural or Artificial Opening (ICD-10-PCS; 2021-02-06)
PROC: 009U3ZX Drainage of Spinal Canal, Percutaneous Approach, Diagnostic (ICD-10-PCS; 2021-02-06)
DX: I63.9 Cerebral infarction, unspecified (principal); J96.00 Acute respiratory failure, unspecified whether with hypoxia or hypercapnia; N17.0 Acute kidney failure with tubular necrosis; K72.00 Acute and subacute hepatic failure without coma; E87.2 Acidosis; E87.0 Hyperosmolality and hypernatremia; K56.7 Ileus, unspecified; R78.81 Bacteremia; N39.0 Urinary tract infection, site not specified; G81.91 Hemiplegia, unspecified affecting right dominant side; G40.901 Epilepsy, unspecified, not intractable, with status epilepticus; I10 Essential (primary) hypertension; R94.5 Abnormal results of liver function studies; R77.8 Other specified abnormalities of plasma proteins; F17.200 Nicotine dependence, unspecified, uncomplicated; Z88.8 Allergy status to other drugs, medicaments and biological substances; Z88.1 Allergy status to other antibiotic agents; Z20.822 Contact with and (suspected) exposure to COVID-19; E87.6 Hypokalemia; N28.9 Disorder of kidney and ureter, unspecified; Z79.82 Long term (current) use of aspirin; Z79.02 Long term (current) use of antithrombotics/antiplatelets; Z79.899 Other long term (current) drug therapy; E83.39 Other disorders of phosphorus metabolism; D64.9 Anemia, unspecified; G83.84 Todd's paralysis (postepileptic); E88.9 Metabolic disorder, unspecified; B95.3 Streptococcus pneumoniae as the cause of diseases classified elsewhere; K21.9 Gastro-esophageal reflux disease without esophagitis
CPT/HCPCS: 31500; 36415; 51702; 62270; 70450; 70544; 70549; 70553; 71045; 72125; 74018; 80048; 80053; 80069; 80076; 80177; 80185; 80202; 80307; 80320; 80329; 81003; 81015; 81025; 82040; 82088; 82150; 82550; 82553; 82570; 82805; 82945; 82947; 83605; 83690; 83735; 83835; 83880; 83921; 83930; 83935; 84100; 84132; 84145; 84156; 84157; 84165; 84244; 84300; 84443; 84484; 84550; 85014; 85018; 85025; 85610; 85730; 87040; 87070; 87077; 87086; 87088; 87186; 87205; 89050; 92610; 93005; 93306; 93880; 93970; 94002; 94003; 95816; 97110; 97112; 97116; 97161; 97530; 99291; 99292; A9577; J0330; J1170; J1650; J1953; J2250; J2405; J2704; J3010; J3370; J3411; J3480; J7030; J7040; J7050; J7060; Q2009; U0003